=== PATIENT | female | born 1940 | race Asian ===

== ENCOUNTER 2016-10-12 19:47 | Emergency (ER) | payer MEDICARE, OTHER ==
[~2016-10-12] VITALS: Ht 157.5 cm; Wt 62.5 kg
[~2016-10-12 19:47] MED LIST: AMLO5TAB4 PO; ASPI-535 PO; ATEN50TA PO; DCL25TEC PO; GLIP1TAB5 PO; LORA-186 PO; MONT10TA21 PO; OLME1TAB28 PO
[2016-10-12 20:01] VITALS: Ht 157.5 cm; Wt 62.5 kg
[2016-10-12] MEDS ORDERED: FAMOTIDINE 20 MG INJ IV STA (21:13)
[2016-10-12] MEDS ORDERED: LIDOCAINE/MYLANTA 40 ML BTL PO STA (21:13)
[2016-10-12] MEDS ORDERED: SOD CHLORIDE 0.9% 500 ML IV STA (21:13)
--- NOTE | 2016-10-12 21:17 | ERA ---
ER Documentation Chief Complaint Date/Time DATE: 10/12/16 TIME: 21:17 Chief Complaint palpitations/dizziness/abdominal pain x 2 weeks HPI A very nice 76-year-old female who presents to the emergency room with epigastric abdominal discomfort for approximately 2 weeks. The patient describes some mild dull discomfort to the epigastrium with associated nausea and lightheadedness. She denies any vomiting, she denies any melena. The patient states that she felt like she might pass out today. She denies any exertional symptoms, no diaphoresis, no shortness of breath, no pleuritic pain. ROS All systems reviewed and are negative except as per history of present illness. Medications Home Meds Reported Medications Dextromethorphan Hb-Promethazine Hcl* (Promethazine DM* Syrup) 473 Ml Syrup, 5 ML PO Q6 Y for COUGH, ML 10/12/16 Glipizide/Metformin HCl (Glipizide-Metformin 2.5-500 mg) 1 Each Tablet, 1 EACH PO BID, TAB 10/12/16 Losartan Potassium* (Losartan Potassium*) 100 Mg Tablet, 100 MG PO DAILY, TAB 10/12/16 Omeprazole* (Omeprazole*) 20 Mg Capsule.dr, 20 MG PO DAILY, #30 CAP 10/12/16 Amlodipine Besylate* (Norvasc*) 5 Mg Tablet, 5 MG PO DAILY, TAB 10/12/16 Atenolol/Chlorthalidone (Atenolol-Chlorthalidone 50-25) 1 Each Tablet, 1 EACH PO DAILY, TAB 10/12/16 Discontinued Reported Medications Glipizide-Metformin (Glipizide-Metformin) 2.5-500 Tab, 1 TAB PO BID, TAB 11/09/14 Diclofenac Sodium* (Diclofenac Sodium*) 25 Mg Tablet.dr, 50 MG PO BID Y for PAIN , TAB 11/09/14 Loratadine* (Claritin*) 10 Mg Tablet, 10 MG PO DAILY Y for ALLERGIC REACTION, TAB 11/09/14 Montelukast Sodium* (Singulair*) 10 Mg Tablet, 10 MG PO HS, TAB 11/09/14 Atenolol* (Atenolol*) 50 Mg Tablet, 50 MG PO DAILY, TAB 05/19/14 Amlodipine Besylate* (Norvasc*) 5 Mg Tablet, 5 MG PO DAILY, TAB 05/19/14 Olmesartan-Hydrochlorothiazide (Benicar HCT) 1 Tab Tablet, 1 TAB PO DAILY 09/06/12 Aspirin Ec (Aspir 81) 81 Mg Tablet.dr, 81 MG PO DAILY 12/29/11 Allergies Allergies: Coded Allergies: No Known Allergy (Unverified , 10/12/16) PMhx/Soc History of Surgery: Yes (Cholecystectomy) Anesthesia Reaction: No Hx Neurological Disorder: No Hx Respiratory Disorders: No Hx Cardiac Disorders: Yes (HTN; Hypercholesterolemia) Hx Psychiatric Problems: No Hx Miscellaneous Medical Probl: Yes (DM; Gout; Gallstones) Hx Alcohol Use: No Hx Substance Use: No Hx Tobacco Use: No FmHx Family History: No diabetes Physical Exam Vitals Vital Signs Date Time Temp Pulse Resp B/P Pulse Ox O2 Delivery O2 Flow Rate FiO2 10/12/16 20:01 97.1 60 20 184/75 98 Physical Exam General: Well developed, well nourished, no acute distress Head: Normocephalic, atraumatic. Eyes: Pupils equally reactive, EOM intact ENT: Moist mucous membranes Neck: Supple, no lymphadenopathy Respiratory: Lungs clear bilaterally, no distress Cardiovascular: RRR, no murmurs, rubs, or gallops Abdominal: Soft, non-tender, non-distended, no peritoneal signs, negative De La Cruz sign, no rebound or guarding : Deferred MSK: No edema, no unilateral swelling, 5/5 strength Neurologic: Alert and oriented, moving all extremities, normal speech, no focal weakness, no cerebellar signs Skin: No rash Psych: Normal mood Results 24 hrs Current Medications Medications (Trade) Dose Ordered Sig/Ijeoma Route PRN Reason Start Time Stop Time Status Last Admin Dose Admin Sodium Chloride (NS) 500 ml @ 500 mls/hr Q1H STAT IV 10/12/16 21:13 10/12/16 22:12 DC 10/12/16 21:41 Famotidine (Pepcid Iv) 20 mg ONCE STAT IV 10/12/16 21:13 10/12/16 21:14 DC 10/12/16 21:41 Miscellaneous Medication (Gi Cocktail (2)) 40 ml ONCE STAT PO 10/12/16 21:13 10/12/16 21:15 DC 10/12/16 21:41 Ondansetron HCl (Zofran Inj) 4 mg ONCE STAT IV 10/12/16 22:09 10/12/16 22:10 DC 10/12/16 22:21 Procedures/MDM EKG, MONITORS, & DIAGNOSTIC IMAGING: EKG: I reviewed and interpreted a 12-lead EKG. Rhythm: Normal sinus rhythm Ectopy: None Intervals: No abnormalities ST segments: No elevations or depressions T waves: No contiguous inversions Chest x-ray: I reviewed and interpreted a 1 view of the chest Mediastinum: No enlargement Cardiac silhouette: No cardiomegaly Airspace: Clear lung mcintosh bilaterally without evidence of pneumothorax Bones: No evidence of fracture CT abdomen and pelvis: IMPRESSION: No acute findings. Hepatic steatosis. Mild colonic diverticulosis. Fibroid uterus. RPTAT: HIKT LAB INTERPRETATION: PENDING, difficult IV access MEDICAL DECISION MAKING: The patient presents with mild epigastric discomfort for 2 weeks and now lightheadedness. Broad differential exists including peptic ulcer disease, GI bleed, ACS versus mild dehydration. The patient otherwise has a mostly benign abdominal exam but given her age CT imaging of the abdomen and pelvis would be reasonable. EKG, chest x-ray, troponin would also be reasonable. The patient is otherwise extremely well-appearing here in the emergency room. No hemodynamic instability. She will benefit from fluid resuscitation and possible GI cocktail. ER COURSE: The patient's symptoms are improving. The patient's CT imaging and chest x-ray imaging as well as EKG are normal. Her laboratory testing is pending at this time. The patient will be endorsed to 'kareen arriving to follow-up on laboratory tests. If the patient continues to be well-appearing with normal laboratory values, outpatient management would be appropriate. Again, low clinical concern for cardiac etiology. I kept the patient and/or family informed of laboratory and diagnostic imaging results throughout the emergency room course. DISPOSITION PLAN: Pending laboratory testing but anticipate discharge home Departure Diagnosis: Primary Impression: Abdominal pain Qualified Code: R10.13 - Epigastric pain Additional Impression: Nausea Condition: Stable LUCHO GARZA MD Oct 12, 2016 21:17
[2016-10-12] MEDS ORDERED: ATEN1TAB3 PO (21:44)
[2016-10-12] MEDS ORDERED: AMLO5TAB4 PO (21:45)
[2016-10-12] MEDS ORDERED: OMEP20CA16 PO (21:45)
[2016-10-12] MEDS ORDERED: LOSA100T7 PO (21:46)
[2016-10-12] MEDS ORDERED: GLIP1TAB5 PO (21:46)
[2016-10-12] MEDS ORDERED: D-ME473S2 PO (21:47)
--- NOTE | 2016-10-12 22:00 | RADRPT ---
PROCEDURE: XR Chest. CLINICAL INDICATION: Abdominal pain. History of hypertension. TECHNIQUE: Single frontal view of the chest was obtained COMPARISON: Chest x-ray 10/28/2014 11:03 p.m. FINDINGS: There are atherosclerotic calcifications in the aortic arch. There are degenerative osteophytes in the thoracic spine. The soft tissues are generous. The heart is upper limits of normal for size. T he pulmonary vasculature, lung mcintosh and pleural spaces are normal. No changes noted compared to th e prior study. IMPRESSION: 1. There is no evidence of active cardiopulmonary disease. No change is noted compared to the prior study. 2. Atherosclerosis of the aortic arch. 3. Spondylosis of the thoracic spine. RPTAT:AAJJ Physician Eileen Date Time Electronically viewed and signed by Darian Silva Physician on 10/12/2016 22:00 /
[2016-10-12] MEDS ORDERED: ONDANSETRON 4 MG INJ IV STA (22:09)
--- NOTE | 2016-10-12 22:22 | RADRPT ---
PROCEDURE: CT abdomen and pelvis without intravenous contrast. CLINICAL INDICATION: Pain. TECHNIQUE: CT of the abdomen/pelvis was performed utilizing axial images with reconstructions in s agittal and coronal planes. The administered radiation dose is CTDI 7.5 mGy, DLP 387 mGy-cm. COMPARISON: 11/09/2014 FINDINGS: Visualized Chest: There is a small hiatal hernia. Abdomen: The liver, spleen, pancreas, and adrenal glands are unremarkable. Prior cholecystectomy is noted. The kidneys are without hydronephrosis. No definite urinary calculi are seen. There is no evidence of bowel obstruction. The appendix is normal. No intra-abdominal free air is seen. Some scattered diverticula are noted along the colon. There is no evidence of intra-abdominal adenopathy or free fluid. Pelvis: There is no evidence of pelvic adenopathy. The uterus is mildly enlarged and lobulated with some co arse calcifications, presumably due to fibroids. The ovaries are not seen. The urinary bladder is u nremarkable. There is no pelvic free fluid. Osseous structures: Unremarkable. IMPRESSION: No acute findings. Hepatic steatosis. Mild colonic diverticulosis. Fibroid uterus. RPTAT: HIKT .Jj Cartagena MD, MD Date Time Electronically viewed and signed by .Jj Cartagena MD, MD on 10/12/2016 22:22 .T/
[2016-10-12] MEDS ORDERED: ONDA4TAB14 PO (22:53)
[2016-10-12 23:06] LABS: ADD SCAN DIFF NO
[2016-10-12 23:10] LABS: BASOPHIL # 0.1 10^3/ul (0.0-0.1); BASOPHILS % 0.7 % (0.0-2.0); EOSINOPHILS # 0.5 10^3/ul (0.0-0.5); EOSINOPHILS % 4.2 % (0.0-7.0); HEMATOCRIT 42.8 % (37.0-47.0); HEMOGLOBIN 15.7 g/dl (12.0-16.0); LYMPHOCYTES # 2.5 10^3/ul (0.8-2.9); LYMPHOCYTES % 19.5 % (15.0-51.0); MEAN CORPUSCULAR HGB CONC 36.7 g/dl (32.0-37.0); MEAN CORPUSCULAR VOLUME 87.3 fl (82.0-101.0); MEAN PLATELET VOLUME 9.2 fl (7.4-10.4); MONOCYTE # 0.9 10^3/ul (0.3-0.9); MONOCYTES % 6.9 % (0.0-11.0); NEUTROPHIL # 8.6 10^3/ul (1.6-7.5); NEUTROPHILS % 68.1 % (39.0-77.0); PLATELET COUNT 386 10^3/UL (140-415); WHITE BLOOD COUNT 12.7 10^3/ul (4.8-10.8)
[2016-10-12 23:25] LABS: INR 0.85; PROTIME 11.6 Sec (12.2-14.2); PT RATIO 0.9
[2016-10-12 23:26] LABS: PARTIAL THROMBOPLASTIN TIME 32.3 Sec (25.0-35.0)
[2016-10-12 23:27] LABS: CHLORIDE 87 mmol/L (97-110); POTASSIUM 3.5 mmol/L (3.5-5.1); SODIUM 125 mmol/L (135-144)
[2016-10-12 23:30] LABS: ALANINE AMINOTRANSFERASE 22 IU/L (13-69); ALBUMIN/GLOBULIN RATIO 1.05; ALKALINE PHOSPHATASE 147 IU/L (42-121); ANION GAP 17 (8-16); ASPARTATE AMINO TRANSFERASE 26 IU/L (15-46); BILIRUBIN,INDIRECT 0.2 mg/dl (0-1.1); BILIRUBIN,TOTAL 0.2 mg/dl (0.2-1.3); BLOOD UREA NITROGEN 22 mg/dl (7-20); CARBON DIOXIDE 25 mmol/L (21-31); GLUCOSE 123 mg/dl (70-220); TOTAL PROTEIN 7.8 g/dl (6.1-8.1)
[2016-10-13 00:01] LABS: TROPONIN-I < 0.012 ng/ml (0.00-0.12)
[2016-10-13] MEDS ORDERED: ONDANSETRON 4 MG INJ IV STA (01:23)
[2016-10-13] MEDS ORDERED: SOD CHLORIDE 0.9% 500 ML IV ONE (01:30)
[2016-10-13] MEDS ORDERED: SOD CHLORIDE 0.9% 1,000 ML IV ONE (01:30)
--- NOTE | 2016-10-13 01:46 | EN ---
Date/Time of Note Date/Time of Note DATE: 10/13/16 TIME: 01:39 ER Progress Note HPI: 76-year-old woman presented with dizziness and was signed out to me pending CT scan and labs. Patient states her symptoms have improved while here although she has continued mild nausea and dizziness. She denies chest pain or shortness of breath, and states she feels better overall. Past medical history: Diabetes and hypertension Physical exam: GENERAL: Well-developed, well-nourished, nontoxic and appear HEENT: Moist mucous membranes, pink conjunctiva, no cervical spine tenderness or step-off deformities, no goiter, no jaundice or icterus, extraocular movements intact without pain. NEURO: Alert and oriented 3, cranial nerves II through XII intact bilaterally, pupils equal round reactive to light, no focal deficits or facial asymmetry, CARDIAC: Regular rate and rhythm, no murmurs rubs or gallops LUNGS: Clear bilaterally no wheezing crackles or stridor ABDOMEN: Soft nontender, no guarding, no rigidity, no rebound, no psoas sign no obturator sign. Normoactive bowel sounds SKIN: Warm and dry to touch, no abrasions, contusions, or hematomas, no lacerations, no ecchymosis, no target lesions, and without ulcers EXTREMITIES: No clubbing cyanosis or edema, calves are bilaterally symmetrical. PSYCH: Normal affect without agitation or irritability Medical decision making: CT scan of abdomen and pelvis normal, no acute findings. CBC was unremarkable, electrolytes revealed hyponatremia at 125 and evidence of dehydration with a BUN/creatinine of 22/0.8. Liver function tests were unremarkable, troponin was negative. I ordered 1 L of normal saline intravenously, this should help supplement her sodium, although I did review her past labs and her sodium is usually on the lower side of normal and in the past she has had palmira hyponatremia. Patient's vital signs are normal at this time and she is without complaints. She has been fluid hydrated here and I recommended she follow-up with her PMD for continued outpatient management and a repeat sodium level. I suspect IV hydration here helped supplement her sodium and I do not feel she requires admission for this. Please refer to Dr. Rodríguez's dictation for full ER course and medical decision making. Patient feels much better at this time, and vital signs are normal, symptoms have improved. I did give strict instructions to return to the ED if symptoms continue or worsen, patient will otherwise follow-up with primary care physician. Patient understood instructions and agreed to plan. Diagnostic impression: #1) dizziness 2.) Dehydration 3.) Acute hyponatremia MANJU NICHOLE MD Oct 13, 2016 01:46
[2016-10-13 02:06] VITALS: BP 144/125; PULSE 68; RESP 20
== END 2016-10-13 02:06 | disposition home or self-care (01) ==
LOC: E/R 19:47
DX: R10.13 Epigastric pain (principal); R11.0 Nausea; I10 Essential (primary) hypertension; E11.9 Type 2 diabetes mellitus without complications; Z79.82 Long term (current) use of aspirin; Z79.84 Long term (current) use of oral hypoglycemic drugs
CPT/HCPCS: 71010; 74176; 80053; 83690; 84484; 85025; 85610; 85730; 96374; 96375; 96376; 99285; J2405; J7030; J7040; 93005

== ENCOUNTER 2017-01-10 21:53 | Inpatient (IN) | payer MEDICARE, OTHER ==
[~2017-01-10] VITALS: Ht 152.4 cm; Wt 61.5 kg
[~2017-01-10 21:53] MED LIST changes: -ASPI-535 PO; +ATEN1TAB3 PO; -ATEN50TA PO; +D-ME473S2 PO; -DCL25TEC PO; -LORA-186 PO; +LOSA100T7 PO; -MONT10TA21 PO; -OLME1TAB28 PO; +OMEP20CA16 PO; +ONDA4TAB14 PO
--- NOTE | 2017-01-10 22:14 | ERA ---
ER Documentation Chief Complaint Date/Time DATE: 01/10/17 TIME: 22:13 Chief Complaint MID ABD PAIN ON AND OFF X 2 WEEKS WITH DIARRHEA NO N/V HPI The patient is a 76-year-old female, presenting to the ER because of intermittent abdominal pain for the last 2 weeks, 04/11, no aggravating or relieving factor. She was seen on October 12, 2016 and had extensive workup including a negative abdominal pelvic CT that only show hepatic steatosis and fibroid. She denies fever, chills, syncope, near syncope, neck pain, chest pain , dysuria, diarrhea, constipation. She does not smoke nor drink Past medical history: Diabetes mellitus, hypertension, dyslipidemia, gout Past surgical history: Cholecystectomy ROS All systems reviewed and are negative except as per history of present illness. Medications Home Meds Reported Medications Atorvastatin (Atorvastatin) 10 Mg Tablet, 10 MG PO QHS, #30 TAB 01/10/17 Zwjmwi-Enaeoxrh-Uzjamco* (Creon DR* 12,000) 12,000 L-38,000-60,000 Unit Capsule.dr, 1 CAP PO WITH MEALS, CAP 01/10/17 Aspirin* (Aspirin* Chew) 81 Mg Tab.chew, 81 MG PO DAILY, TAB.CHEW 01/10/17 Glipizide/Metformin HCl (Glipizide-Metformin 2.5-500 mg) 1 Each Tablet, 1 EACH PO BID, TAB 10/12/16 Losartan Potassium* (Losartan Potassium*) 100 Mg Tablet, 100 MG PO DAILY, TAB 10/12/16 Amlodipine Besylate* (Norvasc*) 5 Mg Tablet, 5 MG PO DAILY, TAB 10/12/16 Atenolol/Chlorthalidone (Atenolol-Chlorthalidone 50-25) 1 Each Tablet, 1 EACH PO DAILY, TAB 10/12/16 Discontinued Reported Medications Dextromethorphan Hb-Promethazine Hcl* (Promethazine DM* Syrup) 473 Ml Syrup, 5 ML PO Q6 Y for COUGH, ML 10/12/16 Omeprazole* (Omeprazole*) 20 Mg Capsule.dr, 20 MG PO DAILY, #30 CAP 10/12/16 Discontinued Scripts Ondansetron (Ondansetron Odt) 4 Mg Tab.rapdis, 4 MG PO Q6H Y for NAUSEA AND/OR VOMITING, #30 TAB Prov:LUCHO GARZA MD 10/12/16 Allergies Allergies: Coded Allergies: No Known Allergy (Unverified , 01/10/17) PMhx/Soc History of Surgery: Yes (Cholecystectomy) Anesthesia Reaction: No Hx Neurological Disorder: No Hx Respiratory Disorders: No Hx Cardiac Disorders: Yes (HTN; Hypercholesterolemia) Hx Psychiatric Problems: No Hx Miscellaneous Medical Probl: Yes (DM; Gout; Gallstones) Hx Alcohol Use: No Hx Substance Use: No Hx Tobacco Use: No Physical Exam Vitals Vital Signs Date Time Temp Pulse Resp B/P Pulse Ox O2 Delivery O2 Flow Rate FiO2 01/10/17 21:55 97.9 67 20 208/89 100 Physical Exam Const: No acute distress. Head: Atraumatic. Eyes: Normal Conjunctiva. ENT: Normal External Ears, Nose and Mouth. Neck: Full range of motion. No meningismus. Resp: Clear to auscultation bilaterally. Cardio: Regular rate and rhythm, no murmurs. Abd: Soft, non distended, normal bowel sounds, minimal epigastric tenderness, no right lower quadrant, right upper quadrant, rigidity, rebound, CVA tenderness Skin: No petechiae or rashes. Back: No midline or flank tenderness. Ext: No cyanosis, or edema. Neur: Awake and alert. No focal deficit Psych: Normal Mood and Affect. Result Diagram: 01/10/17224401/10/172244 Results 24 hrs Laboratory Tests Test 01/10/17 22:45 01/10/17 23:06 01/10/17 23:10 White Blood Count 8.710^3/ul Red Blood Count 4.5110^6/ul Hemoglobin 14.5g/dl Hematocrit 39.3% Mean Corpuscular Volume 87.1fl Mean Corpuscular Hemoglobin 32.2pg Mean Corpuscular Hemoglobin Concent 36.9g/dl Red Cell Distribution Width 11.9% Platelet Count 85896^3/UL Mean Platelet Volume 9.3fl Neutrophils % 63.5% Lymphocytes % 23.6% Monocytes % 7.2% Eosinophils % 4.7% Basophils % 0.3% Nucleated Red Blood Cells % 0.0/100WBC Neutrophils # 5.510^3/ul Lymphocytes # 2.110^3/ul Monocytes # 0.610^3/ul Eosinophils # 0.410^3/ul Basophils # 0.010^3/ul Nucleated Red Blood Cells # 0.010^3/ul Sodium Level 119mmol/L Potassium Level 3.1mmol/L Chloride Level 78mmol/L Carbon Dioxide Level 29mmol/L Anion Gap 15 Blood Urea Nitrogen 12mg/dl Creatinine 0.70mg/dl Glucose Level 129mg/dl Calcium Level 9.2mg/dl Total Bilirubin 0.6mg/dl Direct Bilirubin 0.00mg/dl Indirect Bilirubin 0.6mg/dl Aspartate Amino Transf (AST/SGOT) 26IU/L Alanine Aminotransferase (ALT/SGPT) 35IU/L Alkaline Phosphatase 102IU/L Total Protein 8.2g/dl Albumin 4.2g/dl Globulin 4.00g/dl Albumin/Globulin Ratio 1.05 Lipase 54U/L Urine Random Sodium 69mmol/L Bedside Urine pH (LAB) 7.0 Bedside Urine Protein (LAB) Negative Bedside Urine Glucose (UA) Negative Bedside Urine Ketones (LAB) Negative Bedside Urine Blood Trace-intact Bedside Urine Nitrite (LAB) Negative Bedside Urine Leukocyte Esterase (L 2+ Current Medications Medications (Trade) Dose Ordered Sig/Ijeoma Route PRN Reason Start Time Stop Time Status Last Admin Dose Admin Morphine Sulfate (morphine) 4 mg ONCE STAT IV 01/10/17 22:22 01/10/17 22:24 DC 01/10/17 22:48 Ondansetron HCl (Zofran Inj) 4 mg ONCE STAT IV 01/10/17 22:22 01/10/17 22:24 DC 01/10/17 22:48 Pantoprazole 40 mg 40 mg ONCE ONCE IV 01/10/17 22:30 01/10/17 22:31 DC 01/10/17 22:48 Potassium Chloride 250 ml @ 62.5 mls/hr ONCE ONCE IVPB 01/11/17 00:00 01/11/17 03:59 01/11/17 00:41 Ceftriaxone Sodium (Rocephin) 50 ml @ 100 mls/hr ONCE ONCE IVPB 01/11/17 00:00 01/11/17 00:29 DC 01/11/17 00:07 Procedures/MDM MEDICAL MAKING DECISION: The patient is a 76-year-old female, presenting to the ER because of acute abdominal pain of unclear etiology, acute hyponatremia, acute hypokalemia, acute cystitis. She was treated with morphine 4 mg IV for pain, Zofran 4 mg IV for now, Protonix 40 mg IV for epigastric abdominal pain, potassium chloride 40 mEq p.o. for low potassium, Rocephin 1 g IV for acute cystitis The patient is euvolemic hyponatremic. He will be up to Dr. Woods the mechanic marine engine to start her on 3% sodium chloride The differential diagnoses considered include but are not limited to malignancy , SIADH, hypothyroidism, electrolyte imbalance Departure Diagnosis: Primary Impression: Hyponatremia Additional Impressions: Hypokalemia UTI (urinary tract infection) Depression Condition: Stable Comments I discussed the findings with the patient. I discussed the patient with her physician Dr. Leslie at 12:05 AM who recommended to admit the patient that I Dr. Woods I discussed the patient with Dr. Woods. who was made aware of the lab, the treatment, the patient condition. The patient is admitted to telemetry at 12:20 AM CANDE GARCIA MD January 10, 2017 22:14
[2017-01-10] MEDS ORDERED: ONDANSETRON 4 MG INJ IV STA (22:22)
[2017-01-10] MEDS ORDERED: morphine 4 MG/ML VIAL IV STA (22:22)
[2017-01-10] MEDS ORDERED: PANTOPRAZOLE 40 MG INJ IV ONE (22:30)
[2017-01-10 23:06] LABS: ADD SCAN DIFF NO
[2017-01-10] MEDS ORDERED: ATOR10TA65 PO (23:07)
[2017-01-10] MEDS ORDERED: ASPI81TA3 PO (23:07)
[2017-01-10] MEDS ORDERED: LIPA1CAP4 PO (23:07)
[2017-01-10 23:08] LABS: BASOPHILS % 0.3 % (0.0-2.0); EOSINOPHILS # 0.4 10^3/ul (0.0-0.5); EOSINOPHILS % 4.7 % (0.0-7.0); HEMATOCRIT 39.3 % (37.0-47.0); HEMOGLOBIN 14.5 g/dl (12.0-16.0); LYMPHOCYTES # 2.1 10^3/ul (0.8-2.9); LYMPHOCYTES % 23.6 % (15.0-51.0); MEAN CORPUSCULAR HEMOGLOBIN 32.2 pg (29.0-33.0); MEAN CORPUSCULAR HGB CONC 36.9 g/dl (32.0-37.0); MEAN CORPUSCULAR VOLUME 87.1 fl (82.0-101.0); MEAN PLATELET VOLUME 9.3 fl (7.4-10.4); MONOCYTE # 0.6 10^3/ul (0.3-0.9); MONOCYTES % 7.2 % (0.0-11.0); NEUTROPHIL # 5.5 10^3/ul (1.6-7.5); NEUTROPHILS % 63.5 % (39.0-77.0); PLATELET COUNT 343 10^3/UL (140-415); RED BLOOD COUNT 4.51 10^6/ul (4.20-5.40); RED CELL DISTRIBUTION WIDTH 11.9 % (11.5-14.5); WHITE BLOOD COUNT 8.7 10^3/ul (4.8-10.8)
[2017-01-10 23:09] LABS: URINE BLOOD (Dip) POC Trace-intact (NEGATIVE)
[2017-01-10 23:25] LABS: ALBUMIN 4.2 g/dl (3.3-4.9)
[2017-01-10 23:26] LABS: POTASSIUM 3.1 mmol/L (3.5-5.1)
[2017-01-10 23:28] LABS: BILIRUBIN,INDIRECT 0.6 mg/dl (0-1.1); BILIRUBIN,TOTAL 0.6 mg/dl (0.2-1.3); CALCIUM 9.2 mg/dl (8.4-10.2); CREATININE 0.7 mg/dl (0.44-1.00); TOTAL PROTEIN 8.2 g/dl (6.1-8.1)
[2017-01-10 23:39] LABS: ALBUMIN/GLOBULIN RATIO 1.05
[2017-01-11] VITALS (13 sets, daily range): BP systolic 141–184; BP diastolic 68–84; PULSE 61–69; RESP 15–20; Ht 152.4 cm; Wt 61.5 kg
[2017-01-11] MEDS ORDERED: POTASSIUM CHLORIDE 250 ML IVPB ONE
[2017-01-11] MEDS ORDERED: CEFTRIAXONE 1 GM/50 ML (PMX) 50 ML IVPB ONE
[2017-01-11] MEDS ORDERED: DOCUSATE SODIUM 100 MG CAP PO PRN (01:00)
[2017-01-11] MEDS ORDERED: NACL 0.9% 3 ML SYG IV SCH (01:00)
[2017-01-11] MEDS ORDERED: ACETAMINOPHEN 325 MG TAB PO PRN (01:00)
[2017-01-11] MEDS ORDERED: BISACODYL (EC) 5 MG TAB PO PRN (01:00)
[2017-01-11] MEDS ORDERED: MAGNESIUM HYDROXIDE 30ML CUP PO PRN (01:00)
[2017-01-11] MEDS ORDERED: ACETAMINOPHEN 650 MG SUPP PR PRN (01:00)
[2017-01-11] MEDS: ONDANSETRON 4 MG INJ IV PRN ×2 (01:56→22:54)
[2017-01-11] MEDS: NS + KCL 20 MEQ 1,000 ML IV SCH ×3 (05:15→23:02)
[2017-01-11] MEDS: PANTOPRAZOLE (EC) 40 MG TAB PO SCH (05:15)
[2017-01-11] MEDS: AMLODIPINE 5 MG TAB PO SCH (08:13)
[2017-01-11] MEDS: LOSARTAN 50 MG TAB PO SCH (08:13)
[2017-01-11] MEDS: ASPIRIN 81 MG TAB PO SCH (08:13)
[2017-01-11 08:35] LABS: POTASSIUM 3.6 mmol/L (3.5-5.1)
[2017-01-11 08:37] LABS: ALBUMIN/GLOBULIN RATIO 1.05; BILIRUBIN,INDIRECT 0.4 mg/dl (0-1.1); BILIRUBIN,TOTAL 0.4 mg/dl (0.2-1.3); CREATININE 0.69 mg/dl (0.44-1.00); TOTAL PROTEIN 7.8 g/dl (6.1-8.1)
[2017-01-11 08:38] LABS: CALCIUM 8.7 mg/dl (8.4-10.2)
[2017-01-11] MEDS: CREON (12k-38k-60k) 1 CAP PO SCH ×3 (09:42→17:40)
--- NOTE | 2017-01-11 17:03 | PN ---
Date/Time of Note Date/Time of Note DATE: 01/11/17 TIME: 17:01 Assessment/Plan VTE Prophylaxis VTE Prophylaxis Intervention: ambulation Lines/Catheters IV [facility]ter Type [facility]from [facility]): Peripheral IV Urinary Cath still in place: No Assessment/Plan Chief Complaint/Hosp Course 1. Abdominal pain Problems: Assessment/Plan 1. Hand P dictated Subjective 24 Hr Interval Summary Cardiovascular: no complaints Gastrointestinal: decreased appetite, flatus, pain Exam/Review of Systems Vital Signs Vitals Vital Signs Date Time Temp Pulse Resp B/P Pulse Ox O2 Delivery O2 Flow Rate FiO2 01/11/17 16:18 61 01/11/17 16:06 98.0 18 165/68 96 01/11/17 00:52 Room Air Intake and Output 01/10/17 01/10/17 01/11/17 15:00 23:00 07:00 Intake Total 740 ml Balance 740 ml Exam Constitutional: alert, oriented Psych: no complaints Eyes: nl conjunctiva ENMT: nl external ears & nose Neck: supple Respiratory: clear to auscultation Cardiovascular: other (sr), regular rate and rhythm Results Result Diagram: 01/10/17 2245 01/11/17 0710 Results 24 hrs Laboratory Tests Test 01/10/17 22:45 01/10/17 23:06 01/10/17 23:10 01/11/17 06:07 White Blood Count 8.7 # Red Blood Count 4.51 Hemoglobin 14.5 Hematocrit 39.3 Mean Corpuscular Volume 87.1 Mean Corpuscular Hemoglobin 32.2 Mean Corpuscular Hemoglobin Concent 36.9 Red Cell Distribution Width 11.9 Platelet Count 343 Mean Platelet Volume 9.3 Neutrophils % 63.5 Lymphocytes % 23.6 Monocytes % 7.2 Eosinophils % 4.7 Basophils % 0.3 Nucleated Red Blood Cells % 0.0 Neutrophils # 5.5 Lymphocytes # 2.1 Monocytes # 0.6 Eosinophils # 0.4 Basophils # 0.0 Nucleated Red Blood Cells # 0.0 Sodium Level 119 *L Potassium Level 3.1 L Chloride Level 78 L Carbon Dioxide Level 29 Anion Gap 15 Blood Urea Nitrogen 12 Creatinine 0.70 Glucose Level 129 Calcium Level 9.2 Total Bilirubin 0.6 Direct Bilirubin 0.00 Indirect Bilirubin 0.6 Aspartate Amino Transf (AST/SGOT) 26 Alanine Aminotransferase (ALT/SGPT) 35 Alkaline Phosphatase 102 Total Protein 8.2 H Albumin 4.2 Globulin 4.00 H Albumin/Globulin Ratio 1.05 Lipase 54 Urine Osmolality 326 Urine Random Sodium 69 Bedside Urine pH (LAB) 7.0 Bedside Urine Protein (LAB) Negative Bedside Urine Glucose (UA) Negative Bedside Urine Ketones (LAB) Negative Bedside Urine Blood Trace-intact H Bedside Urine Nitrite (LAB) Negative Bedside Urine Leukocyte Esterase (L 2+ H Bedside Glucose 193 Test 01/11/17 07:10 Sodium Level 120 L Potassium Level 3.6 Chloride Level 81 L Carbon Dioxide Level 27 Anion Gap 16 Blood Urea Nitrogen 10 Creatinine 0.69 Glucose Level 147 Osmolality 255 L Calcium Level 8.7 Total Bilirubin 0.4 Direct Bilirubin 0.00 Indirect Bilirubin 0.4 Aspartate Amino Transf (AST/SGOT) 35 Alanine Aminotransferase (ALT/SGPT) 39 Alkaline Phosphatase 88 Total Protein 7.8 Albumin 4.0 Globulin 3.80 H Albumin/Globulin Ratio 1.05 Medications Medications Current Medications Amlodipine Besylate (Norvasc) 5 mg DAILY PO Last administered on 01/11/17 08: 13; Admin Dose 5 MG; Start 01/11/17 at 09:00 Aspirin (Aspirin) 81 mg DAILY PO Last administered on 01/11/17 08:13; Admin Dose 81 MG; Start 01/11/17 at 09:00 Atorvastatin Calcium (Lipitor) 10 mg QHS PO ; Start 01/11/17 at 21:00 Losartan Potassium 100 mg 100 mg DAILY PO Last administered on 01/11/17 08:13 ; Admin Dose 100 MG; Start 01/11/17 at 09:00 Potassium Chloride/Sodium Chloride (NS-KCl 20 Meq) 1,000 ml @ 70 mls/hr [id number] IV Last administered on 01/11/17 08:12; Admin Dose 70 MLS/HR; Start at 00:41 Ondansetron HCl (Zofran Inj) 4 mg Q6H PRN IV NAUSEA AND/OR VOMITING Last administered on 01/11/17 01:56; Admin Dose 4 MG; Start 01/11/17 at 01:00 Acetaminophen (Tylenol Tab) 650 mg Q6H PRN PO PAIN LEVEL 1-3 OR FEVER; Start at 01:00 Acetaminophen (Tylenol Supp) 650 mg Q6H PRN DE PAIN LEVEL 1-3 OR FEVER; Start 01/11/17 at 01:00 Docusate Sodium (Colace) 100 mg Q12H PRN PO CONSTIPATION; Start 01/11/17 at 01: 00 Magnesium Hydroxide (Milk Of Mag) 30 ml DAILY PRN PO CONSTIPATION; Start at 01:00 Bisacodyl (Dulcolax) 5 mg DAILY PRN PO CONSTIPATION; Start 01/11/17 at 01:00 Pantoprazole (Protonix Tab) 40 mg DAILY@06 PO Last administered on 01/11/17t 05 :15; Admin Dose 40 MG; Start 01/11/17 at 06:00 TAMAR GRUBER January 11, 2017 17:03
[2017-01-11] MEDS ORDERED: BARIUM SULF 2% 450 ML BTL (BERRY SMOOTHIE) PO ONE (17:30)
[2017-01-11] MEDS: MECLIZINE 25 MG TAB PO SCH (17:59)
--- NOTE | 2017-01-11 18:54 | CONS ---
DATE OF ADMISSION: 01/11/2017 DATE OF CONSULTATION: 01/11/2017 GASTROENTEROLOGY CONSULTATION HISTORY OF PRESENT ILLNESS: The patient is a 76-year-old female with a history of diabetes mellitus and hypertension who comes to the ER complaining of abdominal pain on and off for the last 1 year, ever since the gallbladder was removed. The pain is associated with nausea and vomiting. She was i n the ER even in October and had extensive workup including CAT scan which showed hepatic steatosis and fibroid. She denies chest pain. No diarrhea, no GI bleeding, no weight loss. PAST MEDICAL HISTORY: Diabetes mellitus, hypertension, dyslipidemia, gout. PAST SURGICAL HISTORY: Cholecystectomy. REVIEW OF SYSTEMS: Negative. MEDICATIONS: All reviewed. ALLERGIES: NONE. PHYSICAL EXAMINATION: VITALS: Stable. HEENT: Unremarkable. NECK: Supple, no thyromegaly, no lymphadenopathy. CARDIOVASCULAR: No murmur, gallop, or click. LUNGS: Clear. ABDOMEN: Soft. Tenderness in the epigastric area. Bowel sounds good. No mass upper abdomen. EXTREMITIES: No edema. CENTRAL NERVOUS SYSTEM: Grossly within normal limits. LABORATORY DATA: CMP was grossly within normal limits including alkaline phosphatase. Sodium was 1 90. IMPRESSION: 1. Abdominal pain, intermittent with nausea, vomiting. Rule out bile duct stone. Rule out diabeti c gastroparesis. Rule out diabetes. Rule out peptic ulcer disease. 2. Hyponatremia. 3. Gout. 4. Diabetes mellitus. 5. Hypertension. PLAN: At this point is to start the patient empirically on Reglan. Continue PPI. CT scan has been ordered. We will review it. If it is negative, we will get MRCP done. Dictated By: JENNIFER INFANTE MD PJ/NTS Conf#: [id number] DID#: [id number] CC: KYLE CHUA MD;*EndCC*
--- NOTE | 2017-01-11 19:36 | HP ---
DATE OF ADMISSION: 01/11/2017 HISTORY OF PRESENT ILLNESS: The patient was admitted on January 10, via the emergency room. A 76-year-old female was presented to emergency room due to abdominal pain for the last 2 weeks. Her pain was 8/10. She reported no new food, no eating in a restaurant. There is no other aggravating factor. She was just recently seen on October 12 and she has similar symptoms and extensive workup included negative abdominal pelvic CT. She denies fever, chills, syncope, near syncope, neck pain, chest pain, dysuria, diarrhea, constipation. PAST MEDICAL HISTORY: Patient is positive for diabetes mellitus type 2, hypertension, dyslipidemia, gout. PAST SURGICAL HISTORY: Cholecystectomy. REVIEW OF SYSTEMS: CONSTITUTIONAL: The patient denied any weight changes, no weakness, no fatigue , no fever. SKIN: No new rashes, lumps, no new moles. HEENT: No vision changes. Clear nose breathing, good full swallowing, except now she reports a bad appetite. NECK: No pain. BREASTS: No lumps. RESPIRATORY: No shortness of breath, no cough. CARDIOVASCULAR: No palpitation. GASTROINTESTINAL: Positive for pain and decreased appetite. Patient had stool on the same day when she was in the emergency room, 01/10/2017. Stool was normal color and consistency. PERIPHERAL VASCULAR: Denied any clubbing. URINARY: Denied any hesitancy or urgency. GENITAL: Denied. Patient reports that she has got fibroid. It was found on her last emergency room visit. MUSCULOSKELETAL: Denied any decreased range of motion, any pain in muscle. PSYCHIATRIC: Denies psychiatric condition. NEUROLOGIC: Denies any neurological foci or deficits. HEMATOLOGIC: Negative. ENDOCRINE: Negative. OBJECTIVE DATA: VITAL SIGNS: Patient is afebrile. Blood pressure is 165/68, respiration 18, pulse 96, and temperature 98.0. GENERAL: She is in generally good health except for the known medical condition. She is lying down on the bed with a smile on her face. There is no odor. She is alert, oriented x3 with normal reaction to people and things. SKIN: Sun damaged skin, no edema found. HEENT: Negative. NECK: No thyromegaly and no lymphadenopathy. CHEST: Clear bilaterally. HEART: S1, S2, no murmur found. ABDOMEN: Soft, slightly painful on palpation in the left hypochondrial quadrant. Bowel sounds x4 in all quadrants. GENITAL: Normal female organs. MUSCULOSKELETAL: Normal range of motion, no abnormalities. NEUROLOGICAL: II-XII intact. ASSESSMENT: 1. Abdominal pain with similar symptoms recently in October. Patient has history of hepatic steatosis, status post cholecystectomy. 2. Hypertension, controlled. 3. Dyslipidemia. 4. Gout. PLAN: 1. Dr. Cuevas is on the case. He will look at the patient's abdomen and we are going to perform CT scan of the abdomen without contrast. 2. Deep venous thrombosis prophylaxis. GI prophylaxis by Protonix. The patient has Zofran as needed if she has nausea, pain medication. 3. Antibiotics, Rocephin once a day. Dictated By: TAMAR GRUBER MACHINE SHOP INSPECTOR for KYLE CHUA MD, AM/JULIO C Conf#: [id number] DID#: [id number] MTDD
[2017-01-11] MEDS: ATORVASTATIN 10 MG TAB PO SCH (21:15)
[2017-01-11] MEDS: NYSTATIN SUSP 5 ML CUP PO SCH (21:15)
[2017-01-11] MEDS: METOCLOPRAMIDE 10 MG INJ IV SCH (23:23)
[2017-01-12] VITALS (11 sets, daily range): BP systolic 127–159; BP diastolic 60–74; PULSE 59–87; RESP 15–18
--- NOTE | 2017-01-12 04:11 | RADRPT ---
PROCEDURE: CT Abdomen and Pelvis without contrast. CLINICAL INDICATION: Abdominal pain TECHNIQUE: CT scan of the abdomen and pelvis without contrast was performed on a multidetector hig h-resolution CT scanner. The patient was scanned without intravenous contrast. 900 cc of Redicat was administered orally. Coronal and sagittal reformatted images were obtained from the axial source i mages. Images were reviewed on a high-resolution PACS workstation. The total exam CTDI equals 7.28 m Gy and the total exam DLP equals 407.55 mGy-cm. One or more the following dose reduction techniques were utilized: Automated exposure control, adjus tment of the mA/ or kV according to patient's size, or use of iterative reconstruction technique. COMPARISON: 10/12/2016 FINDINGS: CT abdomen: Minimal linear atelectasis/fibrosis at lung bases. Coronary artery calcification. The liver is norm al in size and density without focal mass or intrahepatic biliary dilatation. The spleen is normal in size and homogeneous in density. The stomach is partially collapsed, but is grossly unremarkable . The pancreas as visualized is normal. Cholecystectomy. The adrenal glands are symmetric and nor mal. The kidneys are symmetrically unremarkable as well. No renal calculus or obstructive uropathy or mass lesion is seen. The aorta is of normal caliber. Aortic vascular calcifications are present. Calcification in bilat eral renal and iliac arteries. There is no retroperitoneal lymphadenopathy. The darius hepatis marv on is clear. Diverticula in sigmoid , transverse and ascending colon. There is no specific evidenc e of acute diverticulitis seen. Orally administered contrast is seen to the level of the ascending c olon. CT pelvis: The small bowel loops situated within the pelvis are unremarkable. Small calcifications in the uteru s suggestive of fibroid calcifications. There is 1.6 cm oval area of soft tissue density appears to arise from the right anterior uterine fundus suggestive of a fibroid again seen. The pelvic sidewal ls and inguinal regions are clear. The sigmoid colon and rectum are remarkable for sigmoid divertic ulosis. No lymphadenopathy or free fluid is seen. No acute inflammation is seen. There is an unr emarkable appendix. Small scattered likely bone islands again seen. Degenerative changes at sacroiliac joints. Lumbar spondylosis. IMPRESSION: Atherosclerosis. Colonic diverticulosis. No specific evidence of acute diverticulitis seen. Sugge stive of uterine fibroids again seen. Please see above. RPTAT: HJES .Lul Barrera MD, MD Date Time Electronically viewed and signed by .Lul Barrera MD, on 01/12/2017 04:10 .S/
[2017-01-12] MEDS: PANTOPRAZOLE (EC) 40 MG TAB PO SCH (06:20)
[2017-01-12] MEDS: METOCLOPRAMIDE 10 MG INJ IV SCH ×3 (06:20→18:37)
[2017-01-12 08:04] LABS: ADD SCAN DIFF NO
[2017-01-12 08:13] LABS: BASOPHILS % 0.6 % (0.0-2.0); EOSINOPHILS # 0.5 10^3/ul (0.0-0.5); EOSINOPHILS % 6.3 % (0.0-7.0); HEMATOCRIT 38.3 % (37.0-47.0); HEMOGLOBIN 13.6 g/dl (12.0-16.0); LYMPHOCYTES # 2.2 10^3/ul (0.8-2.9); LYMPHOCYTES % 30.2 % (15.0-51.0); MEAN CORPUSCULAR HEMOGLOBIN 31.7 pg (29.0-33.0); MEAN CORPUSCULAR HGB CONC 35.5 g/dl (32.0-37.0); MEAN CORPUSCULAR VOLUME 89.3 fl (82.0-101.0); MEAN PLATELET VOLUME 9.6 fl (7.4-10.4); MONOCYTE # 0.7 10^3/ul (0.3-0.9); MONOCYTES % 9.5 % (0.0-11.0); NEUTROPHIL # 3.8 10^3/ul (1.6-7.5); PLATELET COUNT 320 10^3/UL (140-415); RED BLOOD COUNT 4.29 10^6/ul (4.20-5.40); RED CELL DISTRIBUTION WIDTH 12.4 % (11.5-14.5); WHITE BLOOD COUNT 7.2 10^3/ul (4.8-10.8)
[2017-01-12 08:38] LABS: CREATININE 0.75 mg/dl (0.44-1.00); POTASSIUM 3.8 mmol/L (3.5-5.1)
[2017-01-12] MEDS: CREON (12k-38k-60k) 1 CAP PO SCH ×3 (10:11→18:37)
[2017-01-12] MEDS: ASPIRIN 81 MG TAB PO SCH (10:12)
[2017-01-12] MEDS: AMLODIPINE 5 MG TAB PO SCH (10:12)
[2017-01-12] MEDS: LOSARTAN 50 MG TAB PO SCH (10:12)
[2017-01-12] MEDS: NYSTATIN SUSP 5 ML CUP PO SCH ×2 (10:12→13:11)
[2017-01-12] MEDS: MECLIZINE 25 MG TAB PO SCH ×2 (10:12→20:33)
--- NOTE | 2017-01-12 13:32 | CONS ---
Date/Time of Note Date/Time of Note DATE: 01/12/17 TIME: 13:32 Assessment/Plan Assessment/Plan Additional Assessment/Plan IMPRESSION: 1. Abdominal pain, intermittent with nausea, vomiting. Rule out bile duct stone. Rule out diabetic gastroparesis. Rule out diabetes. Rule out peptic ulcer disease. 2. Hyponatremia. 3. Gout. 4. Diabetes mellitus. 5. Hypertension. PLAN: At this point is to start the patient empirically on Reglan. Continue PPI. CT scan has been ordered. We will review it. If it is negative, we will get MRCP done. MRCP today if negative then we will do EGD. Patient did not have any EGD the dictation is on the wrong patient Consultation Date/Type/Reason Admit Date/Time January 11, 2017 at 00:25 Initial Consult Date 24 HR Interval Summary Constitutional: improved Exam/Review of Systems Vital Signs Vitals Vital Signs Date Time Temp Pulse Resp B/P Pulse Ox O2 Delivery O2 Flow Rate FiO2 01/12/17 12:58 63 01/12/17 12:10 98.0 17 143/71 97 01/11/17 00:52 Room Air Intake and Output 01/11/17 01/11/17 01/12/17 15:00 23:00 07:00 Intake Total 420 ml 650 ml 875 ml Balance 420 ml 650 ml 875 ml Exam Constitutional: alert, oriented, well developed Psych: nl mood/affect, no complaints Head: atraumatic, normocephalic Eyes: EOMI, PERRL, nl conjunctiva, nl lids, nl sclera ENMT: nl external ears & nose, nl lips & teeth, nl nasal mucosa & septum Neck: non-tender, supple Respiratory: clear to auscultation, normal air movement Cardiovascular: nl pulses, regular rate and rhythm Gastrointestinal: nl liver, spleen, non-tender, soft Musculoskeletal: nl extremities to inspection, nl gait and stance Extremities: normal pulses Neurological: BRIM STITCHER II-XII intact, nl mental status, nl speech, nl strength Skin: nl turgor, No rash or lesions Lymph: nl lymph nodes Results Result Diagram: 01/12/17 0643 01/12/17 0648 Results 24 hrs Laboratory Tests Test 01/12/17 06:43 01/12/17 06:48 White Blood Count 7.2 Red Blood Count 4.29 Hemoglobin 13.6 Hematocrit 38.3 Mean Corpuscular Volume 89.3 Mean Corpuscular Hemoglobin 31.7 Mean Corpuscular Hemoglobin Concent 35.5 Red Cell Distribution Width 12.4 Platelet Count 320 Mean Platelet Volume 9.6 Neutrophils % 53.0 Lymphocytes % 30.2 Monocytes % 9.5 Eosinophils % 6.3 Basophils % 0.6 Nucleated Red Blood Cells % 0.0 Neutrophils # 3.8 Lymphocytes # 2.2 Monocytes # 0.7 Eosinophils # 0.5 Basophils # 0.0 Nucleated Red Blood Cells # 0.0 Sodium Level 126 L Potassium Level 3.8 Chloride Level 91 #L Carbon Dioxide Level 29 Anion Gap 10 # Blood Urea Nitrogen 8 Creatinine 0.75 Glucose Level 107 # Calcium Level 9.0 Medications Medications Current Medications Amlodipine Besylate (Norvasc) 5 mg DAILY PO Last administered on 01/12/17 10: 12; Admin Dose 5 MG; Start 01/11/17 at 09:00 Aspirin (Aspirin) 81 mg DAILY PO Last administered on 01/12/17 10:12; Admin Dose 81 MG; Start 01/11/17 at 09:00 Atorvastatin Calcium (Lipitor) 10 mg QHS PO Last administered on 01/11/17 21: 15; Admin Dose 10 MG; Start 01/11/17 at 21:00 Losartan Potassium 100 mg 100 mg DAILY PO Last administered on 01/12/17 10:12 ; Admin Dose 100 MG; Start 01/11/17 at 09:00 Potassium Chloride/Sodium Chloride (NS-KCl 20 Meq) 1,000 ml @ 70 mls/hr [id number] IV Last administered on 01/11/17 23:02; Admin Dose 70 MLS/HR; Start at 00:41 Ondansetron HCl (Zofran Inj) 4 mg Q6H PRN IV NAUSEA AND/OR VOMITING Last administered on 01/11/17 22:54; Admin Dose 4 MG; Start 01/11/17 at 01:00 Acetaminophen (Tylenol Tab) 650 mg Q6H PRN PO PAIN LEVEL 1-3 OR FEVER; Start at 01:00 Acetaminophen (Tylenol Supp) 650 mg Q6H PRN [place] PAIN LEVEL 1-3 OR FEVER; Start 01/11/17 at 01:00 Docusate Sodium (Colace) 100 mg Q12H PRN PO CONSTIPATION; Start 01/11/17 at 01: 00 Magnesium Hydroxide (Milk Of Mag) 30 ml DAILY PRN PO CONSTIPATION; Start at 01:00 Bisacodyl (Dulcolax) 5 mg DAILY PRN PO CONSTIPATION; Start 01/11/17 at 01:00 Pantoprazole (Protonix Tab) 40 mg DAILY@06 PO Last administered on 01/12/17 06 :20; Admin Dose 40 MG; Start 01/11/17 at 06:00 Meclizine HCl (Antivert) 25 mg BID PO Last administered on 01/12/17 10:12; Admin Dose 25 MG; Start 01/11/17 at 18:00 Nystatin (Nystatin Susp) 5 ml QID PO Last administered on 01/12/17 13:11; Admin Dose 5 ML; Start 01/11/17 at 21:00 Metoclopramide HCl (Reglan) 5 mg Q6 IV Last administered on 01/12/17 13:11; Admin Dose 5 MG; Start 01/12/17 at 00:00 JENNIFER INFANTE MD January 12, 2017 13:32
[2017-01-12] MEDS: NS + KCL 20 MEQ 1,000 ML IV SCH (15:15)
--- NOTE | 2017-01-12 15:38 | PN ---
Date/Time of Note Date/Time of Note DATE: 01/12/17 TIME: 15:37 Assessment/Plan VTE Prophylaxis VTE Prophylaxis Intervention: SCD's Lines/Catheters IV Catheter Type (from Nrsg): Peripheral IV Urinary Cath still in place: No Assessment/Plan Chief Complaint/Hosp Course 1. Abdominal pain Problems: Assessment/Plan 1. MRI recommended dr Cuevas Subjective 24 Hr Interval Summary Constitutional: improved, no complaints Respiratory: no complaints Cardiovascular: no complaints Gastrointestinal: no complaints, pain (2/10) Genitourinary: no complaints Exam/Review of Systems Vital Signs Vitals Vital Signs Date Time Temp Pulse Resp B/P Pulse Ox O2 Delivery O2 Flow Rate FiO2 01/12/17 12:58 63 01/12/17 12:10 98.0 17 143/71 97 01/11/17 00:52 Room Air Intake and Output 01/11/17 01/11/17 01/12/17 15:00 23:00 07:00 Intake Total 420 ml 650 ml 875 ml Balance 420 ml 650 ml 875 ml Exam Constitutional: alert, oriented Eyes: nl conjunctiva ENMT: nl external ears & nose Respiratory: clear to auscultation Cardiovascular: regular rate and rhythm Gastrointestinal: soft, tender Results Result Diagram: 01/12/17 0643 01/12/17 0648 Results 24 hrs Laboratory Tests Test 01/12/17 06:43 01/12/17 06:48 White Blood Count 7.2 Red Blood Count 4.29 Hemoglobin 13.6 Hematocrit 38.3 Mean Corpuscular Volume 89.3 Mean Corpuscular Hemoglobin 31.7 Mean Corpuscular Hemoglobin Concent 35.5 Red Cell Distribution Width 12.4 Platelet Count 320 Mean Platelet Volume 9.6 Neutrophils % 53.0 Lymphocytes % 30.2 Monocytes % 9.5 Eosinophils % 6.3 Basophils % 0.6 Nucleated Red Blood Cells % 0.0 Neutrophils # 3.8 Lymphocytes # 2.2 Monocytes # 0.7 Eosinophils # 0.5 Basophils # 0.0 Nucleated Red Blood Cells # 0.0 Sodium Level 126 L Potassium Level 3.8 Chloride Level 91 #L Carbon Dioxide Level 29 Anion Gap 10 # Blood Urea Nitrogen 8 Creatinine 0.75 Glucose Level 107 # Calcium Level 9.0 Medications Medications Current Medications Amlodipine Besylate (Norvasc) 5 mg DAILY PO Last administered on 01/12/17t 10: 12; Admin Dose 5 MG; Start 01/11/17 at 09:00 Aspirin (Aspirin) 81 mg DAILY PO Last administered on 01/12/17 10:12; Admin Dose 81 MG; Start 01/11/17 at 09:00 Atorvastatin Calcium (Lipitor) 10 mg QHS PO Last administered on 01/11/17 21: 15; Admin Dose 10 MG; Start 01/11/17 at 21:00 Losartan Potassium 100 mg 100 mg DAILY PO Last administered on 01/12/17 10:12 ; Admin Dose 100 MG; Start 01/11/17 at 09:00 Potassium Chloride/Sodium Chloride (NS-KCl 20 Meq) 1,000 ml @ 70 mls/hr [id number] IV Last administered on 01/12/17 15:15; Admin Dose 70 MLS/HR; Start at 00:41 Ondansetron HCl (Zofran Inj) 4 mg Q6H PRN IV NAUSEA AND/OR VOMITING Last administered on 01/11/17 22:54; Admin Dose 4 MG; Start 01/11/17 at 01:00 Acetaminophen (Tylenol Tab) 650 mg Q6H PRN PO PAIN LEVEL 1-3 OR FEVER; Start at 01:00 Acetaminophen (Tylenol Supp) 650 mg Q6H PRN [place] PAIN LEVEL 1-3 OR FEVER; Start 01/11/17 at 01:00 Docusate Sodium (Colace) 100 mg Q12H PRN PO CONSTIPATION; Start 01/11/17 at 01: 00 Magnesium Hydroxide (Milk Of Mag) 30 ml DAILY PRN PO CONSTIPATION; Start at 01:00 Bisacodyl (Dulcolax) 5 mg DAILY PRN PO CONSTIPATION; Start 01/11/17 at 01:00 Pantoprazole (Protonix Tab) 40 mg DAILY@06 PO Last administered on 01/12/17 06 :20; Admin Dose 40 MG; Start 01/11/17 at 06:00 Meclizine HCl (Antivert) 25 mg BID PO Last administered on 01/12/17 10:12; Admin Dose 25 MG; Start 01/11/17 at 18:00 Metoclopramide HCl (Reglan) 5 mg Q6 IV Last administered on 01/12/17 13:11; Admin Dose 5 MG; Start 01/12/17 at 00:00 TAMAR GRUBER January 12, 2017 15:38
[2017-01-12] MEDS: ATORVASTATIN 10 MG TAB PO SCH (20:33)
[2017-01-13] VITALS (12 sets, daily range): BP systolic 124–198; BP diastolic 57–83; PULSE 63–111; RESP 16–20
[2017-01-13] MEDS: PANTOPRAZOLE (EC) 40 MG TAB PO SCH (05:08)
[2017-01-13] MEDS: METOCLOPRAMIDE 10 MG INJ IV SCH ×5 (05:08→23:39)
[2017-01-13] MEDS: NS + KCL 20 MEQ 1,000 ML IV SCH ×3 (05:14→23:39)
[2017-01-13] MEDS: CREON (12k-38k-60k) 1 CAP PO SCH ×4 (08:00→17:27)
[2017-01-13] MEDS: MECLIZINE 25 MG TAB PO SCH ×2 (09:00→20:28)
[2017-01-13] MEDS: AMLODIPINE 5 MG TAB PO SCH (12:24)
[2017-01-13] MEDS: LOSARTAN 50 MG TAB PO SCH (12:24)
--- NOTE | 2017-01-13 14:25 | CONS ---
Date/Time of Note Date/Time of Note DATE: 01/13/17 TIME: 14:24 Assessment/Plan Assessment/Plan Additional Assessment/Plan IMPRESSION: 1. Abdominal pain, intermittent with nausea, vomiting. Rule out bile duct stone. Rule out diabetic gastroparesis. Rule out diabetes. Rule out peptic ulcer disease. 2. Hyponatremia. 3. Gout. 4. Diabetes mellitus. 5. Hypertension. PLAN: At this point is to start the patient empirically on Reglan. Continue PPI. CT scan has been ordered. We will review it. If it is negative, we will get MRCP done. MRCP today if negative then we will do EGD. MRCP report is still pending Consultation Date/Type/Reason Admit Date/Time January 11, 2017 at 00:25 24 HR Interval Summary Constitutional: improved, no complaints Exam/Review of Systems Vital Signs Vitals Vital Signs Date Time Temp Pulse Resp B/P Pulse Ox O2 Delivery O2 Flow Rate FiO2 01/13/17 12:07 74 01/13/17 11:27 97.9 17 198/83 97 01/11/17 00:52 Room Air Intake and Output 01/12/17 01/12/17 01/13/17 15:00 23:00 07:00 Intake Total 1555 ml 1240 ml Balance 1555 ml 1240 ml Exam Constitutional: alert, oriented, well developed Psych: nl mood/affect, no complaints Head: atraumatic, normocephalic Eyes: EOMI, PERRL, nl conjunctiva, nl lids, nl sclera ENMT: nl external ears & nose, nl lips & teeth, nl nasal mucosa & septum Neck: non-tender, supple Respiratory: clear to auscultation, normal air movement Cardiovascular: nl pulses, regular rate and rhythm Gastrointestinal: nl liver, spleen, non-tender, soft Musculoskeletal: nl extremities to inspection, nl gait and stance Extremities: normal pulses Neurological: TOPOGRAPHIC COMPUTATOR II-XII intact, nl mental status, nl speech, nl strength Skin: nl turgor, No rash or lesions Lymph: nl lymph nodes Results Result Diagram: 01/12/17 0643 01/12/17 0648 Medications Medications Current Medications Amlodipine Besylate (Norvasc) 5 mg DAILY PO Last administered on 01/13/17t 12: 24; Admin Dose 5 MG; Start 01/11/17 at 09:00 Aspirin (Aspirin) 81 mg DAILY PO Last administered on 01/12/17 10:12; Admin Dose 81 MG; Start 01/11/17 at 09:00 Atorvastatin Calcium (Lipitor) 10 mg QHS PO Last administered on 01/12/17 20: 33; Admin Dose 10 MG; Start 01/11/17 at 21:00 Losartan Potassium 100 mg 100 mg DAILY PO Last administered on 01/13/17 12:24 ; Admin Dose 100 MG; Start 01/11/17 at 09:00 Potassium Chloride/Sodium Chloride (NS-KCl 20 Meq) 1,000 ml @ 70 mls/hr [id number] IV Last administered on 01/13/17 05:14; Admin Dose 70 MLS/HR; Start at 00:41 Ondansetron HCl (Zofran Inj) 4 mg Q6H PRN IV NAUSEA AND/OR VOMITING Last administered on 01/11/17 22:54; Admin Dose 4 MG; Start 01/11/17 at 01:00 Acetaminophen (Tylenol Tab) 650 mg Q6H PRN PO PAIN LEVEL 1-3 OR FEVER; Start at 01:00 Acetaminophen (Tylenol Supp) 650 mg Q6H PRN [place] PAIN LEVEL 1-3 OR FEVER; Start 01/11/17 at 01:00 Docusate Sodium (Colace) 100 mg Q12H PRN PO CONSTIPATION; Start 01/11/17 at 01: 00 Magnesium Hydroxide (Milk Of Mag) 30 ml DAILY PRN PO CONSTIPATION; Start at 01:00 Bisacodyl (Dulcolax) 5 mg DAILY PRN PO CONSTIPATION; Start 01/11/17 at 01:00 Pantoprazole (Protonix Tab) 40 mg DAILY@06 PO Last administered on 01/13/17 05 :08; Admin Dose 40 MG; Start 01/11/17 at 06:00 Meclizine HCl (Antivert) 25 mg BID PO Last administered on 01/12/17 20:33; Admin Dose 25 MG; Start 01/11/17 at 18:00 Metoclopramide HCl (Reglan) 5 mg Q6 IV Last administered on 01/13/17 05:08; Admin Dose 5 MG; Start 01/12/17 at 00:00 JENNIFER INFANTE MD January 13, 2017 14:25
--- NOTE | 2017-01-13 17:06 | PN ---
Date/Time of Note Date/Time of Note DATE: 01/13/17 TIME: 17:05 Assessment/Plan VTE Prophylaxis VTE Prophylaxis Intervention: other Lines/Catheters IV [facility] Type [facility]from [facility] Peripheral IV Urinary Cath still in place: No Assessment/Plan Chief Complaint/Hosp Course hyponatremia htn gastroparesis plan bp meds Problems: Subjective 24 Hr Interval Summary Respiratory: no complaints Cardiovascular: no complaints Exam/Review of Systems Vital Signs Vitals Vital Signs Date Time Temp Pulse Resp B/P Pulse Ox O2 Delivery O2 Flow Rate FiO2 01/13/17 16:13 80 01/13/17 15:57 97.8 17 191/83 94 01/11/17 00:52 Room Air Intake and Output 01/12/17 01/12/17 01/13/17 15:00 23:00 07:00 Intake Total 1555 ml 1240 ml Balance 1555 ml 1240 ml Exam Respiratory: clear to auscultation Cardiovascular: regular rate and rhythm Gastrointestinal: soft Musculoskeletal: nl extremities to inspection Results Result Diagram: 01/12/17 0643 01/12/17 0648 Medications Medications Current Medications Amlodipine Besylate (Norvasc) 5 mg DAILY PO Last administered on 01/13/17 12: 24; Admin Dose 5 MG; Start 01/11/17 at 09:00 Aspirin (Aspirin) 81 mg DAILY PO Last administered on 01/12/17 10:12; Admin Dose 81 MG; Start 01/11/17 at 09:00 Atorvastatin Calcium (Lipitor) 10 mg QHS PO Last administered on 01/12/17 20: 33; Admin Dose 10 MG; Start 01/11/17 at 21:00 Losartan Potassium 100 mg 100 mg DAILY PO Last administered on 01/13/17 12:24 ; Admin Dose 100 MG; Start 01/11/17 at 09:00 Potassium Chloride/Sodium Chloride (NS-KCl 20 Meq) 1,000 ml @ 70 mls/hr [id number] IV Last administered on 01/13/17 05:14; Admin Dose 70 MLS/HR; Start at 00:41 Ondansetron HCl (Zofran Inj) 4 mg Q6H PRN IV NAUSEA AND/OR VOMITING Last administered on 01/11/17 22:54; Admin Dose 4 MG; Start 01/11/17 at 01:00 Acetaminophen (Tylenol Tab) 650 mg Q6H PRN PO PAIN LEVEL 1-3 OR FEVER; Start at 01:00 Acetaminophen (Tylenol Supp) 650 mg Q6H PRN [place] PAIN LEVEL 1-3 OR FEVER; Start 01/11/17 at 01:00 Docusate Sodium (Colace) 100 mg Q12H PRN PO CONSTIPATION; Start 01/11/17 at 01: 00 Magnesium Hydroxide (Milk Of Mag) 30 ml DAILY PRN PO CONSTIPATION; Start at 01:00 Bisacodyl (Dulcolax) 5 mg DAILY PRN PO CONSTIPATION; Start 01/11/17 at 01:00 Pantoprazole (Protonix Tab) 40 mg DAILY@06 PO Last administered on 01/13/17 05 :08; Admin Dose 40 MG; Start 01/11/17 at 06:00 Meclizine HCl (Antivert) 25 mg BID PO Last administered on 01/12/17 20:33; Admin Dose 25 MG; Start 01/11/17 at 18:00 Metoclopramide HCl (Reglan) 5 mg Q6 IV Last administered on 01/13/17 05:08; Admin Dose 5 MG; Start 01/12/17 at 00:00 KYLE CHUA MD January 13, 2017 17:06
[2017-01-13] MEDS: ASPIRIN 81 MG TAB PO SCH (17:21)
[2017-01-13] MEDS: ATORVASTATIN 10 MG TAB PO SCH (20:28)
[2017-01-14] VITALS (12 sets, daily range): BP systolic 104–140; BP diastolic 55–68; PULSE 59–81; RESP 16–20
[2017-01-14] MEDS: PANTOPRAZOLE (EC) 40 MG TAB PO SCH (05:46)
[2017-01-14] MEDS: METOCLOPRAMIDE 10 MG INJ IV SCH ×4 (05:47→23:55)
[2017-01-14 07:02] LABS: ALBUMIN 3.4 g/dl (3.3-4.9); ALBUMIN/GLOBULIN RATIO 1.09; BILIRUBIN,INDIRECT 0.1 mg/dl (0-1.1); BILIRUBIN,TOTAL 0.1 mg/dl (0.2-1.3); CALCIUM 8.8 mg/dl (8.4-10.2); CREATININE 0.8 mg/dl (0.44-1.00); POTASSIUM 4.4 mmol/L (3.5-5.1); TOTAL PROTEIN 6.5 g/dl (6.1-8.1)
[2017-01-14] MEDS: CREON (12k-38k-60k) 1 CAP PO SCH ×3 (08:00→17:39)
[2017-01-14] MEDS: ASPIRIN 81 MG TAB PO SCH (09:41)
[2017-01-14] MEDS: LOSARTAN 50 MG TAB PO SCH (09:43)
[2017-01-14] MEDS: AMLODIPINE 5 MG TAB PO SCH (09:43)
[2017-01-14] MEDS: MECLIZINE 25 MG TAB PO SCH ×2 (09:43→20:37)
[2017-01-14] MEDS: NS + KCL 20 MEQ 1,000 ML IV SCH (17:44)
--- NOTE | 2017-01-14 18:32 | PN ---
Date/Time of Note Date/Time of Note DATE: 01/14/17 TIME: 18:31 Assessment/Plan VTE Prophylaxis VTE Prophylaxis Intervention: other Lines/Catheters IV Catheter Type (from Nrs): Peripheral IV Urinary Cath still in place: No Assessment/Plan Chief Complaint/Hosp Course hyponatremia BETTER htn gastroparesis ABD PAIN plan bp meds CK MRI PER GI Problems: Subjective 24 Hr Interval Summary ENT: no complaints Respiratory: no complaints Cardiovascular: no complaints Exam/Review of Systems Vital Signs Vitals Vital Signs Date Time Temp Pulse Resp B/P Pulse Ox O2 Delivery O2 Flow Rate FiO2 01/14/17 16:03 61 01/14/17 15:33 97.6 18 128/60 94 01/14/17 04:00 Room Air Intake and Output 01/13/17 01/13/17 01/14/17 15:00 23:00 07:00 Intake Total 480 ml 1575 ml Balance 480 ml 1575 ml Exam Neck: supple Respiratory: clear to auscultation Cardiovascular: regular rate and rhythm Gastrointestinal: bowel sounds (+), soft Results Result Diagram: 01/12/17 0643 01/14/17 0622 Results 24 hrs Laboratory Tests Test 01/14/17 06:22 Sodium Level 135 Potassium Level 4.4 Chloride Level 103 # Carbon Dioxide Level 27 Anion Gap 9 Blood Urea Nitrogen 12 Creatinine 0.80 Glucose Level 129 Calcium Level 8.8 Total Bilirubin 0.1 L Direct Bilirubin 0.00 Indirect Bilirubin 0.1 Aspartate Amino Transf (AST/SGOT) 27 Alanine Aminotransferase (ALT/SGPT) 43 Alkaline Phosphatase 86 Total Protein 6.5 Albumin 3.4 Globulin 3.10 Albumin/Globulin Ratio 1.09 Medications Medications Current Medications Amlodipine Besylate (Norvasc) 5 mg DAILY PO Last administered on 01/14/17 09: 43; Admin Dose 5 MG; Start 01/11/17 at 09:00 Aspirin (Aspirin) 81 mg DAILY PO Last administered on 01/14/17 09:41; Admin Dose 81 MG; Start 01/11/17 at 09:00 Atorvastatin Calcium (Lipitor) 10 mg QHS PO Last administered on 01/13/17 20: 28; Admin Dose 10 MG; Start 01/11/17 at 21:00 Losartan Potassium 100 mg 100 mg DAILY PO Last administered on 01/14/17 09:43 ; Admin Dose 100 MG; Start 01/11/17 at 09:00 Potassium Chloride/Sodium Chloride (NS-KCl 20 Meq) 1,000 ml @ 70 mls/hr [id number] IV Last administered on 01/14/17 17:44; Admin Dose 70 MLS/HR; Start at 00:41 Ondansetron HCl (Zofran Inj) 4 mg Q6H PRN IV NAUSEA AND/OR VOMITING Last administered on 01/11/17 22:54; Admin Dose 4 MG; Start 01/11/17 at 01:00 Acetaminophen (Tylenol Tab) 650 mg Q6H PRN PO PAIN LEVEL 1-3 OR FEVER; Start at 01:00 Acetaminophen (Tylenol Supp) 650 mg Q6H PRN [place] PAIN LEVEL 1-3 OR FEVER; Start 01/11/17 at 01:00 Docusate Sodium (Colace) 100 mg Q12H PRN PO CONSTIPATION; Start 01/11/17 at 01: 00 Magnesium Hydroxide (Milk Of Mag) 30 ml DAILY PRN PO CONSTIPATION; Start at 01:00 Bisacodyl (Dulcolax) 5 mg DAILY PRN PO CONSTIPATION; Start 01/11/17 at 01:00 Pantoprazole (Protonix Tab) 40 mg DAILY@06 PO Last administered on 01/14/17 05 :46; Admin Dose 40 MG; Start 01/11/17 at 06:00 Meclizine HCl (Antivert) 25 mg BID PO Last administered on 01/14/17 09:43; Admin Dose 25 MG; Start 01/11/17 at 18:00 Metoclopramide HCl (Reglan) 5 mg Q6 IV Last administered on 01/14/17 17:37; Admin Dose 5 MG; Start 01/12/17 at 00:00 Clonidine (Catapres) 0.1 mg TID PO Last administered on 01/14/17 09:42; Admin Dose 0.1 MG; Start 01/13/17 at 21:00 KYLE CHUA MD January 14, 2017 18:32
--- NOTE | 2017-01-14 19:00 | CONS ---
Date/Time of Note Date/Time of Note DATE: 01/14/17 TIME: 18:58 Assessment/Plan Assessment/Plan Additional Assessment/Plan Additional Assessment/Plan IMPRESSION: 1. Abdominal pain, intermittent with nausea, vomiting. Rule out bile duct stone. Rule out diabetic gastroparesis. Rule out diabetes. Rule out peptic ulcer disease. 2. Hyponatremia. 3. Gout. 4. Diabetes mellitus. 5. Hypertension. PLAN: At this point is to start the patient empirically on Reglan. Continue PPI. CT scan has been ordered. We will review it. If it is negative, we will get MRCP done. MRCP today if negative then we will do EGD. MRCP report is still pending.just done Consultation Date/Type/Reason Admit Date/Time January 11, 2017 at 00:25 24 HR Interval Summary Free Text/Dictation abdominal pain better Exam/Review of Systems Vital Signs Vitals Vital Signs Date Time Temp Pulse Resp B/P Pulse Ox O2 Delivery O2 Flow Rate FiO2 01/14/17 16:03 61 01/14/17 15:33 97.6 18 128/60 94 01/14/17 04:00 Room Air Intake and Output 01/13/17 01/13/17 01/14/17 15:00 23:00 07:00 Intake Total 480 ml 1575 ml Balance 480 ml 1575 ml Exam Constitutional: alert, oriented, well developed Psych: nl mood/affect, no complaints Head: atraumatic, normocephalic Eyes: EOMI, PERRL, nl conjunctiva, nl lids, nl sclera ENMT: nl external ears & nose, nl lips & teeth, nl nasal mucosa & septum Neck: non-tender, supple Respiratory: clear to auscultation, normal air movement Cardiovascular: nl pulses, regular rate and rhythm Gastrointestinal: nl liver, spleen, non-tender, soft Musculoskeletal: nl extremities to inspection, nl gait and stance Extremities: normal pulses Neurological: [employer]ILER[employer]KER SHIP II-XII intact, nl mental status, nl speech, nl strength Skin: nl turgor, No rash or lesions Lymph: nl lymph nodes Results Result Diagram: 01/12/17 0643 01/14/17 0622 Results 24 hrs Laboratory Tests Test 01/14/17 06:22 Sodium Level 135 Potassium Level 4.4 Chloride Level 103 # Carbon Dioxide Level 27 Anion Gap 9 Blood Urea Nitrogen 12 Creatinine 0.80 Glucose Level 129 Calcium Level 8.8 Total Bilirubin 0.1 L Direct Bilirubin 0.00 Indirect Bilirubin 0.1 Aspartate Amino Transf (AST/SGOT) 27 Alanine Aminotransferase (ALT/SGPT) 43 Alkaline Phosphatase 86 Total Protein 6.5 Albumin 3.4 Globulin 3.10 Albumin/Globulin Ratio 1.09 Medications Medications Current Medications Amlodipine Besylate (Norvasc) 5 mg DAILY PO Last administered on 01/14/17 09: 43; Admin Dose 5 MG; Start 01/11/17 at 09:00 Aspirin (Aspirin) 81 mg DAILY PO Last administered on 01/14/17 09:41; Admin Dose 81 MG; Start 01/11/17 at 09:00 Atorvastatin Calcium (Lipitor) 10 mg QHS PO Last administered on 01/13/17 20: 28; Admin Dose 10 MG; Start 01/11/17 at 21:00 Losartan Potassium 100 mg 100 mg DAILY PO Last administered on 01/14/17 09:43 ; Admin Dose 100 MG; Start 01/11/17 at 09:00 Potassium Chloride/Sodium Chloride (NS-KCl 20 Meq) 1,000 ml @ 70 mls/hr [id number] IV Last administered on 01/14/17 17:44; Admin Dose 70 MLS/HR; Start at 00:41 Ondansetron HCl (Zofran Inj) 4 mg Q6H PRN IV NAUSEA AND/OR VOMITING Last administered on 01/11/17 22:54; Admin Dose 4 MG; Start 01/11/17 at 01:00 Acetaminophen (Tylenol Tab) 650 mg Q6H PRN PO PAIN LEVEL 1-3 OR FEVER; Start at 01:00 Acetaminophen (Tylenol Supp) 650 mg Q6H PRN TN PAIN LEVEL 1-3 OR FEVER; Start 01/11/17 at 01:00 Docusate Sodium (Colace) 100 mg Q12H PRN PO CONSTIPATION; Start 01/11/17 at 01: 00 Magnesium Hydroxide (Milk Of Mag) 30 ml DAILY PRN PO CONSTIPATION; Start at 01:00 Bisacodyl (Dulcolax) 5 mg DAILY PRN PO CONSTIPATION; Start 01/11/17 at 01:00 Pantoprazole (Protonix Tab) 40 mg DAILY@06 PO Last administered on 01/14/17 05 :46; Admin Dose 40 MG; Start 01/11/17 at 06:00 Meclizine HCl (Antivert) 25 mg BID PO Last administered on 01/14/17 09:43; Admin Dose 25 MG; Start 01/11/17 at 18:00 Metoclopramide HCl (Reglan) 5 mg Q6 IV Last administered on 01/14/17 17:37; Admin Dose 5 MG; Start 01/12/17 at 00:00 Clonidine (Catapres) 0.1 mg TID PO Last administered on 01/14/17 09:42; Admin Dose 0.1 MG; Start 01/13/17 at 21:00 JENNIFER INFANTE MD January 14, 2017 18:59
--- NOTE | 2017-01-14 20:01 | RADRPT ---
PROCEDURE: MRCP CLINICAL INDICATION: Abdominal pain TECHNIQUE: MRCP was performed on the a high-resolution, high Estella field strength scanner. Patien t was examined without contrast. 3-D coronal rotating MIP images of the biliary tree are available for review. COMPARISON: CT of the abdomen and pelvis from 01/11/2017 FINDINGS: The liver is normal in size and signal intensity. No focal liver lesions is seen. The gallbladder has been removed. Mild international hepatic biliary dilatation is seen. The common bile duct measu res 7 mm. No definite filling defect in the common bile duct is seen. The spleen, pancreas, adrenal glands and kidneys normal in size and signal intensity. The kidneys a re normal in size and contour and are without evidence of hydronephrosis. No abnormally enlarged lym ph nodes or fluid collections are seen. IMPRESSION: 1. Status post cholecystectomy. 2. Mild intrahepatic and extrahepatic biliary dilatation without evidence of a definite filling def ect on distal common bile duct. The findings may be secondary to physiologic biliary dilatation. T he possibility of a past common bile duct stone cannot be excluded. RPTAT: HPNM Physician Zachary Date Time Electronically viewed and signed by Physician Zachary on 01/14/2017 20:01 /
[2017-01-14] MEDS: ATORVASTATIN 10 MG TAB PO SCH (20:37)
[2017-01-15] VITALS (11 sets, daily range): BP systolic 98–170; BP diastolic 53–74; PULSE 57–68; RESP 16–20
[2017-01-15] MEDS: PANTOPRAZOLE (EC) 40 MG TAB PO SCH (06:12)
[2017-01-15] MEDS: METOCLOPRAMIDE 10 MG INJ IV SCH ×3 (06:12→18:08)
[2017-01-15] MEDS: NS + KCL 20 MEQ 1,000 ML IV SCH (06:14)
[2017-01-15 06:52] LABS: ALBUMIN 3.5 g/dl (3.3-4.9); BILIRUBIN,INDIRECT 0.1 mg/dl (0-1.1); BILIRUBIN,TOTAL 0.1 mg/dl (0.2-1.3); CALCIUM 8.9 mg/dl (8.4-10.2); CREATININE 0.67 mg/dl (0.44-1.00); POTASSIUM 4.3 mmol/L (3.5-5.1)
[2017-01-15] MEDS: CREON (12k-38k-60k) 1 CAP PO SCH ×3 (08:36→18:08)
[2017-01-15] MEDS: LOSARTAN 50 MG TAB PO SCH (08:37)
[2017-01-15] MEDS: ASPIRIN 81 MG TAB PO SCH (08:37)
[2017-01-15] MEDS: MECLIZINE 25 MG TAB PO SCH (08:37)
[2017-01-15] MEDS: AMLODIPINE 5 MG TAB PO SCH (08:37)
--- NOTE | 2017-01-15 11:42 | CONS ---
Date/Time of Note Date/Time of Note DATE: 01/15/17 TIME: 11:42 Assessment/Plan Assessment/Plan Additional Assessment/Plan Additional Assessment/Plan Additional Assessment/Plan IMPRESSION: 1. Abdominal pain, intermittent with nausea, vomiting. Rule out bile duct stone. Rule out diabetic gastroparesis. Rule out diabetes. Rule out peptic ulcer disease. 2. Hyponatremia. 3. Gout. 4. Diabetes mellitus. 5. Hypertension. PLAN: At this point is to start the patient empirically on Reglan. Continue PPI. CT scan has been ordered. We will review it. If it is negative, we will get MRCP done. MRCP today if negative then we will do EGD. MRCP report mild dilatation of intrahepatic and extrahepatic bile duct but no evidence of obstruction. Consultation Date/Type/Reason Admit Date/Time January 11, 2017 at 00:25 24 HR Interval Summary Constitutional: improved, no complaints Exam/Review of Systems Vital Signs Vitals Vital Signs Date Time Temp Pulse Resp B/P Pulse Ox O2 Delivery O2 Flow Rate FiO2 01/15/17 10:39 139/63 01/15/17 08:08 60 01/15/17 07:33 97.8 17 99 01/15/17 04:45 Room Air Intake and Output 01/14/17 01/14/17 01/15/17 15:00 23:00 07:00 Intake Total 1230 ml 690 ml Balance 1230 ml 690 ml Exam Constitutional: alert, oriented, well developed Psych: nl mood/affect, no complaints Head: atraumatic, normocephalic Eyes: EOMI, PERRL, nl conjunctiva, nl lids, nl sclera ENMT: nl external ears & nose, nl lips & teeth, nl nasal mucosa & septum Neck: non-tender, supple Respiratory: clear to auscultation, normal air movement Cardiovascular: nl pulses, regular rate and rhythm Gastrointestinal: nl liver, spleen, non-tender, soft Musculoskeletal: nl extremities to inspection, nl gait and stance Extremities: normal pulses Neurological: BANK ANALYST II-XII intact, nl mental status, nl speech, nl strength Skin: nl turgor, No rash or lesions Lymph: nl lymph nodes Results Result Diagram: 01/12/17 0643 01/15/17 0545 Results 24 hrs Laboratory Tests Test 01/15/17 05:45 Sodium Level 136 Potassium Level 4.3 Chloride Level 103 Carbon Dioxide Level 27 Anion Gap 10 Blood Urea Nitrogen 9 Creatinine 0.67 Glucose Level 125 Calcium Level 8.9 Total Bilirubin 0.1 L Direct Bilirubin 0.00 Indirect Bilirubin 0.1 Aspartate Amino Transf (AST/SGOT) 30 Alanine Aminotransferase (ALT/SGPT) 42 Alkaline Phosphatase 82 Total Protein 7.0 Albumin 3.5 Globulin 3.50 H Albumin/Globulin Ratio 1.00 Medications Medications Current Medications Amlodipine Besylate (Norvasc) 5 mg DAILY PO Last administered on 01/15/17 08: 37; Admin Dose 5 MG; Start 01/11/17 at 09:00 Aspirin (Aspirin) 81 mg DAILY PO Last administered on 01/15/17 08:37; Admin Dose 81 MG; Start 01/11/17 at 09:00 Atorvastatin Calcium (Lipitor) 10 mg QHS PO Last administered on 01/14/17 20: 37; Admin Dose 10 MG; Start 01/11/17 at 21:00 Losartan Potassium 100 mg 100 mg DAILY PO Last administered on 01/15/17 08:37 ; Admin Dose 100 MG; Start 01/11/17 at 09:00 Potassium Chloride/Sodium Chloride (NS-KCl 20 Meq) 1,000 ml @ 70 mls/hr [id number] IV Last administered on 01/15/17 06:14; Admin Dose 70 MLS/HR; Start at 00:41 Ondansetron HCl (Zofran Inj) 4 mg Q6H PRN IV NAUSEA AND/OR VOMITING Last administered on 01/11/17 22:54; Admin Dose 4 MG; Start 01/11/17 at 01:00 Acetaminophen (Tylenol Tab) 650 mg Q6H PRN PO PAIN LEVEL 1-3 OR FEVER; Start at 01:00 Acetaminophen (Tylenol Supp) 650 mg Q6H PRN [place] PAIN LEVEL 1-3 OR FEVER; Start 01/11/17 at 01:00 Docusate Sodium (Colace) 100 mg Q12H PRN PO CONSTIPATION; Start 01/11/17 at 01: 00 Magnesium Hydroxide (Milk Of Mag) 30 ml DAILY PRN PO CONSTIPATION; Start at 01:00 Bisacodyl (Dulcolax) 5 mg DAILY PRN PO CONSTIPATION; Start 01/11/17 at 01:00 Pantoprazole (Protonix Tab) 40 mg DAILY@06 PO Last administered on 01/15/17 06 :12; Admin Dose 40 MG; Start 01/11/17 at 06:00 Meclizine HCl (Antivert) 25 mg BID PO Last administered on 01/15/17 08:37; Admin Dose 25 MG; Start 01/11/17 at 18:00 Metoclopramide HCl (Reglan) 5 mg Q6 IV Last administered on 01/15/17 06:12; Admin Dose 5 MG; Start 01/12/17 at 00:00 Clonidine (Catapres) 0.1 mg TID PO Last administered on 01/15/17 08:37; Admin Dose 0.1 MG; Start 01/13/17 at 21:00 JENNIFER INFANTE MD January 15, 2017 11:42
--- NOTE | 2017-01-15 18:26 | PDOCDIS ---
Discharge Instructions CONDITION Patient Condition: Stable HOME CARE INSTRUCTIONS: Special Diet: Cardiac ACTIVITY: Activity Restrictions: Slowly Increase Activity FOLLOW UP/APPOINTMENTS Appointments f/u dr collins 1 wk KYLE CHUA MD January 15, 2017 18:26
[2017-01-15] MEDS ORDERED: PANT40TA4 PO (18:29)
[2017-01-15] MEDS ORDERED: DOCU-216 PO (18:29)
[2017-01-15] MEDS ORDERED: BISA5TAB6 PO (18:29)
--- NOTE | 2017-01-15 19:03 | QN ---
Documentation Comment [id number] KYLE CHUA MD January 15, 2017 19:02
--- NOTE | 2017-01-16 03:08 | DS ---
DATE OF ADMISSION: 01/11/2017 DATE OF DISCHARGE: 01/15/2017 HOSPITAL COURSE: The patient was admitted with the diagnosis of abdominal pain, hypertension, dysli pidemia, history of gout. The patient has hyponatremia, received IV fluid. The patient also abdomi nal pain, had CT of the abdomen and pelvis ultrasound which shows atherosclerosis, chronic diverticu losis. The patient was seen by Dr. Cuevas and had MRI that shows status post cholecystectomy, mild intrahepatic and extrahepatic biliary dilatation. The patient was eating and drinking okay and was cleared by the performance test consultant to be discharged. DISCHARGE DIAGNOSES: The patient has 1. Abdominal pain. 2. Dyspepsia. 3. Hyponatremia, resolved. 4. History of gout. 5. Diabetes mellitus. 6. Hypertension. 7. The patient has a history of cholecystectomy. DISCHARGE MEDICATIONS: To continue on 1. Bisacodyl. 2. Docusate sodium. 3. Protonix. 4. Amlodipine. 5. Aspirin. 6. Atenolol. 7. Chlorthalidone. 8. Atorvastatin. 9. Glipizide. 10. Metformin. 11. Creon. 12. Losartan. The patient is to have a BMP checked as an outpatient by PCP. DISPOSITION: The patient is stable at the time of discharge. Dictated By: KYLE APONTE/JULIO C Conf#: [id number] DID#: [id number]
== END 2017-01-15 19:18 | disposition home or self-care (01) | DRG 74 ==
LOC: E/R 21:53 → MS4 01-11 00:25
PROVIDERS: ADMIT Internal Medicine Nephrology; ATTEND Internal Medicine Nephrology
DX: E11.43 Type 2 diabetes mellitus with diabetic autonomic (poly)neuropathy (principal); E87.1 Hypo-osmolality and hyponatremia; I10 Essential (primary) hypertension; K31.84 Gastroparesis; E78.5 Hyperlipidemia, unspecified; M10.9 Gout, unspecified
CPT/HCPCS: 36415; 74176; 74181; 80048; 80053; 81003; 82962; 83690; 83930; 83935; 84300; 85025; 87086; 96365; 96375; C9113; J0696; J2270; J2405; J2765; J3480

== ENCOUNTER 2017-12-12 16:41 | Emergency (ER) | END 2017-12-12 22:36 | disposition home or self-care (01) ==

== ENCOUNTER 2018-02-10 22:40 | Emergency (ER) | END 2018-02-11 04:33 | disposition home or self-care (01) ==

== ENCOUNTER 2018-11-12 02:59 | Observation (INO) | payer MEDICARE, OTHER ==
[~2018-11-12] VITALS: Ht 152.4 cm; Wt 60.6 kg
[~2018-11-12 02:59] MED LIST changes: +ALLO300T2 PO; +CEPH-443 PO; +CLON-379 PO; -D-ME473S2 PO; -LOSA100T7 PO; +MAG355OR14 PO; -OMEP20CA16 PO; +OMEP40CA6 PO; -ONDA4TAB14 PO; +TELM40TA3 PO
[2018-11-12] MEDS ORDERED: PANT40TA4 PO (07:21)
[2018-11-12] MEDS ORDERED: LIPA1CAP45 PO (07:22)
--- NOTE | 2018-11-12 07:43 | ERD ---
ER Documentation Chief Complaint Chief Complaint EPIGASTRIC PAIN X'S 10 DAYS HPI 78-year-old female presents the emergency department complaining of epigastric abdominal pain. Patient states that she has a history of chronic abdominal pain although this is gotten worse over the last 10 days. Last time she had her abdominal pain was related to her gallbladder, which has subsequently been removed. Currently, patient presents with a severe, unrelenting epigastric abdominal pain which does not radiate. It is nonexertional associated with nausea with no emesis. She reports no fevers, chills, urinary symptoms. She reports no co nstipation or diarrhea. She also complains of no palpitations, shortness of breath or PND. ROS All systems reviewed and are negative except as per history of present illness. Medications Home Meds Reported Medications Ewpyyw-Tjttiopa-Rkfwtqs* (Donny BELL* 36,000) 36,000 L-114,000-180,000 Unit Capsule., 1 TAB PO DAILY 11/12/18 Pantoprazole* (Pantoprazole*) 40 Mg Tablet., 40 MG PO AC BREAKFAST, TAB 11/12/18 Telmisartan (Telmisartan) 40 Mg Tablet, 40 MG PO DAILY, TAB 12/12/17 Allopurinol* (Allopurinol*) 300 Mg Tablet, 300 MG PO DAILY, TAB 12/12/17 Glipizide/Metformin HCl (Glipizide-Metformin 2.5-500 mg) 1 Each Tablet, 1 EACH PO BID, TAB 12/12/17 Atenolol/Chlorthalidone (Atenolol-Chlorthalidone 50-25) 1 Each Tablet, 1 EACH PO DAILY, TAB 12/12/17 Amlodipine Besylate* (Norvasc*) 5 Mg Tablet, 5 MG PO DAILY, TAB 12/12/17 Discontinued Scripts Clonidine Hcl* (Clonidine Hcl*) 0.1 Mg Tab, 0.1 MG PO Q6 PRN for ELEVATED SYSTOLIC BP, #14 TAB Prov:RICKIE OSBORN 02/11/18 Omeprazole* (Omeprazole*) 40 Mg Capsule., 40 MG PO DAILY, #30 CAP Prov:MANJU NICHOLE MD 12/12/17 Cephalexin* (Keflex*) 500 Mg Capsule, 500 MG PO QID for 5 Days, CAP Prov:AMNJU NICHOLE MD 12/12/17 Mag Hydrox/Al Hydrox/Simeth (Maalox Advanced Suspension) 355 Ml Oral.susp, 2 TSP PO TID for PAIN AND/OR INFLAMMATION, #24 OZ Prov:MANJU NICHOLE MD 12/12/17 Allergies Allergies: Coded Allergies: No Known Allergy (Unverified , 11/12/18) PMhx/Soc History of Surgery: Yes (Cholecystectomy) Anesthesia Reaction: No Hx Neurological Disorder: No Hx Respiratory Disorders: No Hx Cardiac Disorders: Yes (HTN, HLD) Hx Psychiatric Problems: No Hx Miscellaneous Medical Probl: Yes (Cholecystectomy, DM, Gout) Hx Alcohol Use: No Hx Substance Use: No Hx Tobacco Use: No Smoking Status: Never smoker FmHx Noncontributory for chief complaint Physical Exam Vitals Vital Signs Date Temp Pulse Resp B/P (MAP) Pulse Ox O2 O2 Flow FiO2 Time Delivery Rate 11/12/18 96.7 130 18 168/106 97 03:01 (126) Physical Exam GENERAL: The patient is well developed and appropriate for usual state of health in no apparent distress HEENT: Pupils equal, round, and reactive to light. EOMI. There is no scleral icterus. NECK: C-spine is soft and supple, there is no meningismus. There is no cervical lymphadenopathy. LUNGS: Clear to auscultation bilaterally. There are no rales, wheezes or rhonchi. HEART: Irregularly irregular rate and rhythm with no murmurs rubs or gallops ABDOMEN: Soft, non-tender, non-distended. There are bowel sounds in all four quadrants. No rebound or guarding. EXTREMITIES: There is no peripheral cyanosis or edema. No focal swelling or erythema. NEURO: The patient moves all four extremities with 5/5 strength. Cranial nerves II - XII are intact. Normal gait. Alert and oriented SKIN: There is no apparent rash or petechiae. HEME/LYMPHATIC: There is no evidence of excessive bruising or lymphedema. PSYCHIATRIC: The patient does not appear anxious or depressed. Result Diagram: 11/12/18 0645 11/12/18 0645 Results 24 hrs Laboratory Tests Test 11/12/18 06:45 11/12/18 06:46 White Blood Count 7.1 10^3/ul Red Blood Count 5.01 10^6/ul Hemoglobin 15.9 g/dl Hematocrit 46.4 % Mean Corpuscular Volume 92.6 fl Mean Corpuscular Hemoglobin 31.7 pg Mean Corpuscular Hemoglobin Concent 34.3 g/dl Red Cell Distribution Width 12.0 % Platelet Count 337 10^3/UL Mean Platelet Volume 9.4 fl Immature Granulocytes % 0.300 % Neutrophils % 60.3 % Lymphocytes % 26.7 % Monocytes % 7.6 % Eosinophils % 4.1 % Basophils % 1.0 % Nucleated Red Blood Cells % 0.0 /100WBC Immature Granulocytes # 0.020 10^3/ul Neutrophils # 4.3 10^3/ul Lymphocytes # 1.9 10^3/ul Monocytes # 0.5 10^3/ul Eosinophils # 0.3 10^3/ul Basophils # 0.1 10^3/ul Nucleated Red Blood Cells # 0.0 10^3/ul Sodium Level 137 mmol/L Potassium Level 4.5 mmol/L Chloride Level 93 mmol/L Carbon Dioxide Level 31 mmol/L Anion Gap 13 Blood Urea Nitrogen 11 mg/dl Creatinine 0.79 mg/dl Est Glomerular Filtrat Rate mL/min mL/min Glucose Level 124 mg/dl Calcium Level 10.3 mg/dl Total Bilirubin 0.5 mg/dl Direct Bilirubin 0.00 mg/dl Indirect Bilirubin 0.5 mg/dl Aspartate Amino Transf (AST/SGOT) 34 IU/L Alanine Aminotransferase (ALT/SGPT) 31 IU/L Alkaline Phosphatase 143 IU/L Troponin I < 0.012 ng/ml Total Protein 9.3 g/dl Albumin 4.9 g/dl Globulin 4.40 g/dl Albumin/Globulin Ratio 1.11 Lipase 75 U/L Urine Color STRAW Urine Clarity CLEAR Urine pH 6.0 Urine Specific Velarde 1.006 Urine Ketones NEGATIVE mg/dL Urine Nitrite NEGATIVE mg/dL Urine Bilirubin NEGATIVE mg/dL Urine Urobilinogen NEGATIVE mg/dL Urine Leukocyte Esterase 2+ Chloe/ul Urine Microscopic RBC 3 /HPF Urine Microscopic WBC 1 /HPF Urine Hemoglobin 1+ mg/dL Urine Glucose NEGATIVE mg/dL Urine Total Protein NEGATIVE mg/dl Current Medications Medications Dose Sig/Ijeoma Start Time Status Last (Trade) Ordered Route PRN Stop Time Admin Dose Reason Admin Diltiazem 10 mg ONCE ONCE 11/12/18 HCl IV 08:00 (Cardizem Iv) 11/12/18 08:01 Procedures/MDM Patient was taken to a room, seen and evaluated. Comfort measures were initiated. Diagnostic tests were ordered and reviewed. 3 LEAD RHYTHM STRIP: Atrial fibrillation with rapid ventricular response EK lead EKG reviewed by myself: A. fib with RVR Normal QRS and QT interval Nonspecific ST and T waves without ST elevation Impression: A. fib with RVR EKG was repeated and interpreted by myself A. fib with RVR Normal QRS and QT interval Nonspecific ST and T waves without ST elevation Impression: A. fib with RVR, no significant interval change RADIOLOGY: Reviewed with the radiologist CONSULTATION: Hospitalist was notified for admission REEVALUATION: 0740: Diagnostic test was appreciated and the patient was reevaluated. She continued to be in a rapid A. fib. She was given diltiazem to start controlling her heart rate decision was made to admit to the hospital. Her abdominal examination remained benign. MEDICAL DECISION MAKIN-year-old female presents with abdominal pain of uncertain etiology. Initial differential diagnosis focused on her abdomen. Her initial lab tests and imaging studies showed no signs of pancreatitis or other high-risk intra-abdominal concerns. However, she also is in a new onset A. fib with RVR and I have now concerned that this may be cardiac related. Patient's troponin is negative and this does not appear to be ischemic, but without a history of A. fib, she will require anticoagulation, admission to the hospital for further evaluation with consideration that this might be a cardiac presentation causing her abdominal pain. CRITICAL CARE: Time:>35 minutes Patient has a significant chance of clinical deterioration Treatments/Evaluations: Close monitoring and treatment of unstable vital signs, cardiorespiratory, and neurologic status, while maintaining tight balance of fluid, respiratory, and cardiac interventions. Departure Diagnosis: Primary Impression: Epigastric pain Additional Impression: Afib Condition: LAWRENCE Dudley Nov 12, 2018 07:43
[2018-11-12] MEDS ORDERED: DILTIAZEM 25 MG INJ IV ONE (08:00)
--- NOTE | 2018-11-12 13:18 | QN ---
Documentation Comment KARO RG ND, MD Nov 12, 2018 13:18
[2018-11-12] MEDS ORDERED: DOCUSATE SODIUM 100 MG CAP PO PRN (13:30)
[2018-11-12] MEDS ORDERED: NACL 0.9% 3 ML SYG IV SCH (13:30)
[2018-11-12] MEDS ORDERED: DILTIAZEM 25 MG INJ IV PRN ×2 (13:30→17:30)
[2018-11-12] MEDS ORDERED: ONDANSETRON 4 MG INJ IV PRN (13:30)
[2018-11-12] MEDS ORDERED: GLUCOSE GEL 15 GRAM TUBE PO PRN ×2 (14:00)
[2018-11-12] MEDS ORDERED: GLUCAGON 1 MG INJ IM PRN (14:00)
[2018-11-12] MEDS ORDERED: DEXTROSE 50% 50 ML SYRINGE IV PRN ×2 (14:00)
[2018-11-12] MEDS ORDERED: GLUCOSE GEL 15 GRAM TUBE BUCCAL PRN (14:00)
[2018-11-12] MEDS ORDERED: PANTOPRAZOLE 40 MG INJ IV ONE (14:13)
--- NOTE | 2018-11-12 15:20 | CONS ---
DATE OF ADMISSION: 11/12/2018 DATE OF CONSULTATION: HISTORY OF PRESENT ILLNESS: A 78-year-old female with a history of diabetes mellitus, hypertension, status post cholecystectomy and, gout, came to the ER complaining of epigastric pain for the last few days with a recent acute exacerbation last night. No nausea, no vomiting, no chest pain, no shortne ss of breath, no or [employer]OTHING [employer] problem, no fever, no chills. PAST MEDICAL HISTORY: 1. Diabetes mellitus. 2. Hypertension. 3. Gout. 4. Hyperlipidemia. MEDICATIONS: All reviewed. ALLERGIES: NONE. FAMILY HISTORY: Nothing contributory. SOCIAL HISTORY: Does not smoke or drink. No recreational drug. PHYSICAL EXAMINATION GENERAL: Well-built, nourished, not in distress. VITAL SIGNS: Stable. HEENT: Unremarkable. NECK: Supple, no thyromegaly, no lymphadenopathy. CARDIOVASCULAR: No murmur, gallop or click. LUNGS: Clear. ABDOMEN: Soft. Mild tenderness in the epigastric area. LUNGS: Clear. EXTREMITIES: No edema. CENTRAL NERVOUS SYSTEM: Grossly within normal limits. LABORATORY DATA: Alkaline phosphatase mildly elevated, which is 143. CBC is grossly within normal l imits. EKG showed a new onset of atrial fibrillation. IMPRESSION: 1. Atrial fibrillation, new onset. 2. Epigastric pain, rule out peptic ulcer disease, rule out gastritis, rule out bile duct stone. 3. Diabetes mellitus. 4. Hypertension. 5. Hyperlipidemia. 6. Gout. PLAN: 1. Plan at this point is to optimize the cardiac condition, atrial fibrillation. He should be conve rted into normal sinus rhythm. 2. PPI in the interim. 3. We will get MRCP since alkaline phosphatase is elevated especially in a patient who is a post-cho lecystectomy state. I want to make sure we are not missing a bile duct stone. Dictated By: JENNIFER KEENAN/NTS Conf#: [id number] DID#: [id number] CC: KARO SANTIAGO; JOHN MORALES MD;*End*
--- NOTE | 2018-11-12 15:36 | HP ---
DATE OF ADMISSION: 11/12/2018 REASON FOR ADMISSION: Abdominal pain. HISTORY OF PRESENT ILLNESS: This is a 78-year-old woman with past medical history of diabetes, hyper tension, status post cholecystectomy, presented to the emergency department complaining of epigastric abdominal pain for the last 10 days. According to the patient, the patient has a history of chronic abdominal pain, but has gotten worse for the last 10 days. She went to her PCP and she took some pa ntoprazole and Creon, but it did not help instead it was getting worse. She was feeling dizzy and ca me to the emergency department. The patient denied any nausea or vomiting. The patient used to be o n aspirin before which she stopped taking few years ago and she follows Dr. Leslie as an outpatient. P atient denied any orthopnea, PND, or lower extremity edema. On arrival to ED, vital signs showed tem perature 96.7, heart rate was 130. The patient was found to be in AFib. BMP within normal limit. C alcium was 10.3. White count was 7.1, hemoglobin 15.9, platelet count 337. Patient had a CT of the abdomen and pelvis that showed large stool burden. No evidence of small-bowel obstruction, free air or abscess. The patient received diltiazem 10 mg once and was admitted for further management. PAST MEDICAL HISTORY: 1. Diabetes. 2. Hypertension. 3. Hyperlipidemia. 4. Status post cholecystectomy. 5. Gout. ALLERGIES: NONE. PAST SURGICAL HISTORY: Status post cholecystectomy. MEDICATIONS: Taking at home: 1. Amlodipine 5. 2. Atenolol/hydrochlorothiazide. 3. Chlorthalidone. 4. Telmisartan 40. 5. Lipase protease. 6. Protonix 40. 7. Glipizide/metformin 2.5/500 b.i.d. 8. Allopurinol 300. SOCIAL HISTORY: No history of smoking, alcohol or any drug use. FAMILY HISTORY: Noncontributory. REVIEW OF SYSTEMS: The patient complains of epigastric pain, denies any nausea, vomiting, diarrhea. No history of gastric ulcers. Denies any hematemesis, any melena. According to the patient, she to ok some Pepto-Bismol as stool was dark a few days ago. Denies any headache, any shortness of breath, any orthopnea, PND, lower extremity edema. PHYSICAL EXAMINATION: VITAL SIGNS: Currently, heart rate 107, respiratory rate 18, blood pressure 120/60, saturating 98% o n room air. GENERAL: The patient is awake, alert, oriented, does not appear to in any acute distress. HEENT: Pupils equal, round, reactive to light. NECK: Supple. HEART: Irregularly irregular. LUNGS: Clear to auscultate bilaterally. ABDOMEN: Some tenderness present in the epigastric. Positive bowel sounds. EXTREMITIES: No clubbing, cyanosis, or edema. NEUROLOGIC: Nonfocal. LABORATORY DATA: BMP within normal limit. Calcium is mildly elevated. Alkaline phosphatase is 143, lipase 75. Troponin negative. White count 7.1, hemoglobin 15.9, platelet count 337. A CT of the a bdomen and pelvis is a large stool burden. No evidence of small-bowel obstruction, free air or absce ss. EKG shows AFib with RVR. ASSESSMENT AND PLAN: This is a 78-year-old female who presented with: 1. Atrial fibrillation with rapid ventricular response, new onset. The patient does not have any pr ior history. 2. Epigastric pain, could be related to angina versus peptic ulcer disease versus gastritis versus e sophagitis. 3. Mild hypercalcemia. 4. Diabetes. 5. Hypertension. 6. Hyperlipidemia. 7. Gout. PLAN: At this period of time, the patient will be admitted to telemetry. We will get serial EKGs, t roponins. The patient will be on Cardizem, metoprolol. I am not sure if patient has gastric ulcer h istory. Lilia put aspirin on hold. We will call cardiology consultation with Dr. Petersen and GI con sultation with Dr. Cuevas. Rest of the treatment will depend on the patient's hospitalization course . Dictated By: KARO VALENTINE/JULIO C Conf#: [id number] DID#: [id number]
--- NOTE | 2018-11-12 15:55 | RADRPT ---
Echocardiogram Report Patient Name: Kenney ESPINALnt ID: [id number] : 1940 (78y 2m)Study Date: 11/12/2018 1:54:28 PM Gender: FAccession #: [id number] Tech: Mick Lee [facility] Location: [facility] Ref.Physician: KARO SANTIAGO Height(Cm): BSA: Weight(Kg): Quality: AdequateAccount #: Procedures: Echocardiographic Report: Transthoracic echocardiogram with complete 2D, M-Mode, and doppler examination. Indications: Atrial Fibrillation. Measurements: 2D/M Mode Doppler Measurement Value Normal Range Measurement Value Normal Range LVIDd 2D 3.6 [ 3.8 - 5.2 ] cm AV Peak Jeff 1.3 [ 100.0 - 170.0 ] cm/sec LVIDs 2D 2.3 [ 2.2 - 3.5 ] cm AV Peak PG 7.0 [ 2.0 - 9.0 ] mmHg LVPWd 2D 1.1 [ 0.6 - 0.9 ] cm LVOT Peak Jeff 0.9 [ 70.0 - 110.0 ] cm/sec IVSd 2D 1.1 [ 0.6 - 0.9 ] cm LVOT Peak PG 4.0 [ 2.0 - 6.0 ] mmHg IVS/LVPW 2D 1.0 ratio MV E Peak Jeff 0.5 [ 60.0 - 130.0 ] cm/sec AoR Diam 2D 2.3 [ 2.3 - 3.1 ] cm MV A Peak Jeff 0.7 [ 100.0 - 120.0 ] cm/sec LA/Ao 2D 1 ratio MV E/A 0.7 [ 0.8 - 1.5 ] ratio LA Dimen 2D 3.4 [ 2.7 - 3.8 ] cm MV Decel Time 201 [ 104 - 258 ] msec Lat E` Jeff 0.1 [ 10.0 - 15.0 ] cm/sec MV E/A 0.7 [ 0.8 - 1.5 ] ratio TR Peak Jeff 2.6 [ 100.0 - 280.0 ] cm/sec TR Peak PG 27.0 mmHg RVSP 30.0 [ 10.0 - 36.0 ] mmHg Findings: Left Ventricle: Normal left ventricular systolic function. Normal left ventricular cavity size. Left ventricular wall thickness upper limits of normal. Ejection fraction is visually estimated at 55-60 %. Tissue Doppler/Mitral Doppler indices are consistent with impaired relaxation (Stage I diastolic dysfunction). Right Ventricle: Normal right ventricular size. Normal right ventricular systolic function. Left Atrium: The left atrium is normal in size. Right Atrium: The right atrium is normal in size. Mitral Valve: Mild mitral leaflet calcification. Mild mitral annular calcification. Trace mitral regurgitation. Aortic Valve: No significant aortic stenosis or insufficiency. Aortic cusps appear mildly calcified. Tricuspid Valve: Normal appearance of the tricuspid valve. Estimated peak PA systolic pressure 30 mmHg. There is mild tricuspid regurgitation. Pulmonic Valve: Pulmonic valve not well visualized. Pericardium: Normal pericardium with no significant pericardial effusion. Aorta: Normal aortic root. IVC: Normal size and normal respiratory collapse consistent with normal right atrial pressure. Conclusions: Normal left ventricular systolic function. Normal left ventricular cavity size. Left ventricular wall thickness upper limits of normal. Ejection fraction is visually estimated at 55-60 %. Tissue Doppler/Mitral Doppler indices are consistent with impaired relaxation (Stage I diastolic dysfunction). Mild mitral leaflet calcification. Mild mitral annular calcification. Trace mitral regurgitation. Normal appearance of the tricuspid valve. Estimated peak PA systolic pressure 30 mmHg. There is mild tricuspid regurgitation. Electronically Signed By: Afshin Petersen 2018-11-12 15:54:53 PDT
[2018-11-12 17:44] VITALS: PULSE 89
[2018-11-12 17:45] VITALS: BP 180/84; PULSE 85; RESP 12
[2018-11-12 17:56] VITALS: Ht 152.4 cm; Wt 60.6 kg
[2018-11-12] MEDS: INSULIN ASPART [NOVOLOG] 3 ML PEN SC SCH ×2 (18:00→22:00)
--- NOTE | 2018-11-12 18:39 | CONS ---
DATE OF ADMISSION: 11/12/2018 DATE OF CONSULTATION: 11/12/2018 REASON FOR CONSULTATION: Paroxysmal atrial fibrillation with rapid ventricular response. REQUESTING PHYSICIAN: Radha Gross MD HISTORY OF PRESENT ILLNESS: Ms. Lizama is a 78-year-old female with history of diabetes mellitus, hyp ertension, status post cholecystectomy and gout, who presented with complaints of epigastric abdomina l pain for approximately the last 10 days. The patient states that she was having some constipation, but did have a bowel movement and continued to have pain. The patient did have some dizziness and s ubsequently presented to the hospital here at [facility] where upon arrival, temper ature 96.7, blood pressure 168/106, pulse 130, respiratory rate 18, satting 97%. The patient's labs were notable for a white count 7.1, hemoglobin 15.9, platelet count 337, a sodium 137, potassium 4.5, creatinine 0.7, BUN 11, AST 34, ALT 31, alkaline phosphatase 143. Troponin negative. UA borderline . The patient underwent abdominopelvic CT revealing large stool burden, no evidence for small-bowel obstruction, few colonic diverticula, feculent small bowel content suggesting stasis. The patient's electrocardiogram revealed atrial fibrillation with rapid ventricular response, rate 122, normal axis and intervals with diffuse nonspecific ST abnormalities. The patient at this time has been treated with Protonix 40 mg IV x1, diltiazem 10 mg IV push x1 and has not had successful conversion to sinus rhythm, where she remains at this time at sinus rhythm, sinus tachycardia. PAST MEDICAL HISTORY: As above in HPI. The patient denied prior history of cardiac arrhythmia, miguel ángel estive heart failure, NM. MEDICATIONS CURRENTLY IN HOSPITAL: 1. Toprol-XL 25 mg daily. 2. Allopurinol 300 mg daily. 3. Protonix 40 mg IV daily. 4. Insulin. 5. Zofran p.r.n. 6. Colace p.r.n. 7. Diltiazem 5 mg IV push q.6. ALLERGIES: NO KNOWN DRUG ALLERGIES. SOCIAL HISTORY: No current tobacco, ETOH or illicit drug use. FAMILY HISTORY: No history of sudden cardiac or early CAD. REVIEW OF SYSTEMS: As above in HPI. CONSTITUTIONAL: No fevers, chills. PULMONARY: No current shortness of breath. CARDIOVASCULAR: Paroxysmal atrial fibrillation, currently in sinus rhythm, sinus tachycardia. GASTROINTESTINAL: Abdominal pain. GENITOURINARY: No hematuria. MUSCULOSKELETAL: Degenerative joint disease. PSYCHIATRIC: The patient denies depression. NEUROLOGIC: No documented history of CVA. PHYSICAL EXAMINATION VITAL SIGNS: Temperature of 98, blood pressure 135/76, pulse 60, respiration 20, satting 99%. GENERAL: The patient is alert, awake, complaining of abdominal pain. NECK: JVP approximately 8 to 9 cm of water. CHEST: Fair air movement throughout. HEART: Regular rate and rhythm. Normal S1, S2, I/ systolic murmur, nondisplaced PMI. ABDOMEN: Positive bowel sounds, soft. EXTREMITIES: No significant pitting edema, 1+ pulses bilaterally posterior tibial. LABORATORY DATA: No further labs for my review at this time. IMAGING STUDIES: As above in HPI. No further imaging studies for my review at this time. ECG: As above in HPI. No further electrograms for my review at this time. IMPRESSION: 1. Paroxysmal atrial fibrillation with rapid ventricular response, now converted to sinus rhythm, si nus tachycardia. 2. Hypertension. 3. Dyslipidemia. 4. Dizziness, assess for acute coronary syndrome, rule out ongoing cardiac arrhythmia, possible caus e. 5. Abdominal pain. 6. Constipation. 7. Gout. 8. Diabetes mellitus. RECOMMENDATIONS: 1. At this time, we would admit patient to telemetry monitoring to follow rhythm and rate closely an d assess for recurrent episodes of atrial fibrillation. 2. Continue the patient's Toprol at this time and we will place patient on Lovenox systemic anticoag ulation given elevated CHADS-VASc score to prevent thromboembolic complications from atrial fibrillat ion. 3. We will complete a rule out for myocardial infarction to ensure patient's EKG abnormalities are c hronic in nature and not due to any recent acute coronary syndromes. 4. We would check a fasting lipid panel for general risk stratification and initiate lipid-lowering medication as necessary. 5. Check a TSH to be sure subclinical hyperthyroidism is not contributing to bouts of atrial fibrill ation. 6. Continue the patient's insulin following blood sugars closely. 7. Additionally follow the patient's volume status closely. 8. Ongoing GI evaluation of abdominal pain. Thank you for allowing me to take part in the care of this patient. I will continue to follow him ve ry closely with you. Further recommendations will be made as the patient progresses through his [facility] clinical course. Dictated By: STEPHANIE NEWTON/JULIO C Conf#: [id number] DID#: [id number] CC: RADHA GROSS;*EndCC*
[2018-11-12] MEDS ORDERED: hydrALAzine 20 MG INJ IV PRN (19:00)
[2018-11-12] MEDS ORDERED: SOD CHLORIDE 0.9% 250 ML IV STA (19:13)
[2018-11-12 19:49] VITALS: BP 106/51; PULSE 89; RESP 15
[2018-11-12 20:00] VITALS: PULSE 90
[2018-11-12] MEDS ORDERED: ENOXAPARIN 60 MG/0.6 ML SYG SC SCH (21:00)
[2018-11-13] VITALS (14 sets, daily range): BP systolic 106–178; BP diastolic 52–78; PULSE 70–120; RESP 16–19
[2018-11-13] MEDS: ACCU-CHEK XX SCH (02:00)
[2018-11-13] MEDS ORDERED: PANTOPRAZOLE 40 MG INJ IV SCH (06:00)
[2018-11-13] MEDS: INSULIN ASPART [NOVOLOG] 3 ML PEN SC SCH ×4 (07:55→21:00)
--- NOTE | 2018-11-13 08:31 | CONS ---
Assessment/Plan Assessment/Plan Hospital Course (Demo Recall) 78-year-old female with a history of diabetes mellitus, hypertension, status post cholecystectomy and, gout, came to the ER complaining of epigastric pain for the last few days with a recent acute exacerbation of pain Interval hx: LFTs including alk wnl. WBC 11.2. Cholesterol 204. pt states abdominal pain improved. No nausea except last night when she had hypertensive episode. Pt does say she has been constipated for last few weeks which is new for her. She has never had colonoscopy. Eating well. Does not take pain medications. IMPRESSION: 1. Atrial fibrillation, new onset. 2. Epigastric pain, rule out peptic ulcer disease, rule out gastritis, rule out bile duct stone. -improved markedly -CT scan shows liver, pancreas, and gallbladder to be unremarkable. -Alk wnl today 3. Diabetes mellitus. 4. Hypertension. 5. Hyperlipidemia. 6. Gout. 7. Constipation- new onset x [address] abd 11/12: Large stool burden. No evidence for small bowel obstruction, free air, or abscess. Few colonic diverticula. No evidence for diverticulitis. Feculent small bowel content suggesting stasis. PLAN: MRCP EGD and colonoscopy tomorrow. Hold lovenox. CBC, CMP and INR in am. Bowel prep to start today at 1700. NPO p MN Optimize blood sugar Miralax 17 gms QD Cardiology recommendations Pt given Dr Cuevas's office number and asked to follow up with Dr Cuevas Pt examined and plan of care discussed with Dr. Cuevas. Consultation Date/Type/Reason Admit Date/Time Nov 12, 2018 at 10:57 Initial Consult Date Date/Time of Note DATE: 11/13/18 TIME: 08:31 Exam/Review of Systems Exam Vitals Vital Signs Date Temp Pulse Resp B/P (MAP) Pulse Ox O2 O2 Flow FiO2 Time Delivery Rate 11/13/18 87 08:14 11/13/18 98.0 18 108/53 95 Room Air 07:02 (71) Intake and Output 11/12/18 11/12/18 11/13/18 1515:00 23:00 07:00 IntakeIntake Total 250 ml BalanceBalance 250 ml Constitutional: alert, oriented Psych: no complaints Eyes: PERRL Respiratory: clear to auscultation Gastrointestinal: soft, non-tender Neurological: nl mental status, nl speech Results Result Diagram: 11/13/18 0511 11/13/18 0511 Results 24hrs Laboratory Tests Test 11/12/18 14:56 11/12/18 18:41 11/12/18 19:26 11/12/18 21:21 Creatine Kinase 41 38 Creatine Kinase 1.3 1.3 Index Creatinine Kinase MB 0.55 0.50 (Mass) Troponin I < 0.012 < 0.012 B-Type Natriuretic 859 H Peptide Bedside Glucose 107 145 Test 11/12/18 22:53 11/13/18 05:11 11/13/18 07:54 Bedside Glucose 142 100 White Blood Count 11.2 #H Red Blood Count 4.43 Hemoglobin 14.1 Hematocrit 41.1 Mean Corpuscular 92.8 Volume Mean Corpuscular 31.8 Hemoglobin Mean Corpuscular 34.3 Hemoglobin Concent Red Cell 12.3 Distribution Width Platelet Count 322 Mean Platelet Volume 9.8 Immature 0.400 Granulocytes % Neutrophils % 79.4 H Lymphocytes % 15.7 Monocytes % 4.0 Eosinophils % 0.1 Basophils % 0.4 Nucleated Red Blood 0.0 Cells % Immature 0.040 H Granulocytes # Neutrophils # 8.9 H Lymphocytes # 1.8 Monocytes # 0.5 Eosinophils # 0.0 Basophils # 0.0 Nucleated Red Blood 0.0 Cells # Sodium Level 137 Potassium Level 4.5 Chloride Level 100 Carbon Dioxide Level 28 Anion Gap 9 Blood Urea Nitrogen 15 Creatinine 0.96 Est Glomerular Filtrat Rate mL/min Glucose Level 129 Calcium Level 9.5 Phosphorus Level 5.0 H Magnesium Level 1.9 Total Bilirubin 0.6 Direct Bilirubin 0.00 Indirect Bilirubin 0.6 Aspartate Amino 23 Transf (AST/SGOT) Alanine 32 Aminotransferase (AL T/SGPT) Alkaline Phosphatase 92 Total Protein 7.5 # Albumin 4.1 Globulin 3.40 H Albumin/Globulin 1.20 Ratio Triglycerides Level 118 Cholesterol Level 204 H LDL Cholesterol, 132 Calculated HDL Cholesterol 48 Cholesterol/HDL 4.2 Ratio Thyroid Stimulating 0.902 Hormone (TSH) Medications Medication Current Medications IV Flush (NS 3 ml) 3 ml PER PROTOCOL IV ; Start 11/12/18 at 13:30 Ondansetron HCl (Zofran Inj) 4 mg Q6H PRN IV NAUSEA/VOMITING; Start 11/12/18 at 13:30 Docusate Sodium (Colace) 100 mg Q12H PRN PO .CONSTIPATION; Start 11/12/18 at 13:30 Pantoprazole (Protonix Iv) 40 mg DAILY@06 IV Last administered on 11/13/18at 06:01; Admin Dose 40 MG; Start 11/13/18 at 06:00 Diagnostic Test (Pha) (Accu-Chek) 1 ea 02 XX ; Start 11/13/18 at 02:00 Insulin Aspart (Novolog Insulin Pen) NOVOLOG *MILD* ALGORITHM WITH MEALS BEDTIME SC ; Start 11/12/18 at 18:00 Metoprolol Succinate (Toprol Xl) 25 mg DAILY PO ; Start 11/13/18 at 09:00 Allopurinol (Zyloprim) 300 mg DAILY PO ; Start 11/13/18 at 09:00 Miscellaneous Information 1 ea NOTE XX ; Start 11/12/18 at 14:00 Glucose (Glutose) 15 gm Q15M PRN PO DECREASED GLUCOSE; Start 11/12/18 at 14:00 Glucose (Glutose) 22.5 gm Q15M PRN PO DECREASED GLUCOSE; Start 11/12/18 at 14:00 Dextrose (D50w Syringe) 25 ml Q15M PRN IV DECREASED GLUCOSE; Start 11/12/18 at 14:00 Dextrose (D50w Syringe) 50 ml Q15M PRN IV DECREASED GLUCOSE; Start 11/12/18 at 14:00 Glucagon (Glucagen) 1 mg Q15M PRN IM DECREASED GLUCOSE; Start 11/12/18 at 14:00 Glucose (Glutose) 15 gm Q15M PRN BUCCAL DECREASED GLUCOSE; Start 11/12/18 at 14:00 Diltiazem HCl (Cardizem Iv) 5 mg Q4H PRN IV HR>110 Hold SBP<100; Start 11/12/18 at 17:30 Enoxaparin Sodium (Lovenox) 60 mg BID SC Last administered on 11/12/18at 21:10; Admin Dose 60 MG; Start 11/12/18 at 21:00 Clonidine (Catapres) 0.1 mg TID PO ; Start 11/12/18 at 21:00 Hydralazine HCl (Apresoline) 10 mg Q6H PRN IV ELEVATED BLOOD PRESSURE Last administered on 11/12/18at 18:45; Admin Dose 10 MG; Start 11/12/18 at 19:00 VIN CHAN Nov 13, 2018 08:31
[2018-11-13] MEDS ORDERED: BISACODYL (EC) 5 MG TAB PO ONE ×4 (09:00→20:00)
[2018-11-13] MEDS: POLYETHYLENE GLYCOL 17 GM PACKET PO SCH (09:51)
[2018-11-13] MEDS: ALLOPURINOL 300 MG TAB PO SCH (09:52)
[2018-11-13] MEDS: METOPROLOL (XL) 25 MG TAB PO SCH (09:52)
--- NOTE | 2018-11-13 10:04 | PN ---
Date/Time of Note Date/Time of Note DATE: 11/13/18 TIME: 10:04 Assessment/Plan VTE Prophylaxis Risk score (from [facility] [place]0 risk: 4 SCD applied (from [facility] [place]): No SCD contraindicated: low risk/ambulating Pharmacological prophylaxis: NA/contraindicated Pharm contraindication: low risk/ambulating Lines/Catheters IV Catheter Type (from [facility]): Saline Lock Assessment/Plan Hospital Course 78-year-old female who presented with: 1. Parosymal atrial fibrillation with rapid ventricular response, new onset. The patient does not have any prior history. Now converted to normal sinus rhythm 2. Epigastric pain, could be related to angina versus peptic ulcer disease versus gastritis versus esophagitis. r/o CBD stone 3. Mild hypercalcemia. 4. Diabetes. 5. Hypertension. 6. Hyperlipidemia. 7. Gout. 8 Dizziness, assess for acute coronary syndrome, rule out ongoing cardiac arrhythmia, 9 constipation plan -Continue with metoprolol/diltiazem as needed -Hold Lovenox in anticipation of EGD and colonoscopy tomorrow -MRI of the abdomen to rule out CBD stone -cw with PPI -fu With cardiac and GI recommendations -GI and DVT prophylaxis Result Diagram: 11/13/18 0511/13/18 0511 Results 24hrs Laboratory Tests Test 11/12/18 14:56 11/12/18 18:41 11/12/18 19:26 11/12/18 21:21 Creatine Kinase 41 38 Creatine Kinase 1.3 1.3 Index Creatinine Kinase MB 0.55 0.50 (Mass) Troponin I < 0.012 < 0.012 B-Type Natriuretic 859 H Peptide Bedside Glucose 107 145 Test 11/12/18 22:53 11/13/18 05:11 11/13/18 07:54 Bedside Glucose 142 100 White Blood Count 11.2 #H Red Blood Count 4.43 Hemoglobin 14.1 Hematocrit 41.1 Mean Corpuscular 92.8 Volume Mean Corpuscular 31.8 Hemoglobin Mean Corpuscular 34.3 Hemoglobin Concent Red Cell 12.3 Distribution Width Platelet Count 322 Mean Platelet Volume 9.8 Immature 0.400 Granulocytes % Neutrophils % 79.4 H Lymphocytes % 15.7 Monocytes % 4.0 Eosinophils % 0.1 Basophils % 0.4 Nucleated Red Blood 0.0 Cells % Immature 0.040 H Granulocytes # Neutrophils # 8.9 H Lymphocytes # 1.8 Monocytes # 0.5 Eosinophils # 0.0 Basophils # 0.0 Nucleated Red Blood 0.0 Cells # Sodium Level 137 Potassium Level 4.5 Chloride Level 100 Carbon Dioxide Level 28 Anion Gap 9 Blood Urea Nitrogen 15 Creatinine 0.96 Est Glomerular Filtrat Rate mL/min Glucose Level 129 Calcium Level 9.5 Phosphorus Level 5.0 H Magnesium Level 1.9 Total Bilirubin 0.6 Direct Bilirubin 0.00 Indirect Bilirubin 0.6 Aspartate Amino 23 Transf (AST/SGOT) Alanine 32 Aminotransferase (AL T/SGPT) Alkaline Phosphatase 92 Total Protein 7.5 # Albumin 4.1 Globulin 3.40 H Albumin/Globulin 1.20 Ratio Triglycerides Level 118 Cholesterol Level 204 H LDL Cholesterol, 132 Calculated HDL Cholesterol 48 Cholesterol/HDL 4.2 Ratio Thyroid Stimulating 0.902 Hormone (TSH) Subjective 24 Hr Interval Summary Free Text/Dictation Now converted into normal sinus rhythm Started on Lovenox yesterday secondary to A. fib ? Apparently patient had a reaction to hydralazine yesterday Exam/Review of Systems Exam Vitals Vital Signs Date Temp Pulse Resp B/P (MAP) Pulse Ox O2 O2 Flow FiO2 Time Delivery Rate 11/13/18 136/63 09:28 (87) 11/13/18 87 08:14 11/13/18 98.0 18 95 Room Air 07:02 Intake and Output 11/12/18 11/12/18 11/13/18 1515:00 23:00 07:00 IntakeIntake Total 250 ml BalanceBalance 250 ml Exam GENERAL: The patient is awake, alert, oriented, does not appear to in any acute distress. HEENT: Pupils equal, round, reactive to light. NECK: Supple. HEART: REGULAR I rate and rhythm with LUNGS: Clear to auscultate bilaterally. ABDOMEN: Some tenderness present in the epigastric. Positive bowel sounds. EXTREMITIES: No clubbing, cyanosis, or edema. NEUROLOGIC: Nonfocal. Results Results 24hrs Laboratory Tests Test 11/12/18 14:56 11/12/18 18:41 11/12/18 19:26 11/12/18 21:21 Creatine Kinase 41 38 Creatine Kinase 1.3 1.3 Index Creatinine Kinase MB 0.55 0.50 (Mass) Troponin I < 0.012 < 0.012 B-Type Natriuretic 859 H Peptide Bedside Glucose 107 145 Test 11/12/18 22:53 11/13/18 05:11 11/13/18 07:54 Bedside Glucose 142 100 White Blood Count 11.2 #H Red Blood Count 4.43 Hemoglobin 14.1 Hematocrit 41.1 Mean Corpuscular 92.8 Volume Mean Corpuscular 31.8 Hemoglobin Mean Corpuscular 34.3 Hemoglobin Concent Red Cell 12.3 Distribution Width Platelet Count 322 Mean Platelet Volume 9.8 Immature 0.400 Granulocytes % Neutrophils % 79.4 H Lymphocytes % 15.7 Monocytes % 4.0 Eosinophils % 0.1 Basophils % 0.4 Nucleated Red Blood 0.0 Cells % Immature 0.040 H Granulocytes # Neutrophils # 8.9 H Lymphocytes # 1.8 Monocytes # 0.5 Eosinophils # 0.0 Basophils # 0.0 Nucleated Red Blood 0.0 Cells # Sodium Level 137 Potassium Level 4.5 Chloride Level 100 Carbon Dioxide Level 28 Anion Gap 9 Blood Urea Nitrogen 15 Creatinine 0.96 Est Glomerular Filtrat Rate mL/min Glucose Level 129 Calcium Level 9.5 Phosphorus Level 5.0 H Magnesium Level 1.9 Total Bilirubin 0.6 Direct Bilirubin 0.00 Indirect Bilirubin 0.6 Aspartate Amino 23 Transf (AST/SGOT) Alanine 32 Aminotransferase (AL T/SGPT) Alkaline Phosphatase 92 Total Protein 7.5 # Albumin 4.1 Globulin 3.40 H Albumin/Globulin 1.20 Ratio Triglycerides Level 118 Cholesterol Level 204 H LDL Cholesterol, 132 Calculated HDL Cholesterol 48 Cholesterol/HDL 4.2 Ratio Thyroid Stimulating 0.902 Hormone (TSH) Medications Medication Current Medications IV Flush (NS 3 ml) 3 ml PER PROTOCOL IV ; Start 11/12/18 at 13:30 Ondansetron HCl (Zofran Inj) 4 mg Q6H PRN IV NAUSEA/VOMITING; Start 11/12/18 at 13:30 Docusate Sodium (Colace) 100 mg Q12H PRN PO .CONSTIPATION; Start 11/12/18 at 13:30 Pantoprazole (Protonix Iv) 40 mg DAILY@06 IV Last administered on 11/13/18at 06:01; Admin Dose 40 MG; Start 11/13/18 at 06:00 Diagnostic Test (Pha) (Accu-Chek) 1 ea 02 XX ; Start 11/13/18 at 02:00 Insulin Aspart (Novolog Insulin Pen) NOVOLOG *MILD* ALGORITHM WITH MEALS BEDTIME SC ; Start 11/12/18 at 18:00 Metoprolol Succinate (Toprol Xl) 25 mg DAILY PO Last administered on 11/13/18at 09:52; Admin Dose 25 MG; Start 11/13/18 at 09:00 Allopurinol (Zyloprim) 300 mg DAILY PO Last administered on 11/13/18at 09:52; Admin Dose 300 MG; Start 11/13/18 at 09:00 Miscellaneous Information 1 ea NOTE XX ; Start 11/12/18 at 14:00 Glucose (Glutose) 15 gm Q15M PRN PO DECREASED GLUCOSE; Start 11/12/18 at 14:00 Glucose (Glutose) 22.5 gm Q15M PRN PO DECREASED GLUCOSE; Start 11/12/18 at 14:00 Dextrose (D50w Syringe) 25 ml Q15M PRN IV DECREASED GLUCOSE; Start 11/12/18 at 14:00 Dextrose (D50w Syringe) 50 ml Q15M PRN IV DECREASED GLUCOSE; Start 11/12/18 at 14:00 Glucagon (Glucagen) 1 mg Q15M PRN IM DECREASED GLUCOSE; Start 11/12/18 at 14:00 Glucose (Glutose) 15 gm Q15M PRN BUCCAL DECREASED GLUCOSE; Start 11/12/18 at 14:00 Diltiazem HCl (Cardizem Iv) 5 mg Q4H PRN IV HR>110 Hold SBP<100; Start 11/12/18 at 17:30 Clonidine (Catapres) 0.1 mg TID PO Last administered on 11/13/18at 09:51; Admin Dose 0.1 MG; Start 11/12/18 at 21:00 Hydralazine HCl (Apresoline) 10 mg Q6H PRN IV ELEVATED BLOOD PRESSURE Last administered on 11/12/18at 18:45; Admin Dose 10 MG; Start 11/12/18 at 19:00 Polyethylene Glycol (Miralax) 17 gm DAILY PO Last administered on 11/13/18at 09:51; Admin Dose 17 GM; Start 11/13/18 at 09:00 Bisacodyl (Dulcolax) 10 mg ONCE ONCE PO ; Start 11/13/18 at 17:00; Stop 11/13/18 at 17:01 Polyethylene Glycol/ Electrolytes (Golytely) 2,000 ml ONCE ONCE PO ; Start 3/14/19 at 17:00; Stop 11/13/18 at 17:01 Polyethylene Glycol/ Electrolytes (Golytely) 2,000 ml 2nd Dose (GI Prep) ONCE PO ; Start 11/13/18 at 20:00; Stop 11/13/18 at 20:01 Bisacodyl (Dulcolax) 10 mg 2nd Dose (GI Prep) ONCE PO ; Start 11/13/18 at 20:00; Stop 11/13/18 at 20:01 KARO SANTIAGO MD Nov 13, 2018 10:04
--- NOTE | 2018-11-13 12:03 | CONS ---
Assessment/Plan Assessment/Plan Hospital Course (Demo Recall) IMPRESSION: 1. Paroxysmal atrial fibrillation with rapid ventricular response, now converted to sinus rhythm, sinus tachycardia.-remains in SR, neg trop x 3 2. Hypertension. 3. Dyslipidemia. 4. Dizziness, assess for acute coronary syndrome, rule out ongoing cardiac arrhythmia, possible cause. 5. Abdominal pain. 6. Constipation. 7. Gout. 8. Diabetes mellitus. Recc: -Tele -will f/u echo -pnding endoscopy with lovenox held in anticipation Consultation Date/Type/Reason Admit Date/Time Nov 12, 2018 at 10:57 Initial Consult Date 11/13/18 Type of Consult Cardiology Reason for Consultation AF Date/Time of Note DATE: 11/13/18 TIME: 11:59 Exam/Review of Systems Vital Signs Vitals Vital Signs Date Temp Pulse Resp B/P (MAP) Pulse Ox O2 O2 Flow FiO2 Time Delivery Rate 11/13/18 97.6 78 18 106/57 96 Room Air 11:00 (73) Intake and Output 11/12/18 11/12/18 11/13/18 1515:00 23:00 07:00 IntakeIntake Total 250 ml BalanceBalance 250 ml Exam Exam Review of Systems: CONSTITUTIONAL: No fevers, chills. PULMONARY: sob and cough CARDIOVASCULAR: No chest pain/palpitations GASTROINTESTINAL: No nausea/vomiting. GENITOURINARY: No hematuria/dysuria. MUSCULOSKELETAL: No myagias/arthalgias. PSYCHIATRIC: The patient denies depression. NEUROLOGIC: No weakness Constitutional: alert Psych: no complaints Head: normocephalic ENMT: mucosa pink and moist Neck: supple, jvd (9 cm water) Respiratory: diminished breath sounds (at bases/B) Cardiovascular: regular rate and rhythm Gastrointestinal: soft, non-tender Musculoskeletal: muscle tone (nomal) Extremities: edema (none) Neurological: other (No focal deficits) Labs Result Diagram: 11/13/18 0511 11/13/18 0511 Results 24hrs Laboratory Tests Test 11/12/18 14:56 11/12/18 18:41 11/12/18 19:26 11/12/18 21:21 Creatine Kinase 41 38 Creatine Kinase 1.3 1.3 Index Creatinine Kinase MB 0.55 0.50 (Mass) Troponin I < 0.012 < 0.012 B-Type Natriuretic 859 H Peptide Bedside Glucose 107 145 Test 11/12/18 22:53 11/13/18 05:11 11/13/18 07:54 Bedside Glucose 142 100 White Blood Count 11.2 #H Red Blood Count 4.43 Hemoglobin 14.1 Hematocrit 41.1 Mean Corpuscular 92.8 Volume Mean Corpuscular 31.8 Hemoglobin Mean Corpuscular 34.3 Hemoglobin Concent Red Cell 12.3 Distribution Width Platelet Count 322 Mean Platelet Volume 9.8 Immature 0.400 Granulocytes % Neutrophils % 79.4 H Lymphocytes % 15.7 Monocytes % 4.0 Eosinophils % 0.1 Basophils % 0.4 Nucleated Red Blood 0.0 Cells % Immature 0.040 H Granulocytes # Neutrophils # 8.9 H Lymphocytes # 1.8 Monocytes # 0.5 Eosinophils # 0.0 Basophils # 0.0 Nucleated Red Blood 0.0 Cells # Sodium Level 137 Potassium Level 4.5 Chloride Level 100 Carbon Dioxide Level 28 Anion Gap 9 Blood Urea Nitrogen 15 Creatinine 0.96 Est Glomerular Filtrat Rate mL/min Glucose Level 129 Calcium Level 9.5 Phosphorus Level 5.0 H Magnesium Level 1.9 Total Bilirubin 0.6 Direct Bilirubin 0.00 Indirect Bilirubin 0.6 Aspartate Amino 23 Transf (AST/SGOT) Alanine 32 Aminotransferase (AL T/SGPT) Alkaline Phosphatase 92 Total Protein 7.5 # Albumin 4.1 Globulin 3.40 H Albumin/Globulin 1.20 Ratio Triglycerides Level 118 Cholesterol Level 204 H LDL Cholesterol, 132 Calculated HDL Cholesterol 48 Cholesterol/HDL 4.2 Ratio Thyroid Stimulating 0.902 Hormone (TSH) Medications Medications Current Medications IV Flush (NS 3 ml) 3 ml PER PROTOCOL IV ; Start 11/12/18 at 13:30 Ondansetron HCl (Zofran Inj) 4 mg Q6H PRN IV NAUSEA/VOMITING; Start 11/12/18 at 13:30 Docusate Sodium (Colace) 100 mg Q12H PRN PO .CONSTIPATION; Start 11/12/18 at 13:30 Pantoprazole (Protonix Iv) 40 mg DAILY@06 IV Last administered on 11/13/18at 06:01; Admin Dose 40 MG; Start 11/13/18 at 06:00 Diagnostic Test (Pha) (Accu-Chek) 1 ea 02 XX ; Start 11/13/18 at 02:00 Insulin Aspart (Novolog Insulin Pen) NOVOLOG *MILD* ALGORITHM WITH MEALS BEDTIME SC ; Start 11/12/18 at 18:00 Metoprolol Succinate (Toprol Xl) 25 mg DAILY PO Last administered on 11/13/18at 09:52; Admin Dose 25 MG; Start 11/13/18 at 09:00 Allopurinol (Zyloprim) 300 mg DAILY PO Last administered on 11/13/18at 09:52; Admin Dose 300 MG; Start 11/13/18 at 09:00 Miscellaneous Information 1 ea NOTE XX ; Start 11/12/18 at 14:00 Glucose (Glutose) 15 gm Q15M PRN PO DECREASED GLUCOSE; Start 11/12/18 at 14:00 Glucose (Glutose) 22.5 gm Q15M PRN PO DECREASED GLUCOSE; Start 11/12/18 at 14:00 Dextrose (D50w Syringe) 25 ml Q15M PRN IV DECREASED GLUCOSE; Start 11/12/18 at 14:00 Dextrose (D50w Syringe) 50 ml Q15M PRN IV DECREASED GLUCOSE; Start 11/12/18 at 14:00 Glucagon (Glucagen) 1 mg Q15M PRN IM DECREASED GLUCOSE; Start 11/12/18 at 14:00 Glucose (Glutose) 15 gm Q15M PRN BUCCAL DECREASED GLUCOSE; Start 11/12/18 at 14:00 Diltiazem HCl (Cardizem Iv) 5 mg Q4H PRN IV HR>110 Hold SBP<100; Start 11/12/18 at 17:30 Clonidine (Catapres) 0.1 mg TID PO Last administered on 11/13/18at 09:51; Admin Dose 0.1 MG; Start 11/12/18 at 21:00 Hydralazine HCl (Apresoline) 10 mg Q6H PRN IV ELEVATED BLOOD PRESSURE Last administered on 11/12/18at 18:45; Admin Dose 10 MG; Start 11/12/18 at 19:00 Polyethylene Glycol (Miralax) 17 gm DAILY PO Last administered on 11/13/18at 09:51; Admin Dose 17 GM; Start 11/13/18 at 09:00 Bisacodyl (Dulcolax) 10 mg ONCE ONCE PO ; Start 11/13/18 at 17:00; Stop 11/13/18 at 17:01 Polyethylene Glycol/ Electrolytes (Golytely) 2,000 ml ONCE ONCE PO ; Start 11/13/18 at 17:00; Stop 11/13/18 at 17:01 Polyethylene Glycol/ Electrolytes (Golytely) 2,000 ml 2nd Dose (GI Prep) ONCE PO ; Start 11/13/18 at 20:00; Stop 11/13/18 at 20:01 Bisacodyl (Dulcolax) 10 mg 2nd Dose (GI Prep) ONCE PO ; Start 11/13/18 at 20:00; Stop 11/13/18 at 20:01 STEPHANIE FONTENOT 14, 2019 12:03
[2018-11-13] MEDS ORDERED: PEG/ELECTROLYTES 4L BTL PO ONE ×2 (17:00→20:00)
[2018-11-13] MEDS: FAMOTIDINE 20 MG INJ IV SCH (21:28)
[2018-11-14] VITALS (18 sets, daily range): BP systolic 110–189; BP diastolic 58–78; PULSE 59–91; RESP 16–21
[2018-11-14] MEDS: ACCU-CHEK XX SCH (01:37)
[2018-11-14] MEDS: INSULIN ASPART [NOVOLOG] 3 ML PEN SC SCH ×4 (08:00→21:00)
[2018-11-14] MEDS: POLYETHYLENE GLYCOL 17 GM PACKET PO SCH (08:05)
[2018-11-14] MEDS: ALLOPURINOL 300 MG TAB PO SCH (08:06)
[2018-11-14] MEDS: METOPROLOL (XL) 25 MG TAB PO SCH (08:06)
[2018-11-14] MEDS: FAMOTIDINE 20 MG INJ IV SCH ×2 (08:08→21:20)
--- NOTE | 2018-11-14 10:41 | PREAC ---
Date/Time of Note Date/Time of Note DATE: 11/14/18 TIME: 10:39 Anesthesia Eval and Record Evaluation Time Pre-Procedure Interview DATE: 11/14/18 TIME: 10:39 Age 78 Sex female NPO: 8 hrs Preoperative diagnosis abdominal pain, screening Planned procedure EGD, colonoscopy Past Medical History Past Medical History: Includes Cardio: HTN, Dyslipidemia, Arrythmia (atrial fibrillation) Endo: Diabetes Surgery & Anesthesia Issues No known issue Meds Anticoagulation: No Beta Jayshree within 24 hr: No Reason Beta Jayshree not given: Pt. not on B-Jayshree Reported Medications [id number]-[id number]* (Donny BELL* 36,000) 36,000 L-114,000-180,000 Unit Capsule., 1 TAB PO DAILY 11/12/18 Pantoprazole* (Pantoprazole*) 40 Mg Tablet., 40 MG PO AC BREAKFAST, TAB 11/12/18 Telmisartan (Telmisartan) 40 Mg Tablet, 40 MG PO DAILY, TAB 12/12/17 Allopurinol* (Allopurinol*) 300 Mg Tablet, 300 MG PO DAILY, TAB 12/12/17 Glipizide/Metformin HCl (Glipizide-Metformin 2.5-500 mg) 1 Each Tablet, 1 EACH PO BID, TAB 12/12/17 Atenolol/Chlorthalidone (Atenolol-Chlorthalidone 50-25) 1 Each Tablet, 1 EACH PO DAILY, TAB 12/12/17 Amlodipine Besylate* (Norvasc*) 5 Mg Tablet, 5 MG PO DAILY, TAB 12/12/17 Discontinued Scripts Clonidine Hcl* (Clonidine Hcl*) 0.1 Mg Tab, 0.1 MG PO Q6 PRN for ELEVATED SYSTOLIC BP, #14 TAB Prov:RICKIE OSBORN 02/11/18 Omeprazole* (Omeprazole*) 40 Mg Capsule., 40 MG PO DAILY, #30 CAP Prov:MANJU NICHOLE MD 12/12/17 Cephalexin* (Keflex*) 500 Mg Capsule, 500 MG PO QID for 5 Days, CAP Prov:MANJU NICHOLE MD 12/12/17 Mag Hydrox/Al Hydrox/Simeth (Maalox Advanced Suspension) 355 Ml Oral.susp, 2 TSP PO TID for PAIN AND/OR INFLAMMATION, #24 OZ Prov:MANJU NICHOLE MD 12/12/17 Current Medications IV Flush (NS 3 ml) 3 ml PER PROTOCOL IV ; Start 11/12/18 at 13:30 Ondansetron HCl (Zofran Inj) 4 mg Q6H PRN IV NAUSEA/VOMITING; Start 11/12/18 at 13:30 Docusate Sodium (Colace) 100 mg Q12H PRN PO .CONSTIPATION; Start 11/12/18 at 13:30 Diagnostic Test (Pha) (Accu-Chek) 1 ea 02 XX ; Start 11/13/18 at 02:00 Insulin Aspart (Novolog Insulin Pen) NOVOLOG *MILD* ALGORITHM WITH MEALS BEDTIME SC ; Start 11/12/18 at 18:00 Metoprolol Succinate (Toprol Xl) 25 mg DAILY PO Last administered on 11/13/18at 09:52; Admin Dose 25 MG; Start 11/13/18 at 09:00 Allopurinol (Zyloprim) 300 mg DAILY PO Last administered on 11/13/18at 09:52; Admin Dose 300 MG; Start 11/13/18 at 09:00 Miscellaneous Information 1 ea NOTE XX ; Start 11/12/18 at 14:00 Glucose (Glutose) 15 gm Q15M PRN PO DECREASED GLUCOSE; Start 11/12/18 at 14:00 Glucose (Glutose) 22.5 gm Q15M PRN PO DECREASED GLUCOSE; Start 11/12/18 at 14:00 Dextrose (D50w Syringe) 25 ml Q15M PRN IV DECREASED GLUCOSE; Start 11/12/18 at 14:00 Dextrose (D50w Syringe) 50 ml Q15M PRN IV DECREASED GLUCOSE; Start 11/12/18 at 14:00 Glucagon (Glucagen) 1 mg Q15M PRN IM DECREASED GLUCOSE; Start 11/12/18 at 14:00 Glucose (Glutose) 15 gm Q15M PRN BUCCAL DECREASED GLUCOSE; Start 11/12/18 at 14:00 Diltiazem HCl (Cardizem Iv) 5 mg Q4H PRN IV HR>110 Hold SBP<100; Start 11/12/18 at 17:30 Clonidine (Catapres) 0.1 mg TID PO Last administered on 11/13/18at 21:29; Admin Dose 0.1 MG; Start 11/12/18 at 21:00 Hydralazine HCl (Apresoline) 10 mg Q6H PRN IV ELEVATED BLOOD PRESSURE Last administered on 11/12/18at 18:45; Admin Dose 10 MG; Start 11/12/18 at 19:00 Polyethylene Glycol (Miralax) 17 gm DAILY PO Last administered on 11/13/18at 09:51; Admin Dose 17 GM; Start 11/13/18 at 09:00 Famotidine (Pepcid Iv) 10 mg BID IV Last administered on 11/14/18at 08:08; Admin Dose 10 MG; Start 11/13/18 at 21:00 Meds reviewed: Yes Allergies Coded Allergies: hydralazine (Verified Adverse Reaction, Severe, 11/13/18) dropped bp to 70 's mmhg from 180mmhg, became flushed and confused Allergies Reviewed: Yes Labs/Studies Labs Reviewed: Reviewed by anesthesiologist Result Diagram: 11/14/1822 11/13/18 0511 Laboratory Tests 11/14/18 05:22 test: N/A Studies: 2D Echo Pre-procedure Exam Last vitals Vital Signs Date Temp Pulse Resp B/P (MAP) Pulse Ox O2 O2 Flow FiO2 Time Delivery Rate 11/14/18 68 08:52 11/14/18 97.4 17 139/65 97 07:23 (89) 11/13/18 Room Air 15:40 Airway: Adequate mouth opening, Adequate thyromental dist Mallampati: Mallampati II Teeth: Normal Lung: Normal Heart: Normal ASA Physical Status ASA physical status: 2 Emergency: None Planned Anesthetic General/MAC: Mask Planned Pain Management Parenteral pain med Pre-operative Attestations Prior to commencing anesthesia and surgery, the patient was re-evaluated, there was verification of: *The patient's identity *The results of appropriate recent lab work and preoperative vital signs *The above evaluation not changing prior to induction *Anesthetic plan, risk benefits, alternative and complications discussed with patient/family; questions answered; patient/family understands, accepts and wishes to proceed. FARHEEN SUH MD Nov 14, 2018 10:41
[2018-11-14] MEDS ORDERED: LIDOCAINE 2% (SDV) 5 ML INJ ONE (11:14)
[2018-11-14] MEDS ORDERED: EPHEDrine 25 MG/5 ML SYG ONE (11:14)
[2018-11-14] MEDS ORDERED: PROPOFOL 40 ML ONE (11:14)
--- NOTE | 2018-11-14 11:28 | PAC ---
Date/Time of Note Date/Time of Note DATE: 11/14/18 TIME: 11:28 Post-Anesthesia Notes Post-Anesthesia Note Last documented vital signs Vital Signs Date Temp Pulse Resp B/P (MAP) Pulse Ox O2 O2 Flow FiO2 Time Delivery Rate 11/14/18 98.3 68 18 189/78 99 Room Air 10:45 (067) 68 Activity: WNL Respiratory function: WNL Cardiovascular function: WNL Mental status: Baseline Pain reasonably controlled: Yes Hydration appropriate: Yes Nausea/Vomiting absent: Yes Comments BP: 110/75 HR: 85 RR: 15 T: 98 SaO2: 98% FARHEEN SUH MD Nov 14, 2018 11:28
[2018-11-14] MEDS ORDERED: ONDANSETRON 4 MG INJ IV PRN (11:30)
[2018-11-14] MEDS ORDERED: HYDROmorphONE 1 MG/5 ML IV SYRINGE IV PRN (11:30)
--- NOTE | 2018-11-14 13:30 | PN ---
ALLYNTAMAR 11/14/18 1330: Date/Time of Note Date/Time of Note DATE: 11/14/18 TIME: 13:29 Assessment/Plan VTE Prophylaxis Risk score (from [facility] [place] risk: 5 SCD applied (from Ns): Yes Pharmacological prophylaxis: LMWH Lines/Catheters IV Catheter Type (from [facility]): Saline Lock Assessment/Plan Hospital Course 1. Paroxysmal atrial fibrillation with rapid ventricular response, new onset. The patient does not have any prior history. Now converted to normal sinus rhythm, since 11/12/2018 2. Acute gastritis without bleeding after EGD 11/14/2018 with epigastric pain. 3. Mild hypercalcemia. 4. Diabetes mellitus type II. 5. Hypertension. 6. Hyperlipidemia. 7. Gout. 8 Dizziness, assess for acute coronary syndrome, ruled out ongoing cardiac arrhythmia, 9 Constipation 10. Overweight 11. UTI 12. colonoscopy showed diverticulosis and hemorrhoids 13. Side branch intraductal papillary mucinous neoplasm (IPMN) found on MRI abdomen Assessment/Plan -Continue with metoprolol/diltiazem as needed -gi PROPHYLAXIS Famotidine bid -given prescription for Eliquiz for case management to check if covered -DVT prophylaxis, restart Lovenox -pt had EGD and colonoscopy today -MRI of the abdomen to rule out CBD stone, found neoplasm of pancreas -cw with PPI -fu With cardiac and GI recommendations -start Rocephin IV Result Diagram: 11/14/18 0511/13/18 0511 Results 24hrs Laboratory Tests Test 11/13/18 16:57 11/13/18 21:31 11/14/18 05:22 11/14/18 08:07 Bedside Glucose 147 111 97 White Blood Count 5.6 # Red Blood Count 4.23 Hemoglobin 13.4 Hematocrit 40.2 Mean Corpuscular 95.0 Volume Mean Corpuscular 31.7 Hemoglobin Mean Corpuscular 33.3 Hemoglobin Concent Red Cell 12.4 Distribution Width Platelet Count 287 Mean Platelet Volume 9.4 Immature 0.200 Granulocytes % Neutrophils % 50.7 Lymphocytes % 32.2 Monocytes % 8.9 Eosinophils % 6.8 Basophils % 1.2 Nucleated Red Blood 0.0 Cells % Immature 0.010 Granulocytes # Neutrophils # 2.9 Lymphocytes # 1.8 Monocytes # 0.5 Eosinophils # 0.4 Basophils # 0.1 Nucleated Red Blood 0.0 Cells # Prothrombin Time 11.8 L Prothrombin Time 0.9 Ratio INR International 0.86 Normalized Ratio Activated 29.0 Partial Thromboplast Time Test 11/14/18 10:38 11/14/18 12:22 Bedside Glucose 94 104 Subjective 24 Hr Interval Summary Constitutional: no complaints, improved Exam/Review of Systems Exam Vitals Vital Signs Date Temp Pulse Resp B/P (MAP) Pulse Ox O2 O2 Flow FiO2 Time Delivery Rate 11/14/18 82 12:09 11/14/18 20 140/78 98 Room Air 11:42 (98) 11/14/18 98.7 11:21 11/14/18 10 11:07 Intake and Output 11/13/18 11/13/18 11/14/18 1515:00 23:00 07:00 IntakeIntake Total 1340 ml 1400 ml BalanceBalance 1340 ml 1400 ml Constitutional: alert, oriented Respiratory: clear to auscultation Cardiovascular: regular rate and rhythm Gastrointestinal: soft Results Result Diagram: 11/14/18 0522 11/13/18 0511 Results 24hrs Laboratory Tests Test 11/13/18 16:57 11/13/18 21:31 11/14/18 05:22 11/14/18 08:07 Bedside Glucose 147 111 97 White Blood Count 5.6 # Red Blood Count 4.23 Hemoglobin 13.4 Hematocrit 40.2 Mean Corpuscular 95.0 Volume Mean Corpuscular 31.7 Hemoglobin Mean Corpuscular 33.3 Hemoglobin Concent Red Cell 12.4 Distribution Width Platelet Count 287 Mean Platelet Volume 9.4 Immature 0.200 Granulocytes % Neutrophils % 50.7 Lymphocytes % 32.2 Monocytes % 8.9 Eosinophils % 6.8 Basophils % 1.2 Nucleated Red Blood 0.0 Cells % Immature 0.010 Granulocytes # Neutrophils # 2.9 Lymphocytes # 1.8 Monocytes # 0.5 Eosinophils # 0.4 Basophils # 0.1 Nucleated Red Blood 0.0 Cells # Prothrombin Time 11.8 L Prothrombin Time 0.9 Ratio INR International 0.86 Normalized Ratio Activated 29.0 Partial Thromboplast Time Test 11/14/18 10:38 11/14/18 12:22 Bedside Glucose 94 104 Medications Medication Current Medications IV Flush (NS 3 ml) 3 ml PER PROTOCOL IV ; Start 11/12/18 at 13:30 Ondansetron HCl (Zofran Inj) 4 mg Q6H PRN IV NAUSEA/VOMITING; Start 11/12/18 at 13:30 Docusate Sodium (Colace) 100 mg Q12H PRN PO .CONSTIPATION; Start 11/12/18 at 13:30 Diagnostic Test (Pha) (Accu-Chek) 1 ea 02 XX ; Start 11/13/18 at 02:00 Insulin Aspart (Novolog Insulin Pen) NOVOLOG *MILD* ALGORITHM WITH MEALS BEDTIME SC ; Start 11/12/18 at 18:00 Metoprolol Succinate (Toprol Xl) 25 mg DAILY PO Last administered on 11/13/18at 09:52; Admin Dose 25 MG; Start 11/13/18 at 09:00 Allopurinol (Zyloprim) 300 mg DAILY PO Last administered on 11/13/18at 09:52; Admin Dose 300 MG; Start 11/13/18 at 09:00 Miscellaneous Information 1 ea NOTE XX ; Start 11/12/18 at 14:00 Glucose (Glutose) 15 gm Q15M PRN PO DECREASED GLUCOSE; Start 11/12/18 at 14:00 Glucose (Glutose) 22.5 gm Q15M PRN PO DECREASED GLUCOSE; Start 11/12/18 at 14:00 Dextrose (D50w Syringe) 25 ml Q15M PRN IV DECREASED GLUCOSE; Start 11/12/18 at 14:00 Dextrose (D50w Syringe) 50 ml Q15M PRN IV DECREASED GLUCOSE; Start 11/12/18 at 14:00 Glucagon (Glucagen) 1 mg Q15M PRN IM DECREASED GLUCOSE; Start 11/12/18 at 14:00 Glucose (Glutose) 15 gm Q15M PRN BUCCAL DECREASED GLUCOSE; Start 11/12/18 at 14:00 Diltiazem HCl (Cardizem Iv) 5 mg Q4H PRN IV HR>110 Hold SBP<100; Start 11/12/18 at 17:30 Clonidine (Catapres) 0.1 mg TID PO Last administered on 11/14/18at 12:49; Admin Dose 0.1 MG; Start 11/12/18 at 21:00 Hydralazine HCl (Apresoline) 10 mg Q6H PRN IV ELEVATED BLOOD PRESSURE Last administered on 11/12/18at 18:45; Admin Dose 10 MG; Start 3/13/19 at 19:00 Polyethylene Glycol (Miralax) 17 gm DAILY PO Last administered on 11/13/18at 09:51; Admin Dose 17 GM; Start 11/13/18 at 09:00 Famotidine (Pepcid Iv) 10 mg BID IV Last administered on 11/14/18at 08:08; Admin Dose 10 MG; Start 11/13/18 at 21:00 Hydromorphone HCl (Dilaudid) 0.2 mg PACU PRN IV MILD PAIN 1-3; Start 11/14/18 at 11:30; Stop 11/14/18 at 15:30 Ondansetron HCl (Zofran Inj) 4 mg PACU ORDER PRN IV NAUSEA/VOMITING; Start 11/14/18 at 11:30; Stop 11/14/18 at 15:30 KARO SANTIAGO MD 11/14/18 2141: Assessment/Plan Assessment/Plan Assessment/Plan seen and examined pancreatic neoplasm?? will need EUS Eliquis to be started> monitor for bleeding Result Diagram: 11/14/18 0522 11/13/18 0511 TAMAR GRUBER Nov 14, 2018 13:30 KARO SANTIAGO MD Nov 14, 2018 21:41
[2018-11-14] MEDS ORDERED: CEFTRIAXONE 1 GM/50 ML (PMX) 50 ML IVPB SCH (14:00)
--- NOTE | 2018-11-14 15:44 | CONS ---
Assessment/Plan Assessment/Plan Hospital Course (Demo Recall) IMPRESSION: 1. Paroxysmal atrial fibrillation with rapid ventricular response, now converted to sinus rhythm, sinus tachycardia.-remains in SR, neg trop x 3Echo 11/12 JH EF 55-60/DD 2. Hypertension. 3. Dyslipidemia. 4. Dizziness, assess for acute coronary syndrome, rule out ongoing cardiac arrhythmia, possible cause. 5. Abdominal pain. 6. Constipation. 7. Gout. 8. Diabetes mellitus. Recc: -Tele -Continue metoprolol/clonidine -Contiue abx's and f/u cx data -endoscopy today Consultation Date/Type/Reason Admit Date/Time Nov 12, 2018 at 10:57 Initial Consult Date 11/13/18 Type of Consult Cardiology Reason for Consultation PAF Requesting Provider: KARO SANTIAGO MD Date/Time of Note DATE: 11/14/18 TIME: 15:39 Exam/Review of Systems Vital Signs Vitals Vital Signs Date Temp Pulse Resp B/P (MAP) Pulse Ox O2 O2 Flow FiO2 Time Delivery Rate 11/14/18 97.8 73 17 133/63 96 15:23 (86) 11/14/18 Room Air 11:42 11/14/18 10 11:07 Intake and Output 11/13/18 11/13/18 11/14/18 1414:59 22:59 06:59 IntakeIntake Total 1340 ml 1400 ml BalanceBalance 1340 ml 1400 ml Exam Exam Review of Systems: CONSTITUTIONAL: No fevers, chills. PULMONARY: No sob CARDIOVASCULAR: No chest pain/palpitations GASTROINTESTINAL: No nausea/vomiting. GENITOURINARY: No hematuria/dysuria. MUSCULOSKELETAL: No myagias/arthalgias. PSYCHIATRIC: The patient denies depression. NEUROLOGIC: No weakness Constitutional: alert Psych: no complaints Head: normocephalic ENMT: mucosa pink and moist Neck: supple, jvd (9 cm water) Respiratory: diminished breath sounds Cardiovascular: regular rate and rhythm Gastrointestinal: soft, non-tender Musculoskeletal: muscle tone (normal) Extremities: edema (none) Neurological: other (No focal deficits) Labs Result Diagram: 11/14/18 0522 11/13/18 0511 Results 24hrs Laboratory Tests Test 11/13/18 16:57 11/13/18 21:31 11/14/18 05:22 11/14/18 08:07 Bedside Glucose 147 111 97 White Blood Count 5.6 # Red Blood Count 4.23 Hemoglobin 13.4 Hematocrit 40.2 Mean Corpuscular 95.0 Volume Mean Corpuscular 31.7 Hemoglobin Mean Corpuscular 33.3 Hemoglobin Concent Red Cell 12.4 Distribution Width Platelet Count 287 Mean Platelet Volume 9.4 Immature 0.200 Granulocytes % Neutrophils % 50.7 Lymphocytes % 32.2 Monocytes % 8.9 Eosinophils % 6.8 Basophils % 1.2 Nucleated Red Blood 0.0 Cells % Immature 0.010 Granulocytes # Neutrophils # 2.9 Lymphocytes # 1.8 Monocytes # 0.5 Eosinophils # 0.4 Basophils # 0.1 Nucleated Red Blood 0.0 Cells # Prothrombin Time 11.8 L Prothrombin Time 0.9 Ratio INR International 0.86 Normalized Ratio Activated 29.0 Partial Thromboplast Time Test 11/14/18 10:38 11/14/18 12:22 Bedside Glucose 94 104 Medications Medications Current Medications IV Flush (NS 3 ml) 3 ml PER PROTOCOL IV ; Start 11/12/18 at 13:30 Ondansetron HCl (Zofran Inj) 4 mg Q6H PRN IV NAUSEA/VOMITING; Start 11/12/18 at 13:30 Docusate Sodium (Colace) 100 mg Q12H PRN PO .CONSTIPATION; Start 11/12/18 at 13:30 Diagnostic Test (Pha) (Accu-Chek) 1 ea 02 XX ; Start 11/13/18 at 02:00 Insulin Aspart (Novolog Insulin Pen) NOVOLOG *MILD* ALGORITHM WITH MEALS BEDTIME SC ; Start 11/12/18 at 18:00 Metoprolol Succinate (Toprol Xl) 25 mg DAILY PO Last administered on 11/13/18at 09:52; Admin Dose 25 MG; Start 11/13/18 at 09:00 Allopurinol (Zyloprim) 300 mg DAILY PO Last administered on 11/13/18at 09:52; Admin Dose 300 MG; Start 11/13/18 at 09:00 Miscellaneous Information 1 ea NOTE XX ; Start 11/12/18 at 14:00 Glucose (Glutose) 15 gm Q15M PRN PO DECREASED GLUCOSE; Start 11/12/18 at 14:00 Glucose (Glutose) 22.5 gm Q15M PRN PO DECREASED GLUCOSE; Start 11/12/18 at 14:00 Dextrose (D50w Syringe) 25 ml Q15M PRN IV DECREASED GLUCOSE; Start 11/12/18 at 14:00 Dextrose (D50w Syringe) 50 ml Q15M PRN IV DECREASED GLUCOSE; Start 11/12/18 at 14:00 Glucagon (Glucagen) 1 mg Q15M PRN IM DECREASED GLUCOSE; Start 11/12/18 at 14:00 Glucose (Glutose) 15 gm Q15M PRN BUCCAL DECREASED GLUCOSE; Start 11/12/18 at 14:00 Diltiazem HCl (Cardizem Iv) 5 mg Q4H PRN IV HR>110 Hold SBP<100; Start 11/12/18 at 17:30 Clonidine (Catapres) 0.1 mg TID PO Last administered on 11/14/18at 12:49; Admin Dose 0.1 MG; Start 11/12/18 at 21:00 Hydralazine HCl (Apresoline) 10 mg Q6H PRN IV ELEVATED BLOOD PRESSURE Last administered on 11/12/18at 18:45; Admin Dose 10 MG; Start 11/12/18 at 19:00 Polyethylene Glycol (Miralax) 17 gm DAILY PO Last administered on 11/13/18at 09:51; Admin Dose 17 GM; Start 11/13/18 at 09:00 Famotidine (Pepcid Iv) 10 mg BID IV Last administered on 11/14/18at 08:08; Admin Dose 10 MG; Start 11/13/18 at 21:00 Ceftriaxone Sodium 50 ml @ 100 mls/hr Q24H IVPB Last administered on 11/14/18at 14:23; Admin Dose 100 MLS/HR; Start 11/14/18 at 14:00 Enoxaparin Sodium (Lovenox) 40 mg DAILY SC ; Start 11/15/18 at 09:00 STEPHANIE FONTENOT Nov 14, 2018 15:44
[2018-11-14] MEDS: APIXABAN 5 MG TABLET PO SCH (21:20)
[2018-11-15] VITALS (7 sets, daily range): BP systolic 119–149; BP diastolic 57–66; PULSE 63–69; RESP 16–22
[2018-11-15] MEDS: ACCU-CHEK XX SCH (01:42)
[2018-11-15] MEDS: INSULIN ASPART [NOVOLOG] 3 ML PEN SC SCH ×2 (08:00→12:00)
[2018-11-15] MEDS: POLYETHYLENE GLYCOL 17 GM PACKET PO SCH (08:03)
[2018-11-15] MEDS: ALLOPURINOL 300 MG TAB PO SCH (08:03)
[2018-11-15] MEDS: METOPROLOL (XL) 25 MG TAB PO SCH (08:04)
[2018-11-15] MEDS: APIXABAN 5 MG TABLET PO SCH (08:04)
[2018-11-15] MEDS: FAMOTIDINE 20 MG INJ IV SCH (08:05)
[2018-11-15] MEDS ORDERED: ENOXAPARIN 40 MG/0.4 ML SYG SC SCH (09:00)
--- NOTE | 2018-11-15 11:24 | CONS ---
Assessment/Plan Assessment/Plan Hospital Course (Demo Recall) Hospital Course (Demo Recall) 78-year-old female with a history of diabetes mellitus, hypertension, status post cholecystectomy and, gout, came to the ER complaining of epigastric pain for the last few days with a recent acute exacerbation of pain Interval hx: no more abdominal pain, No nausea or vomiting, no more constipation, tolerating diet well. IMPRESSION: 1. Atrial fibrillation, new onset. 2. Epigastric pain, rule out peptic ulcer disease, rule out gastritis, rule out bile duct stone. -improved markedly -CT scan shows liver, pancreas, and gallbladder to be unremarkable. -Alk wnl today 3. Diabetes mellitus. 4. Hypertension. 5. Hyperlipidemia. 6. Gout. 7. Constipation- new onset x [address] abd 11/12: Large stool burden. No evidence for small bowel obstruction, free air, or abscess. Few colonic diverticula. No evidence for diverticulitis. Feculent small bowel content suggesting stasis. PLAN: s/p EGD and colonoscopy-recoveing well GI prophylaxis Optimize blood sugar Cardiology recommendations Follow up with Dr Cuevas outpatient for Endoscopic ultrasound. Pt examined and plan of care discussed with Dr. Cuevas. Consultation Date/Type/Reason Admit Date/Time Nov 12, 2018 at 10:57 Initial Consult Date Requesting Provider: KARO SANTIAGO MD Date/Time of Note DATE: 11/15/18 TIME: 11:22 Exam/Review of Systems Exam Vitals Vital Signs Date Temp Pulse Resp B/P (MAP) Pulse Ox O2 O2 Flow FiO2 Time Delivery Rate 11/15/18 67 08:00 11/15/18 97.8 22 149/66 96 Room Air 07:15 (93) 11/14/18 10 11:07 Intake and Output 11/14/18 11/14/18 11/15/18 1515:00 23:00 07:00 IntakeIntake Total 900 ml 850 ml BalanceBalance 900 ml 850 ml Constitutional: alert, oriented Psych: no complaints Head: normocephalic Eyes: nl conjunctiva Neck: supple, non-tender Respiratory: clear to auscultation Cardiovascular: regular rate and rhythm Gastrointestinal: soft Musculoskeletal: nl extremities to inspection Extremities: normal pulses Neurological: TEMPLATE CLERK II-XII intact Skin: nl turgor Results Result Diagram: 11/15/18 0533 11/15/18 0533 Results 24hrs Laboratory Tests Test 11/14/18 12:22 11/14/18 17:13 11/14/18 21:29 11/15/18 05:33 Bedside Glucose 104 108 140 White Blood Count 6.5 Red Blood Count 4.21 Hemoglobin 13.4 Hematocrit 40.6 Mean Corpuscular 96.4 Volume Mean Corpuscular 31.8 Hemoglobin Mean Corpuscular 33.0 Hemoglobin Concent Red Cell 12.4 Distribution Width Platelet Count 286 Mean Platelet Volume 9.7 Immature 0.200 Granulocytes % Neutrophils % 55.6 Lymphocytes % 29.3 Monocytes % 7.0 Eosinophils % 6.5 Basophils % 1.4 Nucleated Red Blood 0.0 Cells % Immature 0.010 Granulocytes # Neutrophils # 3.6 Lymphocytes # 1.9 Monocytes # 0.5 Eosinophils # 0.4 Basophils # 0.1 Nucleated Red Blood 0.0 Cells # Sodium Level 141 Potassium Level 4.1 Chloride Level 104 Carbon Dioxide Level 27 Anion Gap 10 Blood Urea Nitrogen 14 Creatinine 0.89 Est Glomerular Filtrat Rate mL/min Glucose Level 145 Hemoglobin A1c 6.3 H Calcium Level 9.3 Test 11/15/18 08:02 Bedside Glucose 102 Medications Medication Current Medications IV Flush (NS 3 ml) 3 ml PER PROTOCOL IV ; Start 11/12/18 at 13:30 Ondansetron HCl (Zofran Inj) 4 mg Q6H PRN IV NAUSEA/VOMITING; Start 11/12/18 at 13:30 Docusate Sodium (Colace) 100 mg Q12H PRN PO .CONSTIPATION; Start 11/12/18 at 13:30 Diagnostic Test (Pha) (Accu-Chek) 1 ea 02 XX ; Start 11/13/18 at 02:00 Insulin Aspart (Novolog Insulin Pen) NOVOLOG *MILD* ALGORITHM WITH MEALS BEDTIME SC ; Start 11/12/18 at 18:00 Metoprolol Succinate (Toprol Xl) 25 mg DAILY PO Last administered on 11/15/18at 08:04; Admin Dose 25 MG; Start 11/13/18 at 09:00 Allopurinol (Zyloprim) 300 mg DAILY PO Last administered on 11/15/18at 08:03; Admin Dose 300 MG; Start 11/13/18 at 09:00 Miscellaneous Information 1 ea NOTE XX ; Start 11/12/18 at 14:00 Glucose (Glutose) 15 gm Q15M PRN PO DECREASED GLUCOSE; Start 11/12/18 at 14:00 Glucose (Glutose) 22.5 gm Q15M PRN PO DECREASED GLUCOSE; Start 11/12/18 at 14:00 Dextrose (D50w Syringe) 25 ml Q15M PRN IV DECREASED GLUCOSE; Start 11/12/18 at 14:00 Dextrose (D50w Syringe) 50 ml Q15M PRN IV DECREASED GLUCOSE; Start 11/12/18 at 14:00 Glucagon (Glucagen) 1 mg Q15M PRN IM DECREASED GLUCOSE; Start 11/12/18 at 14:00 Glucose (Glutose) 15 gm Q15M PRN BUCCAL DECREASED GLUCOSE; Start 11/12/18 at 14:00 Diltiazem HCl (Cardizem Iv) 5 mg Q4H PRN IV HR>110 Hold SBP<100; Start 11/12/18 at 17:30 Clonidine (Catapres) 0.1 mg TID PO Last administered on 11/15/18 08:04; Admin Dose 0.1 MG; Start 11/12/18 at 21:00 Hydralazine HCl (Apresoline) 10 mg Q6H PRN IV ELEVATED BLOOD PRESSURE Last administered on 11/12/18 18:45; Admin Dose 10 MG; Start 11/12/18 at 19:00 Polyethylene Glycol (Miralax) 17 gm DAILY PO Last administered on 11/15/18 08:03; Admin Dose 17 GM; Start 11/13/18 at 09:00 Famotidine (Pepcid Iv) 10 mg BID IV Last administered on 11/15/18 08:05; Admin Dose 10 MG; Start 11/13/18 at 21:00 Ceftriaxone Sodium 50 ml @ 100 mls/hr Q24H IVPB Last administered on 11/14/18 14:23; Admin Dose 100 MLS/HR; Start 11/14/18 at 14:00 Apixaban (Eliquis) 5 mg BID PO Last administered on 11/15/18 08:04; Admin Dose 5 MG; Start 11/14/18 at 21:00 ADRIANNE ESPINO NP Nov 15, 2018 11:24
--- NOTE | 2018-11-15 11:42 | PN ---
Date/Time of Note Date/Time of Note DATE: 11/15/18 TIME: 11:41 Assessment/Plan VTE Prophylaxis Risk score (from Ns)>0 risk: 3 SCD applied (from [facility] [place] No SCD contraindicated: other Pharmacological prophylaxis: apixaban Lines/Catheters IV Catheter Type (from [facility]): Saline Lock Assessment/Plan Hospital Course 1. Paroxysmal atrial fibrillation with rapid ventricular response, new onset. The patient does not have any prior history. Now converted to normal sinus rhythm, since 11/12/2018 2. Acute gastritis without bleeding after EGD 11/14/2018 with epigastric pain. 3. Mild hypercalcemia. 4. Diabetes mellitus type II, controlled HG A1 C 6.3. 5. Hypertension. 6. Hyperlipidemia. 7. Gout. 8 Dizziness, assess for acute coronary syndrome, resolved 9 Constipation 10. Overweight 11. UTI 12. colonoscopy showed diverticulosis and hemorrhoids 13. Side branch intraductal papillary mucinous neoplasm (IPMN) found on MRI abdomen Assessment/Plan -for neoplasm of pancreas dr Cuevas recommended outpatient endoscopic US - Continue with metoprolol/diltiazem as needed -GI PROPHYLAXIS Famotidine bid -given prescription for Eliquiz for case management to check if covered -DVT prophylaxis, started Eliquis yesterday , no signs of bleeding -pt had EGD and colonoscopy yesterday -MRI of the abdomen to rule out CBD stone, found neoplasm of pancreas -cw with PPI -fu With cardiac and GI recommendations discharge if cleared by dr Petersen, dr Cuevas cleared her Result Diagram: 11/15/18 0533 11/15/18 0533 Results 24hrs Laboratory Tests Test 11/14/18 12:22 11/14/18 17:13 11/14/18 21:29 11/15/18 05:33 Bedside Glucose 104 108 140 White Blood Count 6.5 Red Blood Count 4.21 Hemoglobin 13.4 Hematocrit 40.6 Mean Corpuscular 96.4 Volume Mean Corpuscular 31.8 Hemoglobin Mean Corpuscular 33.0 Hemoglobin Concent Red Cell 12.4 Distribution Width Platelet Count 286 Mean Platelet Volume 9.7 Immature 0.200 Granulocytes % Neutrophils % 55.6 Lymphocytes % 29.3 Monocytes % 7.0 Eosinophils % 6.5 Basophils % 1.4 Nucleated Red Blood 0.0 Cells % Immature 0.010 Granulocytes # Neutrophils # 3.6 Lymphocytes # 1.9 Monocytes # 0.5 Eosinophils # 0.4 Basophils # 0.1 Nucleated Red Blood 0.0 Cells # Sodium Level 141 Potassium Level 4.1 Chloride Level 104 Carbon Dioxide Level 27 Anion Gap 10 Blood Urea Nitrogen 14 Creatinine 0.89 Est Glomerular Filtrat Rate mL/min Glucose Level 145 Hemoglobin A1c 6.3 H Calcium Level 9.3 Test 11/15/18 08:02 Bedside Glucose 102 Subjective 24 Hr Interval Summary Constitutional: no complaints, improved Exam/Review of Systems Exam Vitals Vital Signs Date Temp Pulse Resp B/P (MAP) Pulse Ox O2 O2 Flow FiO2 Time Delivery Rate 11/15/18 97.6 63 22 119/57 96 Room Air 11:34 (77) 11/14/18 10 11:07 Intake and Output 11/14/18 11/14/18 11/15/18 1414:59 22:59 06:59 IntakeIntake Total 900 ml 850 ml BalanceBalance 900 ml 850 ml Constitutional: alert, oriented Respiratory: clear to auscultation Cardiovascular: regular rate and rhythm Gastrointestinal: soft Results Results 24hrs Laboratory Tests Test 11/14/18 12:22 11/14/18 17:13 11/14/18 21:29 11/15/18 05:33 Bedside Glucose 104 108 140 White Blood Count 6.5 Red Blood Count 4.21 Hemoglobin 13.4 Hematocrit 40.6 Mean Corpuscular 96.4 Volume Mean Corpuscular 31.8 Hemoglobin Mean Corpuscular 33.0 Hemoglobin Concent Red Cell 12.4 Distribution Width Platelet Count 286 Mean Platelet Volume 9.7 Immature 0.200 Granulocytes % Neutrophils % 55.6 Lymphocytes % 29.3 Monocytes % 7.0 Eosinophils % 6.5 Basophils % 1.4 Nucleated Red Blood 0.0 Cells % Immature 0.010 Granulocytes # Neutrophils # 3.6 Lymphocytes # 1.9 Monocytes # 0.5 Eosinophils # 0.4 Basophils # 0.1 Nucleated Red Blood 0.0 Cells # Sodium Level 141 Potassium Level 4.1 Chloride Level 104 Carbon Dioxide Level 27 Anion Gap 10 Blood Urea Nitrogen 14 Creatinine 0.89 Est Glomerular Filtrat Rate mL/min Glucose Level 145 Hemoglobin A1c 6.3 H Calcium Level 9.3 Test 11/15/18 08:02 Bedside Glucose 102 Medications Medication Current Medications IV Flush (NS 3 ml) 3 ml PER PROTOCOL IV ; Start 11/12/18 at 13:30 Ondansetron HCl (Zofran Inj) 4 mg Q6H PRN IV NAUSEA/VOMITING; Start 11/12/18 at 13:30 Docusate Sodium (Colace) 100 mg Q12H PRN PO .CONSTIPATION; Start 11/12/18 at 13:30 Diagnostic Test (Pha) (Accu-Chek) 1 ea 02 XX ; Start 11/13/18 at 02:00 Insulin Aspart (Novolog Insulin Pen) NOVOLOG *MILD* ALGORITHM WITH MEALS BEDTIME SC ; Start 11/12/18 at 18:00 Metoprolol Succinate (Toprol Xl) 25 mg DAILY PO Last administered on 11/15/18at 08:04; Admin Dose 25 MG; Start 11/13/18 at 09:00 Allopurinol (Zyloprim) 300 mg DAILY PO Last administered on 11/15/18at 08:03; Admin Dose 300 MG; Start 11/13/18 at 09:00 Miscellaneous Information 1 ea NOTE XX ; Start 11/12/18 at 14:00 Glucose (Glutose) 15 gm Q15M PRN PO DECREASED GLUCOSE; Start 11/12/18 at 14:00 Glucose (Glutose) 22.5 gm Q15M PRN PO DECREASED GLUCOSE; Start 11/12/18 at 14:00 Dextrose (D50w Syringe) 25 ml Q15M PRN IV DECREASED GLUCOSE; Start 11/12/18 at 14:00 Dextrose (D50w Syringe) 50 ml Q15M PRN IV DECREASED GLUCOSE; Start 11/12/18 at 14:00 Glucagon (Glucagen) 1 mg Q15M PRN IM DECREASED GLUCOSE; Start 11/12/18 at 14:00 Glucose (Glutose) 15 gm Q15M PRN BUCCAL DECREASED GLUCOSE; Start 11/12/18 at 14:00 Diltiazem HCl (Cardizem Iv) 5 mg Q4H PRN IV HR>110 Hold SBP<100; Start 11/12/18 at 17:30 Clonidine (Catapres) 0.1 mg TID PO Last administered on 11/15/18at 08:04; Admin Dose 0.1 MG; Start 11/12/18 at 21:00 Hydralazine HCl (Apresoline) 10 mg Q6H PRN IV ELEVATED BLOOD PRESSURE Last administered on 11/12/18at 18:45; Admin Dose 10 MG; Start 11/12/18 at 19:00 Polyethylene Glycol (Miralax) 17 gm DAILY PO Last administered on 11/15/18at 08:03; Admin Dose 17 GM; Start 11/13/18 at 09:00 Famotidine (Pepcid Iv) 10 mg BID IV Last administered on 11/15/18at 08:05; Admin Dose 10 MG; Start 11/13/18 at 21:00 Ceftriaxone Sodium 50 ml @ 100 mls/hr Q24H IVPB Last administered on 11/14/18at 14:23; Admin Dose 100 MLS/HR; Start 11/14/18 at 14:00 Apixaban (Eliquis) 5 mg BID PO Last administered on 11/15/18at 08:04; Admin Dose 5 MG; Start 11/14/18 at 21:00 TAMAR GRUBER 16, 2019 11:42
--- NOTE | 2018-11-15 12:03 | PDOCDIS ---
Discharge Instructions DIAGNOSIS Discharge Diagnosis UTI, gastritis, paroxismal Afib CONDITION [id number] Patient Condition: [id number] Stable HOME CARE INSTRUCTIONS: [id number] Your diet recommendation is: [id number] controlled carbs ACTIVITY: [id number] Activity Restrictions: [id number] No Restrictions Slowly Increase Activity Rest between Activity FOLLOW UP/APPOINTMENTS Follow-up Plan PCP [address] Cuevas 2 weeks Outpatient endoscopic outpatient US for new neoplasm of pancreas TAMAR GRUBER Nov 15, 2018 12:03
[2018-11-15] MEDS ORDERED: LEVO500T10 PO (12:07)
[2018-11-15] MEDS ORDERED: METO-335 PO (12:07)
[2018-11-15] MEDS ORDERED: APIX5TAB PO (12:07)
[2018-11-15] MEDS ORDERED: CLON0.1T14 PO (12:07)
--- NOTE | 2018-11-15 12:08 | DS ---
Date/Time of Note Date/Time of Note DATE: 11/15/18 TIME: 12:07 Discharge Summary Admission/Discharge Info Admit Date/Time Nov 12, 2018 at 10:57 Discharge Date/Time Discharge Diagnosis UTI, gastritis, paroxismal Afib Patient Condition: Stable Consults Dr Petersen cardiology, dr Cuevas GI Procedures EGD and colonoscopy Hospital Course This is a 78-year-old woman with past medical history of diabetes, hypertension, status post cholecystectomy, presented to the emergency department complaining of epigastric abdominal pain for the last 10 days. According to the patient, the patient has a history of chronic abdominal pain, but has gotten worse for the last 10 days. She went to her PCP and she took some pantoprazole and Creon, but it did not help instead it was getting worse. She was feeling dizzy and came to the emergency department. The patient denied any nausea or vomiting. The patient used to be on aspirin before which she stopped taking few years ago and she follows Dr. Leslie as an outpatient. Patient denied any orthopnea, PND, or lower extremity edema. On arrival to ED, vital signs showed temperature 96.7, heart rate was 130. The patient was found to be in AFib. BMP within normal limit. Calcium was 10.3. White count was 7.1, hemoglobin 15.9, platelet count 337. Patient had a CT of the abdomen and pelvis that showed large stool burden. No evidence of small-bowel obstruction, free air or abscess. The patient received diltiazem 10 mg once and was admitted for further management. PAST MEDICAL HISTORY: 1. Diabetes. 2. Hypertension. 3. Hyperlipidemia. 4. Status post cholecystectomy. 5. Gout. During hospitalization pt was on telemetry service. She converted to SR on 11/14/2018, there were no paroxysm of A.fib anymore. Dr Petersen was her qm consultant. We followed all his recommendations. She was continued on metoprolol/clonidine instead of her home medications. There were few laboratory tests run. Urinalysis showed UTI and she was started on Rocephin. Dr Cuevas consulted pt on gastroenterology. He performed EGD and colonoscopy. THere were found acute gastritis without any signs of bleeding. Colonoscopy showed diverticulosis and hemorrhoids. Pt dizziness is resolved and her condition greatly improved. Abdominal pain is decreased along with constipation. For paroxysmal atrial fibrillation pt was started on Eliquis and we monitored her for signs of bleeding for one day. There were no signs of bleeding. Pt was given coupon for Eliquis to continue it after discharge and she was instructed to be seen by the consultants in two weeks. 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 Dr Cuevas recommended to reevaluate neoplasm in 2 weeks by outpatient endoscopic US. Discharge ds: 1. Paroxysmal atrial fibrillation with rapid ventricular response, new onset. The patient does not have any prior history. Now converted to normal sinus rhythm, since 11/12/2018 2. Acute gastritis without bleeding after EGD 11/14/2018 with epigastric pain. 3. Mild hypercalcemia. 4. Diabetes mellitus type II, controlled HG A1 C 6.3. 5. Hypertension. 6. Hyperlipidemia. 7. Gout. 8 Dizziness, assess for acute coronary syndrome, resolved 9 Constipation 10. Overweight 11. UTI 12. colonoscopy showed diverticulosis and hemorrhoids 13. Side branch intraductal papillary mucinous neoplasm (IPMN) found on MRI abdomen Home Meds Active Scripts Apixaban* (Eliquis*) 5 Mg Tablet, 5 MG PO BID for 30 Days, TAB Prov:TAMAR GRUBER 11/15/18 Clonidine Hcl* (Catapres*) 0.1 Mg Tablet, 0.1 MG PO TID for 30 Days, TAB Prov:TAMAR GRUBER 11/15/18 Metoprolol Succinate* (Toprol XL*) 25 Mg Tab.sr.24h, 25 MG PO DAILY for 30 Days Prov:TAMAR GRUBER 11/15/18 Levofloxacin* (Levofloxacin*) 500 Mg Tablet, 500 MG PO DAILY for 6 Days, TAB Prov:TAMAR GRUBER 11/15/18 Reported Medications Jyozbi-Dxmwffdo-Flycehs* (Donny BELL* 36,000) 36,000 L-114,000-180,000 Unit Capsule.dr, 1 TAB PO DAILY 11/12/18 Pantoprazole* (Pantoprazole*) 40 Mg Tablet.dr, 40 MG PO AC BREAKFAST, TAB 11/12/18 Allopurinol* (Allopurinol*) 300 Mg Tablet, 300 MG PO DAILY, TAB 12/12/17 Glipizide/Metformin HCl (Glipizide-Metformin 2.5-500 mg) 1 Each Tablet, 1 EACH PO BID, TAB 12/12/17 Discontinued Reported Medications Telmisartan (Telmisartan) 40 Mg Tablet, 40 MG PO DAILY, TAB 12/12/17 Atenolol/Chlorthalidone (Atenolol-Chlorthalidone 50-25) 1 Each Tablet, 1 EACH PO DAILY, TAB 12/12/17 Amlodipine Besylate* (Norvasc*) 5 Mg Tablet, 5 MG PO DAILY, TAB 12/12/17 Discontinued Scripts Clonidine Hcl* (Clonidine Hcl*) 0.1 Mg Tab, 0.1 MG PO Q6 PRN for ELEVATED SYSTOLIC BP, #14 TAB Prov:RICKIE OSBORN 02/11/18 Omeprazole* (Omeprazole*) 40 Mg Capsule.dr, 40 MG PO DAILY, #30 CAP Prov:MANJU NICHOLE MD 12/12/17 Cephalexin* (Keflex*) 500 Mg Capsule, 500 MG PO QID for 5 Days, CAP Prov:MANJU NICHOLE MD 12/12/17 Mag Hydrox/Al Hydrox/Simeth (Maalox Advanced Suspension) 355 Ml Oral.susp, 2 TSP PO TID for PAIN AND/OR INFLAMMATION, #24 OZ Prov:MANJU NICHOLE MD 12/12/17 Follow-up Plan PCP [address] Cuevas 2 weeks Outpatient endoscopic US for new neoplasm of pancreas Primary Care Provider Angel Leslie MD Time spent on discharge: < 30 minutes Pending Labs Laboratory Tests Test 11/14/18 12:22 11/14/18 17:13 11/14/18 21:29 11/15/18 05:33 Bedside 104 108 140 Glucose mg/dL (70-220) mg/dL (70-220) mg/dL (70-220) White Blood 6.5 Count 10^3/ul (4.8-1 0.8) Red Blood 4.21 Count 10^6/ul (4.20- 5.40) Hemoglobin 13.4 g/dl (12.0-16. 0) Hematocrit 40.6 % (37.0-47.0) Mean 96.4 Corpuscular fl (82.0-101.0 Volume ) Mean 31.8 Corpuscular pg (29.0-33.0) Hemoglobin Mean 33.0 Corpuscular g/dl (32.0-37. Hemoglobin Conc 0) ent Red Cell 12.4 Distribution % (11.5-14.5) Width Platelet Count 286 10^3/UL (140-4 15) Mean Platelet 9.7 Volume fl (7.4-10.4) Immature 0.200 Granulocytes % % (0.001-0.429 ) Neutrophils % 55.6 % (39.0-77.0) Lymphocytes % 29.3 % (15.0-51.0) Monocytes % 7.0 % (0.0-11.0) Eosinophils % 6.5 % (0.0-7.0) Basophils % 1.4 % (0.0-2.0) Nucleated Red 0.0 Blood Cells % /100WBC (0.0-0 .0) Immature 0.010 Granulocytes # 10^3/ul (0.0-0 .031) Neutrophils # 3.6 10^3/ul (1.6-7 .5) Lymphocytes # 1.9 10^3/ul (0.8-2 .9) Monocytes # 0.5 10^3/ul (0.3-0 .9) Eosinophils # 0.4 10^3/ul (0.0-0 .5) Basophils # 0.1 10^3/ul (0.0-0 .1) Nucleated Red 0.0 Blood Cells # 10^3/ul (0.0-0 .0) Sodium Level 141 mmol/L (135-14 4) Potassium 4.1 Level mmol/L (3.5-5. 1) Chloride Level 104 mmol/L (97-110 ) Carbon Dioxide 27 Level mmol/L (21-31) Anion Gap 10 (5-13) Blood Urea 14 Nitrogen mg/dl (7-20) Creatinine 0.89 mg/dl (0.44-1. 00) Est Glomerular mL/min (>60) Filtrat Rate mL/min Glucose Level 145 mg/dl (70-220) Hemoglobin A1c 6.3 % (0-5.9) Calcium Level 9.3 mg/dl (8.4-10. 2) Test 11/15/18 08:02 11/15/18 11:42 Bedside 102 112 Glucose mg/dL (70-220) mg/dL (70-220) TAMAR GRUBER 16, 2019 12:08
== END 2018-11-15 14:00 | disposition home or self-care (01) ==
LOC: E/R 02:59 → EDBEDREQ 08:24 → 6WM 10:57
PROVIDERS: ADMIT Internal Medicine; ATTEND Internal Medicine
DX: I48.0 Paroxysmal atrial fibrillation (principal); K29.30 Chronic superficial gastritis without bleeding; I10 Essential (primary) hypertension; E78.5 Hyperlipidemia, unspecified; M10.9 Gout, unspecified; E11.9 Type 2 diabetes mellitus without complications; Z79.01 Long term (current) use of anticoagulants; E83.52 Hypercalcemia; R42 Dizziness and giddiness; K59.00 Constipation, unspecified; E66.3 Overweight; Z68.26 Body mass index [BMI] 26.0-26.9, adult
CPT/HCPCS: 36415; 43239; 74176; 80048; 80053; 80061; 81001; 82550; 82553; 82962; 83036; 83690; 83735; 83880; 84100; 84443; 84484; 85025; 85610; 85730; 88305; 88312; 93005; 93306; 99291; C8901; C9113; G0378; J0360; J0696; J1650; J1815; J7040; 74181

== ENCOUNTER 2018-12-28 22:20 | Emergency (ER) | payer MEDICARE, OTHER ==
[~2018-12-28] VITALS: Ht 165.1 cm; Wt 59.8 kg
[~2018-12-28 22:20] MED LIST changes: -AMLO5TAB4 PO; +APIX5TAB PO; -ATEN1TAB3 PO; -CEPH-443 PO; -CLON-379 PO; +CLON0.1T14 PO; +LEVO500T10 PO; +LIPA1CAP45 PO; -MAG355OR14 PO; +METO-335 PO; -OMEP40CA6 PO; +PANT40TA4 PO; -TELM40TA3 PO
[2018-12-28 22:22] VITALS: Ht 165.1 cm; Wt 59.8 kg
[2018-12-28] MEDS ORDERED: ONDANSETRON 4 MG INJ IV STA (22:37)
--- NOTE | 2018-12-28 22:41 | ERD ---
ER Documentation Chief Complaint Chief Complaint abd pain x 3 days; nauseous; took HTN med today; dizzy as well per pt HPI This is a 78-year-old female who presents for evaluation of abdominal pain for the last 3 days. Is associated with dizziness, in October 2018, the patient was admitted for atrial fibrillation, which may have been triggered by by abdominal pain. At that time the patient had an endoscopy, and had an abdominal work-up, which was negative for any findings aside from constipation. She feels the same pain today, she has not had a fever, no nausea or vomiting. She has not had any chest pain or shortness of breath. ROS All systems reviewed and are negative except as per history of present illness. Medications Home Meds Active Scripts Apixaban* (Eliquis*) 5 Mg Tablet, 5 MG PO BID for 30 Days, TAB Prov:TAMAR GRUBER 11/15/18 Clonidine Hcl* (Catapres*) 0.1 Mg Tablet, 0.1 MG PO TID for 30 Days, TAB Prov:TAMAR GRUBER 11/15/18 Metoprolol Succinate* (Toprol XL*) 25 Mg Tab.sr.24h, 25 MG PO DAILY for 30 Days Prov:TAMAR GRUBER 11/15/18 Levofloxacin* (Levofloxacin*) 500 Mg Tablet, 500 MG PO DAILY for 6 Days, TAB Prov:TAMAR GRUBER 11/15/18 Reported Medications Loytke-Lzvgthll-Wloqecz* (Creon DR* 36,000) 36,000 L-114,000-180,000 Unit Capsule., 1 TAB PO DAILY 11/12/18 Pantoprazole* (Pantoprazole*) 40 Mg Tablet.dr, 40 MG PO AC BREAKFAST, TAB 11/12/18 Allopurinol* (Allopurinol*) 300 Mg Tablet, 300 MG PO DAILY, TAB 12/12/17 Glipizide/Metformin HCl (Glipizide-Metformin 2.5-500 mg) 1 Each Tablet, 1 EACH PO BID, TAB 12/12/17 Allergies Allergies: Coded Allergies: hydralazine (Verified Adverse Reaction, Severe, 11/13/18) dropped bp to 70 's mmhg from 180mmhg, became flushed and confused PMhx/Soc History of Surgery: Yes (gall bladder removal 2 years ago) Anesthesia Reaction: No Hx Neurological Disorder: No Hx Respiratory Disorders: No Hx Cardiac Disorders: Yes (HTN) Hx Psychiatric Problems: No Hx Miscellaneous Medical Probl: No Hx Alcohol Use: No Hx Substance Use: No Hx Tobacco Use: No Physical Exam Vitals Vital Signs Date Temp Pulse Resp B/P (MAP) Pulse Ox O2 O2 Flow FiO2 Time Delivery Rate 12/28/18 97.8 60 15 145/67 99 Room Air 23:45 (93) 12/28/18 98.1 67 18 229/98 96 22:22 (141) Physical Exam Const: No acute distress, well-appearing nontoxic well-developed well- nourished Head: Atraumatic Eyes: Normal Conjunctiva ENT: Normal External Ears, Nose and Mouth. Neck: Full range of motion. No meningismus. Resp: Clear to auscultation bilaterally Cardio: Regular rate and rhythm, no murmurs Abd: Soft, non tender, non distended, no rebound or guarding, no McBurney's point tenderness. Normal bowel sounds Skin: No petechiae or rashes Back: No midline or flank tenderness Ext: No cyanosis, or edema Neur: Awake and alert and oriented x4, no cerebellar ataxia Psych: Normal Mood and Affect Result Diagram: 12/28/18224712/28/182247 Results 24 hrs Laboratory Tests Test 12/28/18 22:48 White Blood Count 8.2 10^3/ul Red Blood Count 4.14 10^6/ul Hemoglobin 13.0 g/dl Hematocrit 37.3 % Mean Corpuscular Volume 90.1 fl Mean Corpuscular Hemoglobin 31.4 pg Mean Corpuscular Hemoglobin Concent 34.9 g/dl Red Cell Distribution Width 11.2 % Platelet Count 297 10^3/UL Mean Platelet Volume 9.4 fl Immature Granulocytes % 0.600 % Neutrophils % 60.2 % Lymphocytes % 25.1 % Monocytes % 8.7 % Eosinophils % 4.8 % Basophils % 0.6 % Nucleated Red Blood Cells % 0.0 /100WBC Immature Granulocytes # 0.050 10^3/ul Neutrophils # 4.9 10^3/ul Lymphocytes # 2.1 10^3/ul Monocytes # 0.7 10^3/ul Eosinophils # 0.4 10^3/ul Basophils # 0.1 10^3/ul Nucleated Red Blood Cells # 0.0 10^3/ul Prothrombin Time 13.0 Sec Prothrombin Time Ratio 1.0 INR International Normalized Ratio 0.97 Urine Color STRAW Urine Clarity CLEAR Urine pH 7.0 Urine Specific [place] 1.005 Urine Ketones NEGATIVE mg/dL Urine Nitrite NEGATIVE mg/dL Urine Bilirubin NEGATIVE mg/dL Urine Urobilinogen NEGATIVE mg/dL Urine Leukocyte Esterase 1+ Chloe/ul Urine Microscopic RBC 1 /HPF Urine Microscopic WBC 1 /HPF Urine Bacteria FEW /HPF Urine Hemoglobin 1+ mg/dL Urine Glucose NEGATIVE mg/dL Urine Total Protein NEGATIVE mg/dl Sodium Level 125 mmol/L Potassium Level 3.8 mmol/L Chloride Level 85 mmol/L Carbon Dioxide Level 30 mmol/L Anion Gap 10 Blood Urea Nitrogen 14 mg/dl Creatinine 0.82 mg/dl Est Glomerular Filtrat Rate mL/min mL/min Glucose Level 154 mg/dl Calcium Level 9.2 mg/dl Total Bilirubin 0.4 mg/dl Direct Bilirubin 0.00 mg/dl Indirect Bilirubin 0.4 mg/dl Aspartate Amino Transf (AST/SGOT) 22 IU/L Alanine Aminotransferase (ALT/SGPT) 25 IU/L Alkaline Phosphatase 82 IU/L Troponin I < 0.012 ng/ml Total Protein 7.3 g/dl Albumin 4.1 g/dl Globulin 3.20 g/dl Albumin/Globulin Ratio 1.28 Lipase 39 U/L Current Medications Medications Dose Sig/Ijeoma Start Time Status Last (Trade) Ordered Route PRN Stop Time Admin Dose Reason Admin Morphine 4 mg ONCE STAT 12/28/18 DC Sulfate IV 22:37 (morphine) 12/28/18 22:39 Ondansetron 4 mg ONCE STAT 12/28/18 DC 12/28/18 HCl (Zofran IV 22:37 22:48 Inj) 12/28/18 22:39 Procedures/MDM This is a 78-year-old female who presents for evaluation of abdominal pain. On exam the patient had no peritoneal signs, she is given pain control in the ED which improved her symptoms, she was able to have a bowel movement in the ED, and felt better. Her labs showed no evidence of leukocytosis, and her CT abdomen pelvis did not show any acute findings. I did note that she had a sodium of 125, review of her records, show that her sodium has been this low in the past, she had no neuro deficits. I discussed this with the patient, I advised free water restriction, and I recommended that she recheck her labs in 48 hours, with her PMD, if she is unable to do this, I advised her to return to the ED for lab recheck, at discharge the patient was in no distress. Advised to return to the ED for any fever, any worsening symptoms or any other concerns, at discharge patient with no distress EKG: Rate/Rhythm: Normal Sinus Rhythm QRS, ST, T-waves: No changes consistent w/ acute ischemia Impression: No evidence of ischemia or arrhythmia Departure Diagnosis: Primary Impression: Abdominal pain Abdominal location: unspecified location Qualified Codes: R10.9 - Unspecified abdominal pain Additional Impression: Hyponatremia Condition: Stable MANJU GOMES MD Dec 28, 2018 22:41
[2018-12-28] MEDS: morphine 4 MG/ML VIAL IV STA ×2 (22:48→23:08)
[2018-12-29] MEDS ORDERED: SENN-120 PO (02:02)
[2018-12-29] MEDS ORDERED: POLY17PO6 PO (02:02)
[2018-12-29 02:05] VITALS: BP 119/64; PULSE 55; RESP 16
== END 2018-12-29 02:00 | disposition home or self-care (01) ==
LOC: E/R 22:20
DX: R10.9 Unspecified abdominal pain (principal); E87.1 Hypo-osmolality and hyponatremia; I10 Essential (primary) hypertension; R11.0 Nausea; Z79.01 Long term (current) use of anticoagulants
CPT/HCPCS: 71045; 74176; 80053; 81001; 83690; 84484; 85025; 85610; 93005; J2270; J2405; 36415; 96374

== ENCOUNTER 2018-12-31 18:00 | Emergency (ER) | payer MEDICARE, OTHER ==
[~2018-12-31] VITALS: Wt 58.5 kg
[~2018-12-31 18:00] MED LIST changes: +POLY17PO6 PO; +SENN-120 PO
[2018-12-31] MEDS ORDERED: METOCLOPRAMIDE 10 MG INJ IV STA (19:41)
[2018-12-31] MEDS ORDERED: SOD CHLORIDE 0.9% 1,000 ML IV STA (19:41)
[2018-12-31 20:00] VITALS: BP 166/82; PULSE 63; RESP 18
--- NOTE | 2019-01-01 10:52 | ERD ---
ER Documentation Chief Complaint Chief Complaint AP, DIZZT X'S 2 DAYS ROS All systems reviewed and are negative except as per history of present illness. Medications Home Meds Active Scripts Sennosides* (Senna Lax*) 8.6 Mg Tablet, 1 TAB PO BID for 7 Days, TAB Prov:MANJU GOMES MD 12/29/18 Polyethylene Glycol* (Miralax*) 17 Gm Powd.pack, 17 GM PO DAILY, #7 Prov:MANJU GOMES MD 12/29/18 Apixaban* (Eliquis*) 5 Mg Tablet, 5 MG PO BID for 30 Days, TAB Prov:TAMAR GRUBER 11/15/18 Clonidine Hcl* (Catapres*) 0.1 Mg Tablet, 0.1 MG PO TID for 30 Days, TAB Prov:TAMAR GRUBER 11/15/18 Metoprolol Succinate* (Toprol XL*) 25 Mg Tab.sr.24h, 25 MG PO DAILY for 30 Days Prov:TAMAR GRUBER 11/15/18 Levofloxacin* (Levofloxacin*) 500 Mg Tablet, 500 MG PO DAILY for 6 Days, TAB Prov:TAMAR GRUBER 11/15/18 Reported Medications Bsjzcq-Buqvpjuc-Feeeztv* (Donny BELL* 36,000) 36,000 L-114,000-180,000 Unit Capsule., 1 TAB PO DAILY 11/12/18 Pantoprazole* (Pantoprazole*) 40 Mg Tablet.dr, 40 MG PO AC BREAKFAST, TAB 11/12/18 Allopurinol* (Allopurinol*) 300 Mg Tablet, 300 MG PO DAILY, TAB 12/12/17 Glipizide/Metformin HCl (Glipizide-Metformin 2.5-500 mg) 1 Each Tablet, 1 EACH PO BID, TAB 12/12/17 Allergies Allergies: Coded Allergies: hydralazine (Verified Adverse Reaction, Severe, 11/13/18) dropped bp to 70 's mmhg from 180mmhg, became flushed and confused PMhx/Soc History of Surgery: Yes (gall bladder removal 2 years ago) Anesthesia Reaction: No Hx Neurological Disorder: No Hx Respiratory Disorders: No Hx Cardiac Disorders: Yes (HTN) Hx Psychiatric Problems: No Hx Miscellaneous Medical Probl: No Hx Alcohol Use: No Hx Substance Use: No Hx Tobacco Use: No Smoking Status: Never smoker Physical Exam Vitals Vital Signs Date Temp Pulse Resp B/P (MAP) Pulse Ox O2 O2 Flow FiO2 Time Delivery Rate 12/31/18 63 18 166/82 96 Room Air 20:00 (110) 12/31/18 97.2 67 18 191/86 97 18:22 (121) Physical Exam Const: No acute distress Head: Atraumatic Eyes: Normal Conjunctiva ENT: Normal External Ears, Nose and Mouth. Neck: Full range of motion. No meningismus. Resp: Clear to auscultation bilaterally Cardio: Regular rate and rhythm, no murmurs Abd: Soft, non tender, non distended. Normal bowel sounds Skin: No petechiae or rashes Back: No midline or flank tenderness Ext: No cyanosis, or edema Neur: Awake and alert Psych: Normal Mood and Affect Result Diagram: 12/31/18194412/31/181944 Results 24 hrs Laboratory Tests Test 12/31/18 19:45 White Blood Count 8.5 10^3/ul Red Blood Count 4.73 10^6/ul Hemoglobin 14.9 g/dl Hematocrit 42.2 % Mean Corpuscular Volume 89.2 fl Mean Corpuscular Hemoglobin 31.5 pg Mean Corpuscular Hemoglobin Concent 35.3 g/dl Red Cell Distribution Width 11.0 % Platelet Count 390 10^3/UL Mean Platelet Volume 9.2 fl Immature Granulocytes % 0.500 % Neutrophils % 61.6 % Lymphocytes % 24.1 % Monocytes % 8.8 % Eosinophils % 4.4 % Basophils % 0.6 % Nucleated Red Blood Cells % 0.0 /100WBC Immature Granulocytes # 0.040 10^3/ul Neutrophils # 5.3 10^3/ul Lymphocytes # 2.1 10^3/ul Monocytes # 0.8 10^3/ul Eosinophils # 0.4 10^3/ul Basophils # 0.1 10^3/ul Nucleated Red Blood Cells # 0.0 10^3/ul Urine Color STRAW Urine Clarity CLEAR Urine pH 7.0 Urine Specific Lydia 1.006 Urine Ketones NEGATIVE mg/dL Urine Nitrite NEGATIVE mg/dL Urine Bilirubin NEGATIVE mg/dL Urine Urobilinogen NEGATIVE mg/dL Urine Leukocyte Esterase 1+ Chloe/ul Urine Microscopic RBC 2 /HPF Urine Microscopic WBC 4 /HPF Urine Hemoglobin NEGATIVE mg/dL Urine Glucose NEGATIVE mg/dL Urine Total Protein NEGATIVE mg/dl Sodium Level 128 mmol/L Potassium Level 3.6 mmol/L Chloride Level 85 mmol/L Carbon Dioxide Level 32 mmol/L Anion Gap 11 Blood Urea Nitrogen 11 mg/dl Creatinine 0.74 mg/dl Est Glomerular Filtrat Rate mL/min mL/min Glucose Level 110 mg/dl Calcium Level 9.9 mg/dl Total Bilirubin 0.2 mg/dl Direct Bilirubin 0.00 mg/dl Indirect Bilirubin 0.2 mg/dl Aspartate Amino Transf (AST/SGOT) 21 IU/L Alanine Aminotransferase (ALT/SGPT) 16 IU/L Alkaline Phosphatase 117 IU/L Total Protein 8.3 g/dl Albumin 4.4 g/dl Globulin 3.90 g/dl Albumin/Globulin Ratio 1.12 Lipase 46 U/L Current Medications Medications Dose Sig/Ijeoma Start Time Status Last (Trade) Ordered Route PRN Stop Time Admin Dose Reason Admin Sodium 1,000 ml @ Q1H STAT 12/31/18 DC 12/31/18 Chloride 1,000 mls/hr IV 19:41 12/31/18 19:54 20:40 5 mg ONCE STAT 12/31/18 DC 12/31/18 Metoclopramid IV 19:41 12/31/18 19:54 e HCl 19:42 (Reglan) Departure Diagnosis: Primary Impression: Hyponatremia Additional Impression: Dizziness Condition: Stable Patient Instructions: Hyponatremia, Dizziness, Unk Cause Additional Instructions: You need to make an appointment with your primary care doctor within the next 1 to 2 days to discuss your low sodium and for further testing. Return to the ER if you are having any worsening symptoms. APPLE BENTLEY MD January 01, 2019 10:52
== END 2018-12-31 22:26 | disposition home or self-care (01) ==
LOC: E/R 18:00
DX: E87.1 Hypo-osmolality and hyponatremia (principal); R42 Dizziness and giddiness; I10 Essential (primary) hypertension; E11.9 Type 2 diabetes mellitus without complications; Z79.84 Long term (current) use of oral hypoglycemic drugs
CPT/HCPCS: 36415; 71045; 80053; 81001; 83690; 85025; 93005; 96374; 99285; J2765; J7030

== ENCOUNTER 2019-04-29 07:13 | Inpatient (IN) | payer MEDICARE, OTHER ==
[~2019-04-29] VITALS: Ht 152.4 cm; Wt 59.1 kg
[~2019-04-29 07:13] MED LIST changes: +ALPR0.254 PO; +AMIO200T4 PO; +CLON-379 PO; +ISOS30TA67 PO; +LOSA50TA2 PO; +MAGN400T28 PO; +METO-336 PO; +NAPH15DR69 BOTH EYES; +TELM80TA7 PO
[2019-04-29] MEDS ORDERED: NITROGLYCERIN 2% 1 GM OINT PKT TD STA (07:33)
[2019-04-29] MEDS ORDERED: ASPIRIN 325 MG TAB PO STA (07:33)
[2019-04-29] MEDS ORDERED: METOPROLOL 5 MG INJ IV ONE ×2 (08:00→08:30)
[2019-04-29] MEDS ORDERED: ONDANSETRON 4 MG INJ IV PRN (09:00)
[2019-04-29] MEDS ORDERED: ACETAMINOPHEN 325 MG TAB PO PRN ×2 (09:00→12:30)
[2019-04-29] MEDS ORDERED: HYDROCODONE/APAP (5/325) TAB PO PRN (12:30)
[2019-04-29] MEDS ORDERED: morphine 2 MG INJ IV PRN (12:30)
[2019-04-29] MEDS ORDERED: NACL 0.9% 3 ML SYG IV SCH (12:30)
[2019-04-29] MEDS ORDERED: ZOLPIDEM 5 MG TAB PO PRN (12:30)
[2019-04-29] MEDS ORDERED: DOCUSATE SODIUM 100 MG CAP PO PRN (12:30)
[2019-04-29] MEDS ORDERED: NAPHAZOLINE/PHENIRAMINE 15 ML OPH BOTH EYES PRN (13:00)
[2019-04-29] MEDS ORDERED: ALPRAZOLAM 0.25 MG TAB PO PRN (13:00)
[2019-04-29] MEDS: LOSARTAN 50 MG TAB PO SCH (13:42)
[2019-04-29] MEDS: MAGNESIUM OXIDE 400 MG TAB PO SCH (13:42)
[2019-04-29] MEDS: ISOSORBIDE MONONITRATE(SR)30 MG TAB PO SCH ×2 (13:42→22:26)
[2019-04-29] MEDS ORDERED: DILTIAZEM 25 MG INJ IV PRN (14:30)
[2019-04-29] MEDS: INSULIN ASPART [NOVOLOG] 3 ML PEN SC SCH ×2 (19:00→21:00)
[2019-04-29 21:56] VITALS: BP 211/98; PULSE 73; RESP 18
[2019-04-29 22:13] VITALS: Ht 152.4 cm; Wt 59.1 kg
[2019-04-29] MEDS: AMIODARONE 200 MG TAB PO SCH (22:25)
[2019-04-29] MEDS: APIXABAN 5 MG TABLET PO SCH (22:25)
[2019-04-30] VITALS (7 sets, daily range): BP systolic 109–201; BP diastolic 59–98; PULSE 55–79; RESP 18–55
[2019-04-30] MEDS: ACCU-CHEK XX SCH (02:00)
[2019-04-30] MEDS: PANTOPRAZOLE (EC) 40 MG TAB PO SCH (05:28)
[2019-04-30] MEDS: INSULIN ASPART [NOVOLOG] 3 ML PEN SC SCH ×4 (07:57→20:25)
[2019-04-30] MEDS: ISOSORBIDE MONONITRATE(SR)30 MG TAB PO SCH (07:57)
[2019-04-30] MEDS: AMIODARONE 200 MG TAB PO SCH ×3 (07:57→20:22)
[2019-04-30] MEDS: APIXABAN 5 MG TABLET PO SCH ×2 (07:58→20:25)
[2019-04-30] MEDS: MAGNESIUM OXIDE 400 MG TAB PO SCH (07:58)
[2019-04-30] MEDS: LOSARTAN 50 MG TAB PO SCH (07:58)
[2019-04-30] MEDS: METOPROLOL (XL) 100 MG TAB PO SCH (08:03)
[2019-04-30] MEDS: ONDANSETRON 4 MG INJ IV PRN ×2 (09:56→15:55)
[2019-04-30] MEDS: AL HYDROX/MG HYDROX/SIMETH 30 ML CUP PO PRN (23:05)
[2019-05-01] VITALS (7 sets, daily range): BP systolic 128–179; BP diastolic 66–82; PULSE 53–100; RESP 18–20
[2019-05-01] MEDS: ACCU-CHEK XX SCH (01:02)
[2019-05-01] MEDS: PANTOPRAZOLE (EC) 40 MG TAB PO SCH ×2 (05:55→07:14)
[2019-05-01] MEDS: INSULIN ASPART [NOVOLOG] 3 ML PEN SC SCH ×4 (08:00→20:23)
[2019-05-01] MEDS: METOPROLOL (XL) 100 MG TAB PO SCH (08:30)
[2019-05-01] MEDS: LOSARTAN 50 MG TAB PO SCH (08:30)
[2019-05-01] MEDS: APIXABAN 5 MG TABLET PO SCH ×2 (08:30→20:22)
[2019-05-01] MEDS: MAGNESIUM OXIDE 400 MG TAB PO SCH (08:30)
[2019-05-01] MEDS: AMIODARONE 200 MG TAB PO SCH ×3 (08:31→20:20)
[2019-05-01] MEDS: ISOSORBIDE MONONITRATE(SR)30 MG TAB PO SCH (08:31)
[2019-05-01] MEDS ORDERED: REGADENOSON 0.4 MG/5 ML SYG ONE (13:36)
[2019-05-01] MEDS: AL HYDROX/MG HYDROX/SIMETH 30 ML CUP PO PRN (20:22)
[2019-05-02] VITALS (7 sets, daily range): BP systolic 117–177; BP diastolic 58–74; PULSE 54–69; RESP 16–20
[2019-05-02] MEDS: ACCU-CHEK XX SCH (02:00)
[2019-05-02] MEDS: PANTOPRAZOLE (EC) 40 MG TAB PO SCH (05:33)
[2019-05-02] MEDS: INSULIN ASPART [NOVOLOG] 3 ML PEN SC SCH ×4 (07:34→20:11)
[2019-05-02] MEDS: MAGNESIUM OXIDE 400 MG TAB PO SCH (07:35)
[2019-05-02] MEDS: LOSARTAN 50 MG TAB PO SCH (07:35)
[2019-05-02] MEDS: APIXABAN 5 MG TABLET PO SCH ×2 (07:35→20:11)
[2019-05-02] MEDS: ISOSORBIDE MONONITRATE(SR)30 MG TAB PO SCH (07:35)
[2019-05-02] MEDS: METOPROLOL (XL) 100 MG TAB PO SCH (07:35)
[2019-05-02] MEDS: AMIODARONE 200 MG TAB PO SCH ×3 (07:36→20:10)
[2019-05-02] MEDS ORDERED: GLUCAGON 1 MG INJ IM PRN (13:30)
[2019-05-02] MEDS ORDERED: GLUCOSE GEL 15 GRAM TUBE PO PRN ×2 (13:30)
[2019-05-02] MEDS ORDERED: GLUCOSE GEL 15 GRAM TUBE BUCCAL PRN (13:30)
[2019-05-02] MEDS ORDERED: DEXTROSE 50% 50 ML SYRINGE IV PRN ×2 (13:30)
[2019-05-02] MEDS: AL HYDROX/MG HYDROX/SIMETH 30 ML CUP PO PRN (20:11)
[2019-05-03 00:22] VITALS: BP 162/70; PULSE 58; RESP 16
[2019-05-03] MEDS: ACCU-CHEK XX SCH (01:11)
[2019-05-03 04:50] VITALS: BP 160/76; PULSE 52; RESP 18
[2019-05-03] MEDS: PANTOPRAZOLE (EC) 40 MG TAB PO SCH (05:27)
[2019-05-03 07:36] VITALS: BP 139/65; PULSE 51; RESP 18
[2019-05-03] MEDS: INSULIN ASPART [NOVOLOG] 3 ML PEN SC SCH ×2 (08:00→12:00)
[2019-05-03] MEDS: MAGNESIUM OXIDE 400 MG TAB PO SCH (09:18)
[2019-05-03] MEDS: ISOSORBIDE MONONITRATE(SR)30 MG TAB PO SCH (09:18)
[2019-05-03] MEDS: AMIODARONE 200 MG TAB PO SCH ×2 (09:19→12:45)
[2019-05-03] MEDS: METOPROLOL (XL) 100 MG TAB PO SCH (09:19)
[2019-05-03] MEDS: APIXABAN 5 MG TABLET PO SCH (09:20)
[2019-05-03] MEDS: LOSARTAN 50 MG TAB PO SCH (09:20)
[2019-05-03 11:53] VITALS: BP 126/66; PULSE 52; RESP 18
[2019-05-03 12:45] VITALS: PULSE 56
== END 2019-05-03 16:25 | disposition home or self-care (01) | DRG 310 ==
LOC: E/R 07:13 → 6WM 08:43 → UNDOADMIN 08:43 → 6WM 08:43 → OBSVTOIN 05-01 07:13
PROVIDERS: ADMIT Internal Medicine; ATTEND Internal Medicine
DX: I48.0 Paroxysmal atrial fibrillation (principal); I10 Essential (primary) hypertension; E78.5 Hyperlipidemia, unspecified; E11.9 Type 2 diabetes mellitus without complications; R94.31 Abnormal electrocardiogram [ECG] [EKG]; R42 Dizziness and giddiness; M10.9 Gout, unspecified; Z79.01 Long term (current) use of anticoagulants; Z79.84 Long term (current) use of oral hypoglycemic drugs
CPT/HCPCS: 36415; 71045; 78452; 80048; 80053; 80061; 81001; 82550; 82553; 82962; 83036; 83735; 84100; 84443; 84484; 85025; 85610; 85730; 93005; 93017; 93306; 96374; A9500; A9505; G0378; J1815; J2405; J2785

== ENCOUNTER → 2019-06-30 | Outpatient (CLI) | payer MEDICARE, OTHER ==
[~2019-06-30] MED LIST changes: -ALLO300T2 PO; +CEPH-443 PO; -CLON0.1T14 PO; +FAMO-96 PO; +IOHEXOL 100 ML ONE; -LEVO500T10 PO; -LIPA1CAP45 PO; +MAG-19 PO; -METO-335 PO; +NITROGLYCERIN AEROSOL (4.9 GM) ONE; +OMEP20CA17 PO; +ONDA4TAB8 PO; -PANT40TA4 PO; -POLY17PO6 PO; -SENN-120 PO; +SOD CHLORIDE 0.9% 100 ML ONE; +SUCR1TAB56 PO; -TELM80TA7 PO
== END | disposition home or self-care (01) ==
LOC: C/S 10:20
PROVIDERS: ATTEND Internal Medicine
DX: R07.9 Chest pain, unspecified (principal)
CPT/HCPCS: 75571; 75574; Q9967

== ENCOUNTER 2019-07-03 14:49 | Emergency (ER) | payer MEDICARE, OTHER ==
[~2019-07-03] VITALS: Ht 152.4 cm; Wt 58.3 kg
[~2019-07-03 14:49] MED LIST changes: -IOHEXOL 100 ML ONE; -NITROGLYCERIN AEROSOL (4.9 GM) ONE; -SOD CHLORIDE 0.9% 100 ML ONE
[2019-07-03] MEDS ORDERED: SOD CHLORIDE 0.9% 500 ML IV STA (14:57)
[2019-07-03 15:32] VITALS: Ht 152.4 cm; Wt 58.3 kg
[2019-07-03 19:15] VITALS: BP 187/89; PULSE 55; RESP 16
== END 2019-07-03 19:17 | disposition home or self-care (01) ==
LOC: E/R 14:49
DX: R53.1 Weakness (principal); I10 Essential (primary) hypertension; R42 Dizziness and giddiness; Z79.01 Long term (current) use of anticoagulants; Z79.84 Long term (current) use of oral hypoglycemic drugs
CPT/HCPCS: 36415; 70450; 71045; 80053; 81001; 82962; 84484; 85025; 93005; 96360; 99285; J7040